=== PATIENT | female | born 1940 | race Caucasian/White ===

== ENCOUNTER 2019-09-18 08:33 | Outpatient (CLI) | payer MEDICARE, OTHER, SELFPAY ==
--- NOTE | 2019-09-18 | XR_ITS ---
WS: [id number] RIGHT SHOULDER: 3 VIEW(S) TECHNIQUE: Internal and external rotation with Y view. HISTORY: RT SHOULDER PAIN X 3 WEEKS COMPARISON: None available. No fracture or dislocation or soft tissue abnormality. Moderate to severe narrowing of the AC joint with small osteophytes extending inferiorly from the acr omion. There is additional hypertrophic bone formation from the posterior acromion extending towards the humeral head. Very mild narrowing of the glenohumeral joint. XR/XR shoulder RT min 2V* [id number] IMPRESSION: 1. Moderate to severe AC joint arthritis. 2. Large osteophyte on the posterior surface of the acromion may be encroachin g upon the posterior humeral head.
== END 2019-09-18 08:34 | disposition home or self-care (01) ==
LOC: RADOUTREAD 12:13
PROVIDERS: Family Provider Family Medicine; PCP Family Medicine; Visit Provider Nurse Practitioner
DX: Z76.89 Persons encountering health services in other specified circumstances (principal)

== ENCOUNTER → 2019-09-26 08:30 | Outpatient (BNVA) | payer MEDICARE, OTHER, SELFPAY | PROVIDERS: Family Provider Family Medicine; PCP Family Medicine; Visit Provider Internal Medicine Cardiovascular Disease | DX: E78.5 Hyperlipidemia, unspecified (principal) | CPT/HCPCS: 80061; 80076 ==

== ENCOUNTER 2019-10-07 07:21 | Outpatient (RCR) | payer MEDICARE, OTHER, SELFPAY | END 2019-10-28 23:59 | disposition home or self-care (01) | LOC: SPT 07:21 | PROVIDERS: Family Provider Family Medicine; PCP Family Medicine; Referring Provider Orthopaedic Surgery; Visit Provider Orthopaedic Surgery | DX: M75.21 Bicipital tendinitis, right shoulder (principal) | CPT/HCPCS: 97110; 97162; G0283 ==

== ENCOUNTER 2019-10-29 06:00 | Outpatient (RCR) | payer MEDICARE, OTHER, SELFPAY | END 2019-11-27 23:59 | disposition home or self-care (01) | LOC: SPT 06:00 | PROVIDERS: Family Provider Family Medicine; PCP Family Medicine; Referring Provider Orthopaedic Surgery; Visit Provider Orthopaedic Surgery | DX: M75.101 Unspecified rotator cuff tear or rupture of right shoulder, not specified as traumatic (principal) | CPT/HCPCS: 97110; G0283 ==

== ENCOUNTER 2019-11-12 08:27 | Outpatient (CLI) | payer MEDICARE, OTHER, SELFPAY ==
[2019-11-12 09:23] LABS: Alanine Aminotransferase 14 U/L (0-33); Albumin Level 3.9 g/dL (3.5-5.2); Alkaline Phosphatase 119 IU/L (35-105); Anion Gap 15.2 (5-19); Aspartate Amino Transferase 18 U/L (0-32); Blood Urea Nitrogen 10 mg/dL (8-23); Calcium 9.8 mg/dL (8.5-10.5); Carbon Dioxide 26 mmol/L (22-29); Chloride 98 mmol/L (98-107); Globulin 3.3 g/dL (1.3-4.6); Glucose 114 mg/dL (65-115); Osmolality Calculated 277 mOsm/kg (285-295); Potassium 4.2 mmol/L (3.5-5.1); Sodium 135 mmol/L (136-145); Thyroid Stimulating Hormone 1.76 uIU/mL (0.27-4.20); Total Bilirubin 0.4 mg/dL (0.15-1.2); Total Protein 7.2 g/dL (6.6-8.7)
[2019-11-12 09:49] LABS: Free T4 Free Thyroxine 1.53 ng/dL (0.82-1.77)
[2019-11-15 19:11] LABS: Vit D 1,25 (Oh)2, Total 52 pg/mL (18-72); Vit D2 1,25 (Oh)2 36 pg/mL; Vit D3 1,25 (Oh)2 16 pg/mL
== END 2019-11-12 08:28 | disposition home or self-care (01) ==
LOC: LAB 08:34
PROVIDERS: Family Provider Family Medicine; PCP Family Medicine; Visit Provider Internal Medicine Endocrinology, Diabetes & Metabolism
DX: E55.9 Vitamin D deficiency, unspecified (principal); M85.851 Other specified disorders of bone density and structure, right thigh; M85.852 Other specified disorders of bone density and structure, left thigh; E89.0 Postprocedural hypothyroidism
CPT/HCPCS: 36415; 80053; 82652; 84439; 84443

== ENCOUNTER 2019-11-13 14:42 | Outpatient (CLI) | payer MEDICARE, OTHER, SELFPAY ==
--- NOTE | 2019-11-13 15:00 | MR_ITS ---
WS: [id number] MRI RIGHT SHOULDER NONCONTRAST TECHNIQUE: Sagittal T2, coronal T1, T2 and proton density imaging. Axial gradient PDE imaging. CLINICAL INFORMATION: TENDINOPATHY OF RIGHT ROTATOR CUFF COMPARISON: None. FINDINGS: Degenerative arthritis AC joint with hypertrophic changes. Mild edema at the AC joint. Mild downslopi ng of the acromion. Slight subacromial spurring. High-grade tear involving the distal supraspinatus j ust proximal to the insertion with tear measuring approximately 10.3 mm. No tendon retraction. Chron ic thinning of the supraspinatus. Infraspinatus is intact. Teres minor is intact. Normal subscapularis. Normal biceps tendon in the bic ipital groove. Degenerative fraying of the glenoid labrum. No gross labral tears. Biceps labral ancho r appears intact. MR/MR shoulder RT wo con* [id number] IMPRESSION: 1. High-grade tear involving the supraspinatus insertion with intervening flui d signal measuring approximately 10.3 mm. No significant tendon retraction. Chr onic thinning of the supraspinatus distally. 2. Rotator cuff is otherwise intact. 3. Advanced degenerative arthritis at the AC joint with hypertrophic changes. Mild downsloping of the acromion with subacromial spurring. 4. Biceps tendon intact within the bicipital groove.
== END 2019-11-13 14:43 | disposition home or self-care (01) ==
LOC: RADWPI 14:49
PROVIDERS: Family Provider Family Medicine; PCP Family Medicine; Visit Provider Orthopaedic Surgery
DX: M67.813 Other specified disorders of tendon, right shoulder (principal); M75.101 Unspecified rotator cuff tear or rupture of right shoulder, not specified as traumatic; M19.011 Primary osteoarthritis, right shoulder
CPT/HCPCS: 73221

== ENCOUNTER 2019-11-28 06:00 | Outpatient (RCR) | payer MEDICARE, OTHER, SELFPAY | END 2019-12-04 11:00 | disposition home or self-care (01) | LOC: SPT 06:00 | PROVIDERS: Family Provider Family Medicine; PCP Family Medicine; Referring Provider Orthopaedic Surgery; Visit Provider Orthopaedic Surgery | DX: M75.101 Unspecified rotator cuff tear or rupture of right shoulder, not specified as traumatic (principal) | CPT/HCPCS: 97110; G0283 ==

== ENCOUNTER 2019-12-10 07:00 | Day surgery (SDC) | payer MEDICARE, OTHER, SELFPAY ==
[2019-12-09 10:02] VITALS: BMI 35.6
[2019-12-10] VITALS (8 sets, daily range): BP systolic 143–169; BP diastolic 61–116; PULSE 53–76; RESP 13–18; TEMP 36.4–36.8; O2SAT 95–100
[2019-12-10] MEDS: sodium chloride 0.9% 1,000 ML 30 ML IV (07:33)
--- NOTE | 2019-12-10 07:50 | ANES.PREANE2 ---
Pre-Anesthetic Assessment Pre-Anesthetic Assessment: Height/Weight: Height 1.57 m Weight 88.451 kg Temp Pulse Resp BP Pulse Ox 97.9 F 53 L 18 169/116 100 12/10/19 07:20 12/10/19 07:20 12/10/19 07:20 12/10/19 07:20 12/10/19 07:20 Preop Diagnosis: Right rotator cuff tear Proposed Procedure: Operation Date: 12/10/19 09:05 Proposed Procedures p Shoulder Arthroscopy(Right) - Smooth Jimenez MD s Rotator Cuff Repair and subacromial decompression 65260 M75.411 M19.011 M75.111(Not Applicable) - Smooth Jimenez MD Familial anesthetic complications: None Was Beta Usama taken within 24 hours: N/A Last intake: Intake Last Liquid Date 12/09/19 Last Liquid Time 20:00 Last Solid Date 12/09/19 Last Solid Time 20:00 Social: Social History: No alcohol and No tobacco Exam: Pre-Anes Outpt Exam: alert, oriented x 3, clear to auscultation bilaterally and regular rate & rhythm Airway: Cervical ROM: WNL MP: 4 (uvula removed at age 22) Dentition: Chipped Additional comments: fillings falling out, missing teeth, broken teeth Pulmonary: Pulmonary: Sleep apnea (cpap) and None reported CV/HEM: CV/HEM: CAD and HTN : : None reported Hepatic: Hepatic: None reported GI: GI: None reported Metabolic: Metabolic: Morbid obesity and Thyroid Musc/skel: Musc/skel: None reported Neuropsych: Neuropsych: None reported Anesthetic Plan: ASA status: 3 Anesthesia: General and Regional (specify below) (Innterscalne) Risk of > 500 ml blood loss (7ml/kg in children): No Meds/Allergies Current Medications: Current Medications Generic Name Dose Route Start Last Admin Trade Name Freq PRN Reason Stop Dose Admin Sodium Chloride 1,000 mls @ 30 ml s/hr 12/10/19 07:15 12/10/19 07:33 Sodium Chloride 0.9% IV 12/11/19 07:14 30 mls/hr .Q24H KAREN Administration PFSH Anesthesia PFSH: Medical History (Updated 12/09/19 @ 09:49 by Laura Danielson) CAD (coronary artery disease) Cardiomegaly HTN (hypertension) Hx of heart disorder Hypercholesteremia Tricuspid regurgitation Surgical History (Updated 12/09/19 @ 09:49 by Laura Danielson) H/O tubal ligation Hx of tonsillectomy Family History Other Dementia Diabetes Hypertension Social History Smoking and tobacco status: never smoked Alcohol intake: never Data Anesthesia Cardiac Studies: No Data to Display
--- NOTE | 2019-12-10 08:04 | W.PM.OPSUD ---
Surgery/Procedure H&P Update DATE OF PROCEDURE: December 10, 2019 DATE H&P PERFORMED: 12/02/19 H&P UPDATE INFORMATION: I have reviewed H&P completed within last 30 days PREOP DIAGNOSIS: Right rotator cuff tear PLANNED PROCEDURE: Operation Date: 12/10/19 09:05 Proposed Procedures p Shoulder Arthroscopy(Right) - Smooth Jimenez MD s Rotator Cuff Repair and subacromial decompression 65181 M75.411 M19.011 M75.111(Not Applicable) - Smooth Jimenez MD
[2019-12-10] MEDS: midazolam 1 mg/mL INJ 2 mL 2 MG IVP (08:09)
--- NOTE | 2019-12-10 08:46 | ANES.PROC ---
Anesthesia Procedures Procedure/Date: 12/10/19 Nerve Block ^: Nerve Block 1: Main Anesthesia: general anesthesia Time Out Performed: Yes Consent: requested by attending/covering physician, from patient, risks and benefits reviewed and patient agrees to proceed Nerve block location: interscalene (R) Anesthesia monitors applied: pulse oximetry, BP cuff and oxygen Nerve block position: semi sitting Anesthetic Used: ropivicaine 0.5% and with decadron (4 mg) Amount of anesthesia used (mL): 20 Ultrasound used to: recognize landmarks, visualize and ID brachial plexus and visualize and ID interscalene groove Interscalene/Femoral BLK: 2 stimuplex 22 g needle used for position and inplane approach Injection: neg aspiration of heme and paresthesia +/- Complications: none
--- NOTE | 2019-12-10 10:27 | PM.OP ---
Operative Report Date of procedure: December 10, 2019 Pre-op Diagnosis: Right rotator cuff tear Post-op diagnosis: same Post-op Findings: High-grade bursal tear right rotator cuff Procedure Done: Arthroscopic repair right rotator cuff with bursal limb Implants: H[employer]ed and [employer]hew Regeneten implant Pathology: none sent Anesthesia: General and Nerve Block (Interscalene) Estimated blood loss (mL): 20 Complications: None Findings: The patient had a intermediate grade bursal tear approximately a centimeter and a half from anterior to posterior with tearing extending approximately a centimeter and a half medially. Tendon quality was poor consistent with age. Articular aspect of the rotator cuff was intact and healthy. He had large subacromial spurs. Condition: stable Disposition: PACU Brief History: The patient is a 78-year-old female with right shoulder pain. She failed a program of injections and therapy with continued pain. MRI revealed tearing of her rotator cuff. He was taken to the operating room for better evaluation of the rotator cuff and likely repair. Due to the disc vascularity of the full-thickness rotator cuff tear a bio inductive implant was chosen Procedure: The after the patient was given an interscalene block he was taken to the operating room. She was given 2 g of Ancef and positioned in the lateral position with the right shoulder exposed. She was prepped and draped in the usual fashion. A timeout was performed. A posterior portal was made in to the posterior glenohumeral joint and anterior working portal was made just beneath the biceps. The diagnostic portion of glenohumeral arthroscopy was performed essentially with no abnormal findings. The scope was then moved to the subacromial space. There she was identified to have prominent subacromial spurring. The Hameed [employer] Nephew Werewolf probe was used to outline the leading edge of the acromion and approximately 5 mm of anterior and inferior acromion were removed with a 5.5 mm acromionizer. Attention was then focused on the rotator cuff. The high-grade dysvascular bursal tear was identified. Due to the disc vascularity the tendon biological augmentation was not thought to be the wisest choice. The greater tuberosity was debrided lightly exposing some punctate bleeding. Through a more inferior lateral portal the Hameed [employer] Nephew Regeneten implant was introduced. It was fixed medially with 3 soft tissue richar. Anteriorly with 1 staple, and posteriorly with 2 richar. 3 bone richar were placed laterally the repair was probed and found to be stable. The shoulder was irrigated with saline. Portals were closed with 3-0 Prolene. Sterile dressings were applied. Patient was extubated and taken to the recovery room in a sling in stable condition.
--- NOTE | 2019-12-10 10:28 | SUR.PHASEI ---
1025 PATIENT TO PACU AT THIS TIME FROM OR. RR EVEN AND UNLABORED, PLACED ON SIMPLE MASK AT 8L, SPO2 100%. DRESSING TO RIGHT SHOULDER, CDI WITH SLING IN PLACE. RIGHT HAND CAP REFILL AND RIGHT RADIAL PULSE INTACT
--- NOTE | 2019-12-10 10:49 | SUR.PHASEI ---
1047 PATIENT TO OPS AT THIS TIME. DENIES PAIN OR NAUSEA, TOLERATING ICE CHIPS WELL. DRESSING TO RIGHT SHOULDER, CDI.
== END 2019-12-10 11:45 | disposition home or self-care (01) ==
PROVIDERS: PCP Family Medicine; Visit Provider Orthopaedic Surgery
PROC: (CPT 29805; principal; 2019-12-10 09:00)
PROC: (CPT 29827; 2019-12-10 09:00)
DX: M75.101 Unspecified rotator cuff tear or rupture of right shoulder, not specified as traumatic (principal); G47.30 Sleep apnea, unspecified; I25.10 Atherosclerotic heart disease of native coronary artery without angina pectoris; I10 Essential (primary) hypertension; E66.01 Morbid (severe) obesity due to excess calories; Z68.35 Body mass index [BMI] 35.0-35.9, adult; Z82.49 Family history of ischemic heart disease and other diseases of the circulatory system; Z83.3 Family history of diabetes mellitus; Z79.82 Long term (current) use of aspirin
CPT/HCPCS: 29827; 12345; 96374; C1713; J0690; J1100; J2001; J2250; J2405; J2704; J2710; J2795; J3010; J3490; J7030

== ENCOUNTER 2019-12-30 06:00 | Outpatient (RCR) | payer MEDICARE, OTHER, SELFPAY | END 2020-01-27 23:59 | disposition home or self-care (01) | LOC: SPT 06:00 | PROVIDERS: PCP Family Medicine; Referring Provider Orthopaedic Surgery; Visit Provider Orthopaedic Surgery | DX: M75.81 Other shoulder lesions, right shoulder (principal) | CPT/HCPCS: 97110; 97161 ==

== ENCOUNTER 2020-01-28 06:00 | Outpatient (RCR) | payer MEDICARE, OTHER, SELFPAY | END 2020-02-27 23:59 | disposition home or self-care (01) | LOC: SPT 06:00 | PROVIDERS: PCP Family Medicine; Referring Provider Orthopaedic Surgery; Visit Provider Orthopaedic Surgery | DX: M77.9 Enthesopathy, unspecified (principal); Z47.89 Encounter for other orthopedic aftercare | CPT/HCPCS: 97110 ==

== ENCOUNTER 2020-02-10 09:07 | Outpatient (CLI) | payer MEDICARE, OTHER, SELFPAY ==
--- NOTE | 2020-02-10 09:30 | MM_ITS ---
WS: [id number] Right breast diagnostic digital mammogram, 02/10/2020 Clinical Data: HX OF BREAST CA (LT MAST) Comparison: 12/12/2018, 09/25/2017, 08/08/2016, 08/06/2015, 08/20/2014, 08/04/2014, 07/15/2013, 07/11/2011, 1 , 05/17/2009, 05/25/2008, 05/18/2008, 05/16/2007, 05/15/2006. Findings: The right breast shows heterogeneous density. No spiculated masses or clustered calcifications are se en. There are no secondary signs of carcinoma. MM/[place] [id number] Impression: 1. Negative right breast mammogram unchanged. 2. Recommend annual right breast mammogram BIRADS: 1-Negative FOLLOW UP: 1 Year Follow-up The CAD motor checker was used.
== END 2020-02-10 09:08 | disposition home or self-care (01) ==
PROVIDERS: PCP Family Medicine; Visit Provider Family Medicine
DX: Z85.3 Personal history of malignant neoplasm of breast (principal)
CPT/HCPCS: 77065

== ENCOUNTER → 2020-04-12 08:35 | Outpatient (BNVA) | payer MEDICARE, OTHER, SELFPAY | PROVIDERS: PCP Family Medicine; Visit Provider Internal Medicine Cardiovascular Disease | DX: E78.00 Pure hypercholesterolemia, unspecified (principal) | CPT/HCPCS: 80061; 80076 ==

== ENCOUNTER 2020-05-11 13:02 | Outpatient (CLI) | payer MEDICARE, OTHER, SELFPAY ==
--- NOTE | 2020-05-11 13:09 | CT_ITS ---
WS: [id number] CT ABDOMEN PELVIS TECHNIQUE: Contrast-enhanced CT of the abdomen and pelvis with coronal and sagittal reformatted image s. CLINICAL INFORMATION: LUQ PAIN, EPIGASTRIC COMPARISON: Multiple prior CTs including 2 5014, July 2013, December 2012, December 2011. DLP: 1077.[address] scans at [facility] use at least one of these dose optimization techniques: automat ed exposure control; mA and/or kV adjustment per patient size (includes targeted exams where dose is matched to clinical indication); or iterative reconstruction. FINDINGS: Normal liver. Normal portal vein and splenic vein. Normal spleen. Small esophageal hiatal hernia. Lizett g bases are well aerated. Slight atelectasis in the lung bases. Adrenal glands are normal. Normal renal parenchymal enhancement. No hydronephrosis. Small bilateral r enal cysts. Normal spleen. Normal caliber abdominal aorta. No upper abdominal or periaortic lymphade nopathy.Gallbladder is contracted with suggestion of cholelithiasis or sludge. This can be followed u p with ultrasound. Ectatic ventral abdominal wall with prior ventral abdominal wall hernia repair. Laxity of the ventral abdominal wall with adjacent bowel. No protruding or entrapped bowel. Tiny incidental fat-containing umbilical hernia. Sigmoid diverticulosis. No evidence of small or large bowel obstruction. Hepatic flexure constipation . CT/CT abdomen pelvis w con* [id number] IMPRESSION: 1. Prior postoperative changes ventral abdominal wall hernia repair. 2. Ectatic ventral abdominal wall with more focal midline herniation just abov e the umbilicus. Adjacent closely adhered bowel without evidence of incarcerati on or obstruction. Recommend correlation with midline hernia pain. 3. Small esophageal hiatal hernia. 4. Sigmoid diverticulosis. 5. Hepatic flexure constipation. 6. Gallbladder is contracted with suggestion of cholelithiasis or sludge. This can be followed up with ultrasound. 7. No other significant interval changes.
[2020-05-11] MEDS: iohexol 300 mg/mL 50 mL Btl PO (13:30)
[2020-05-11] MEDS: iohexol 300 mg/mL 100 mL Btl IV (14:51)
== END 2020-05-11 13:03 | disposition home or self-care (01) ==
LOC: RADWPI 13:07
PROVIDERS: PCP Family Medicine; Visit Provider Family Medicine
DX: R10.13 Epigastric pain (principal); R10.12 Left upper quadrant pain; K44.9 Diaphragmatic hernia without obstruction or gangrene; K57.30 Diverticulosis of large intestine without perforation or abscess without bleeding; K59.09 Other constipation
CPT/HCPCS: 74177; Q9967

== ENCOUNTER 2020-08-24 11:23 | Outpatient (CLI) | payer MEDICARE, OTHER, SELFPAY ==
--- NOTE | 2020-08-24 11:37 | FL_ITS ---
WS: [id number] Exam: FL barium swallow modified [id number] Date/Time of Exam: 08/24/2020 11:38 AM Reason For Exam: Other dysphagia Fluoroscopy time: 2.2 minutes Modified barium swallow was performed in conjunction with the speech pathology service. Multiple consistencies of barium foodstuffs were administered under fluoroscopic visualization. Swallowing function at the level of the oropharynx was normal. There was no evidence of aspiration. T here was no penetration into the laryngeal inlet. Esophageal motility was grossly normal. The patient tolerated all consistencies of the barium foodstuffs without difficulty. FL/FL barium swallow modifd [id number] IMPRESSION: 1. No sign of aspiration, penetration or other significant finding.
== END 2020-08-24 11:24 | disposition home or self-care (01) ==
LOC: RAD 11:33
PROVIDERS: PCP Family Medicine; Visit Provider Family Medicine
DX: T17.920A Food in respiratory tract, part unspecified causing asphyxiation, initial encounter (principal); X58.XXXA Exposure to other specified factors, initial encounter; R13.10 Dysphagia, unspecified
CPT/HCPCS: 74230; 92611

== ENCOUNTER 2020-09-14 08:09 | Outpatient (CLI) | payer MEDICARE, OTHER, SELFPAY ==
--- NOTE | 2020-09-14 08:33 | FL_ITS ---
WS: [id number] UPPER GI WITH AIR TECHNICAL: Double contrast upper GI. FLUOROSCOPY TIME: 2.3 minutes CLINICAL INFORMATION: DYSPHAGIA COMPARISON: None. FINDINGS: Swallowing: Normal. Esophagus: Moderate esophageal dysmotility with overall decreased contractility and delayed emptying. Standing column of contrast on the upright and supine views. No high-grade stricture or obstructing mass. Prominent reflux is visualized to the upper esophagus. Gastroesophageal reflux: Present. Small esophageal hiatal hernia. Stomach: Double contrast stomach is normal. Duodenum: Normal duodenal C-loop. Other findings: Surgical clips upper abdomen and left breast. FL/FL upper GI w air* [id number] IMPRESSION: 1. Moderate esophageal dysmotility with overall decreased contractility and de layed emptying. Standing column of contrast visualized on the upright and supin e views. 2. No evidence of esophageal stricture or obstructing mass. 3. Small esophageal hiatal hernia. Prominent Reflux is visualized on the upri ght and supine views to the upper esophagus 4. Unremarkable double contrast stomach and duodenum.
== END 2020-09-14 08:10 | disposition home or self-care (01) ==
LOC: RADWPI 08:32
PROVIDERS: PCP Family Medicine; Visit Provider Family Medicine
DX: R13.10 Dysphagia, unspecified (principal); K44.9 Diaphragmatic hernia without obstruction or gangrene
CPT/HCPCS: 74246

== ENCOUNTER → 2020-10-05 09:11 | Outpatient (BNVA) | payer MEDICARE, OTHER, SELFPAY | PROVIDERS: PCP Family Medicine; Visit Provider Internal Medicine Cardiovascular Disease | DX: E78.00 Pure hypercholesterolemia, unspecified (principal); I25.10 Atherosclerotic heart disease of native coronary artery without angina pectoris | CPT/HCPCS: 80061; 80076 ==

== ENCOUNTER 2020-11-16 08:02 | Outpatient (CLI) | payer MEDICARE, OTHER, SELFPAY ==
[2020-11-16 09:03] LABS: Alanine Aminotransferase 17 U/L (0-33); Albumin Level 4.2 g/dL (3.5-5.2); Alkaline Phosphatase 119 IU/L (35-105); Anion Gap 11.3 (5-19); Aspartate Amino Transferase 14 U/L (0-32); Blood Urea Nitrogen 14 mg/dL (8-23); Calcium 8.7 mg/dL (8.5-10.5); Carbon Dioxide 27 mmol/L (22-29); Chloride 96 mmol/L (98-107); Free T4 Free Thyroxine 1.35 ng/dL (0.82-1.77); Glucose 89 mg/dL (65-115); Osmolality Calculated 270 mOsm/kg (285-295); Potassium 4.3 mmol/L (3.5-5.1); Sodium 130 mmol/L (136-145); Total Bilirubin 0.5 mg/dL (0.15-1.2); Total Protein 7.2 g/dL (6.6-8.7)
[2020-11-27 02:02] LABS: Vit D 1,25 (Oh)2, Total 51 pg/mL (18-72); Vit D2 1,25 (Oh)2 11 pg/mL; Vit D3 1,25 (Oh)2 40 pg/mL
== END 2020-11-16 08:03 | disposition home or self-care (01) ==
LOC: LAB 08:08
PROVIDERS: PCP Family Medicine; Visit Provider Internal Medicine Endocrinology, Diabetes & Metabolism
DX: E55.9 Vitamin D deficiency, unspecified (principal); M85.851 Other specified disorders of bone density and structure, right thigh; M85.852 Other specified disorders of bone density and structure, left thigh; E89.0 Postprocedural hypothyroidism
CPT/HCPCS: 36415; 80053; 82652; 84439; 84443

== ENCOUNTER 2020-11-26 06:48 | Outpatient (CLI) | payer MEDICARE, OTHER, SELFPAY ==
[2020-11-26 06:48] VITALS: BMI 35.4
--- NOTE | 2020-11-26 07:47 | NMCV_ITS ---
NM parish perf SPECT r/s* [address] [place], [place] Age: 79 Gender: F : 1940 Exam Date: 11/26/2020 08:07 Ordering Phys: Josette Herman MD ([email or web address]) Technologist: HAM Shirley Exam Location: [facility] Indications: SOB STRESS TEST Please [facility] IMAGE PROTOCOL Rest/Stress 1 Lexiscan Day Radiopharmaceutical Dose (mCi) Administration Site Administered by Rest: Tc-99m 10.9 IV HAM Shirley Sestamibi Stress:Tc-99m 32.4 IV HAM Shirley Sestamilenard Rest: 26-Nov-2020 60 Discovery 630 Stress: 26-Nov-2020 45 Discovery 630 0.4mg Lexiscan. Supine position only as patient was unable to lay prone. SPECT RESULTS Technical Quality: Good Raw Data Analysis: Subdiaphragmatic activity Image Corrections: No attenuation or motion correction applied Summed Stress Score: 0 Summed Rest Score: 0 Summed Difference Score: 0 PERFUSION FINDINGS SPECT images demonstrate homogeneous tracer distribution throughout the myocardium. FUNCTIONAL RESULTS (calculated via Gated SPECT) Stress Image LV EF (%): 63 Stress EDV (mL):102 TID: 1.13 Stress ESV (mL):38 FUNCTIONAL FINDINGS: There is normal left ventricular systolic function. IMPRESSIONS 1. Normal myocardial perfusion imaging with no evidence of ischemia 2. LV systolic function is normal Antwan Garza MD (Electronically Signed) Final Date: 28 Nov 2020 18:01 S
--- NOTE | 2020-11-26 07:47 | ECG_ITS ---
[facility] Test Date: 2020-11-26 Pat Name: Ellen Bear Department: Room: Gender: Female Chest Pain Coordinator: : 1940 Requested By: Josette Herman Order Number: [id number] Esequiel MD: Antwan Garza M.D. Interpretive Statements NAME OF STUDY: LEXISCAN SESTAMIBI STRESS TEST INDICATION: [Chest Pain/sob] Procedure: At the baseline, the blood pressure was 141/96 mmHg with a heart rate of 55 bpm. The electrocardiogram showed normal sinus rhythm, normal axis with normal ST and T's. The Lexiscan was infused over a period of 20 seconds. A total of 0.4 mg of Lexiscan was infused. The stress phase was continued for a total of 5 minutes. Heart rate was at the end of stress phase was 80 bpm and a blood pressure of 162/92 mmHg. The EKG at the peak infusion revealed since normal sinus rhythm with no significant ST-T wave changes. Sestamibi was injected 20 seconds after the Lexiscan infusion. Blood pressure at the end of recovery phase was 154/97 mmHg with a heart rate of 76bpm. Conclusion: 1. Normal EKG response to Lexiscan infusion 2. No Lexiscan induced chest pain or cardiac arrhythmia. 3. Normal blood pressure and heart rate response. 4. Sestamibi/sestamibi perfusion scan pending; see separate report. Electronically Signed On 12-04-2020 12:29:12 CDT by Antwan Garza M.D. [email or web address]
[2020-11-26 09:23] VITALS: BP 154/79; PULSE 75
[2020-11-26] MEDS: regadenoson 0.4 Mg/5 ml Syringe IVP (09:23)
== END 2020-11-26 06:49 | disposition home or self-care (01) ==
LOC: CDL 06:49
PROVIDERS: PCP Family Medicine; Visit Provider Internal Medicine Cardiovascular Disease
DX: R06.02 Shortness of breath (principal); R07.9 Chest pain, unspecified
CPT/HCPCS: 78452; 93017; A9500; J2785

== ENCOUNTER 2021-03-23 08:43 | Outpatient (CLI) | payer MEDICARE, OTHER, SELFPAY ==
--- NOTE | 2021-03-23 08:53 | MM_ITS ---
WS: [id number] DIAGNOSTIC RIGHT DIGITAL MAMMOGRAM WITH CAD HISTORY: HX OF BREAST Ca; lt MASTECTOMY COMPARISON: 02/10/2020, 12/06/2018 and 09/25/2017 Technique: CC, MLO and ML views. Breast composition: The breasts are heterogeneously dense, which may obscure small masses. Scattered asymmetries and calcifications are stable. MM/[place] [id number] IMPRESSION: BI-RADS: 2-Benign FOLLOW UP: 1 Year Follow-up
== END 2021-03-23 08:44 | disposition home or self-care (01) ==
LOC: RADSHAW 08:49
PROVIDERS: PCP Family Medicine; Visit Provider Family Medicine
DX: Z85.3 Personal history of malignant neoplasm of breast (principal); Z90.12 Acquired absence of left breast and nipple
CPT/HCPCS: 77065

== ENCOUNTER → 2021-10-11 15:31 | Outpatient (BNVA) | payer MEDICARE, OTHER, SELFPAY | PROVIDERS: PCP Family Medicine; Visit Provider Internal Medicine Cardiovascular Disease | DX: R06.02 Shortness of breath (principal); I25.118 Atherosclerotic heart disease of native coronary artery with other forms of angina pectoris; E78.00 Pure hypercholesterolemia, unspecified | CPT/HCPCS: 99214 ==

== ENCOUNTER 2021-10-19 08:08 | Outpatient (CLI) | payer MEDICARE, OTHER, SELFPAY ==
[2021-10-19 08:56] LABS: Chol HDL Ratio 2.58 mg/dL (0.0-4.40); Cholesterol 168 mg/dL (0-200); HDL Cholesterol 65 mg/dL (60-100); LDL Cholesterol Calculated 81 mg/dL (50-129); LDL HDL Ratio 1.25 RATIO (0.00-3.22); Triglycerides 108 mg/dL (0-150)
== END 2021-10-19 08:09 | disposition home or self-care (01) ==
LOC: LAB 08:13
PROVIDERS: PCP Family Medicine; Visit Provider Internal Medicine Cardiovascular Disease
DX: E78.5 Hyperlipidemia, unspecified (principal)
CPT/HCPCS: 80061

== ENCOUNTER 2022-02-17 09:32 | Outpatient (CLI) | payer MEDICARE, OTHER, SELFPAY ==
--- NOTE | 2022-02-17 09:40 | FL_ITS ---
WS: [id number] FL barium swallow modifd [id number] REASON FOR EXAM: Other dysphagia FLUOROSCOPY TIME: 3min [id number] # OF SPOT FILMS: 2 FINDINGS: The swallowing of varying consistencies of barium was evaluated with video fluoroscopy under speech t herapy department supervision. Patient was in this sitting upright position. No eliseo aspiration was identified. A detailed report of the swallowing will be rendered by the [facility] therapy department. The barium tablet readily crossed the gastroesophageal junction. There was intermittent loss of the p rimary peristaltic wave in the thoracic esophagus without dilatation or significant tertiary contract ions. FL/FL barium swallow modifd [id number] IMPRESSION: Modified barium swallow as above.
== END 2022-02-17 09:33 | disposition home or self-care (01) ==
LOC: RAD 09:34
PROVIDERS: PCP Family Medicine; Visit Provider Family Medicine
DX: T17.998A Other foreign object in respiratory tract, part unspecified causing other injury, initial encounter (principal); X58.XXXA Exposure to other specified factors, initial encounter; R13.10 Dysphagia, unspecified
CPT/HCPCS: 74230; 92611

== ENCOUNTER 2022-03-27 14:12 | Outpatient (CLI) | payer MEDICARE, OTHER, SELFPAY ==
--- NOTE | 2022-03-27 14:16 | XR_ITS ---
WS: [id number] DEXA (DUAL ENERGY X-RAY ABSORPTIOMETRY) Bone mineral density was performed using a Sanako machine. HISTORY: POSTMENOPAUSAL COMPARISON: None available. Lumbar spine BMD (L1-L4): 0.954 g/cm2 T score: -1.9 Z score: -0.7 Total hip BMD: Left: 0.877 g/cm2. T score: -1.0 Z score: 0.5 Right: 0.749 g/cm2. T score: -2.1 Z score: -0.5 10 year probability of a major osteoporotic fracture is 43.9%. XR/XR DEXA axial skeleton* [id number] IMPRESSION: OSTEOPENIA based upon the WHO classification for females.
--- NOTE | 2022-03-27 14:16 | MM_ITS ---
WS: [id number] RIGHT 3D TOMOSYNTHESIS DIGITAL MAMMOGRAPHY WITH CAD CLINICAL INFORMATION: HX OF BREAST CA;LT MASTECTOMY HISTORY: COMPARISON: March 23, 2021 TECHNIQUE: 3 views of the right breast were obtained. FINDINGS: Scattered fibroglandular densities of the right breast. A few tiny scattered punctate calcifications. Vascular calcification. No suspicious focal mass, asymmetry, calcifications, or architectural distortion. No evidence of compa gnancy. MM/[place] [id number] IMPRESSION: BI-RADS: 2-Benign FOLLOW UP: 1 Year Follow-up Recommend return to annual diagnostic mammography.
== END 2022-03-27 14:13 | disposition home or self-care (01) ==
LOC: RAD 14:13
PROVIDERS: PCP Family Medicine; Visit Provider Nurse Practitioner Family
DX: Z85.3 Personal history of malignant neoplasm of breast (principal); Z78.0 Asymptomatic menopausal state; Z90.12 Acquired absence of left breast and nipple
CPT/HCPCS: 77061; 77080

== ENCOUNTER 2022-04-12 12:04 | Emergency (ER) | payer MEDICARE, OTHER, SELFPAY ==
[2022-04-12] VITALS (7 sets, daily range): BP systolic 136–173; BP diastolic 66–90; PULSE 52–84; RESP 16–19; TEMP 36.6; O2SAT 97–100; BMI 35.7
[2022-04-12 13:32] LABS: Basophils # 0.1 10^3/uL (0.0-0.1); Basophils % 0.6 %; Eosinophils # 0.1 10^3/uL (0.0-0.8); Eosinophils % 1.2 %; Hematocrit 36.6 % (37.0-47.0); Hemoglobin 12.3 g/dL (11.5-15.3); Lymphocytes # 1.9 10^3/uL (0.8-4.8); Lymphocytes % 18.8 %; Mean Corpuscular HGB Conc 33.6 g/dL (30.0-36.0); Mean Corpuscular Hemoglobin 29.8 pg (28.0-34.0); Mean Corpuscular Volume 88.6 fl (81-99); Mean Platelet Volume 10.3 fL (7.4-10.4); Monocytes # 0.8 10^3/uL (0.2-0.9); Monocytes % 7.6 %; Neutrophils # 7.33 10^3/uL (1.8-7.7); Neutrophils % 71.4 %; Nucleated Red Blood Cells % 0 %; Platelet Count 189 10^3/cmm (130-400); Red Blood Count 4.13 10^6/uL (4.1-5.3); Red Cell Distribution Width 13.4 % (12.1-15.1); White Blood Count 10.3 10^3/uL (4.0-10.0)
[2022-04-12 13:46] LABS: Alanine Aminotransferase 16 U/L (0-33); Albumin Level 3.8 g/dL (3.5-5.2); Alkaline Phosphatase 121 U/L (35-105); Anion Gap 14.4 (5-19); Aspartate Amino Transferase 17 U/L (0-32); Blood Urea Nitrogen 11 mg/dL (8-23); Calcium 9.3 mg/dL (8.5-10.5); Carbon Dioxide 22 mmol/L (22-29); Chloride 98 mmol/L (98-107); Globulin 3.2 g/dL (1.3-4.6); Glucose 97 mg/dL (65-115); Lipase 36 U/L (13-60); Osmolality Calculated 269 mOsm/kg (285-295); Potassium 4.4 mmol/L (3.5-5.1); Sodium 130 mmol/L (136-145); Total Bilirubin 0.4 mg/dL (0.15-1.2)
[2022-04-12 13:53] LABS: Lactate (Lactic Acid level) 0.8 mmol/L (0.5-2.2)
--- NOTE | 2022-04-12 14:20 | CTR_ITS ---
PROCEDURE INFORMATION: Exam: CT Abdomen And Pelvis Without Contrast Exam date and time: 04/12/2022 2:44 PM Age: 81 years old Clinical indication: Abdominal pain; Localized; Right lower quadrant (rlq); Prior surgery; Surgery type: Tubal and breast; Additional info: Rlq abdominal pain TECHNIQUE: Imaging protocol: Computed tomography of the abdomen and pelvis without contrast. Radiation optimization: All CT scans at this facility use at least one of these dose optimization techniques: automated exposure control; mA and/or kV adjustment per patient size (includes targeted exams where dose is matched to clinical indication); or iterative reconstruction. COMPARISON: CT abdomen pelvis w con* [id number] 05/11/2020 2:43 PM RADIATION DOSE METRICS: Total DLP (mGy-cm): 712.64 FINDINGS: Liver: Normal. No mass. Gallbladder and bile ducts: Normal. No calcified stones. No ductal dilation. Pancreas: Normal. No ductal dilation. Spleen: Normal. No splenomegaly. Adrenal glands: Normal. No mass. Kidneys and ureters: Left renal simple cyst measuring >1.0 cm. Stomach and bowel: Unremarkable. No obstruction. No mucosal thickening. Appendix: Normal appendix. Intraperitoneal space: Unremarkable. No free air. No significant fluid collection. Vasculature: Calcification of the abdominal aorta and/or iliac arteries consistent with atherosclerotic vessel disease. Lymph nodes: Unremarkable. No enlarged lymph nodes. Urinary bladder: Unremarkable as visualized. Reproductive: Unremarkable as visualized. Bones/joints: Unremarkable. No acute fracture. Soft tissues: Stable left mastectomy with left breast reconstruction from tissue in anterior abdominal wall. Interval appearance of inflammation/scarring in the region of the umbilicus consistent with sequela from laparoscopic surgery versus cellulitis. CT/CT abdomen pelvis con [id number] IMPRESSION: 1. Stable left mastectomy with left breast reconstruction from tissue in anterior abdominal wall. 2. Interval appearance of inflammation/scarring in the region of the umbilicus consistent with sequela from laparoscopic surgery versus cellulitis. 3. Normal appendix. COMMENTS: Consistent with the [employer]'s Incidental Findings Committee white paper (J Am Marie Radiol 2018): Any incidental renal lesion less than 1 cm or classified as too small to characterize, or any incidental cystic renal lesion characterized as simple-appearing, is likely benign. No follow-up imaging is recommended for these lesions per consensus recommendations based on imaging criteria.
--- NOTE | 2022-04-12 14:21 | W.ED.ABDPA2 ---
HPI - Abdominal Pain General: Chief Complaint: Abdominal Pain Stated Complaint: abd pain, sent by Márquez Time Seen by Provider: 04/12/22 14:10 Source: patient Mode of arrival: ambulatory History of Present Illness: 81 yo female who present to the ER with complaints of RLQ abd pain that began last evening. She had onset last evening at 2019 with nausea. She has not had any dysuria urgency frequency. Pain localizes to the RLQ and has increased since it began. No diarrhea, no hematochezia, no melena. MD elicited complaint: abdominal pain Onset (ago): hour(s) Location: RLQ Severity: moderate Quality: cramping Radiation: none Exacerbating factors: nothing Relieving factors: nothing Associated Symptoms: Denies anorexia, belching, bloating, change in bowel habits, change in stool character, chills, coffee ground emesis, constipation, GI cramping, diarrhea, dyspepsia, dysuria, excessive flatus, fever(s), heartburn, hematochezia, hematuria, hematemesis, fecal incontinence, loose stools, melena, nausea, poor appetite, syncope and vomiting Review of Systems Const: Denies: fever(s), chills, fatigue or malaise Card: Denies: chest pain, palpitations, irregular heart rhythm, edema, swelling of feet/ankles or syncope GI: Reports: abdominal pain; Denies: nausea, vomiting, hematemesis, coffee ground emesis, heartburn, diarrhea, constipation, bloating, GI cramping, belching, excessive flatus, fecal incontinence, change in bowel habits, change in stool character, hematochezia or melena : Denies: flank pain, difficulty voiding, dysuria, urinary frequency, urinary urgency or hematuria PFSH ED PFSH: Medical History Breast CA CAD (coronary artery disease) Cardiomegaly HTN (hypertension) Hx of heart disorder Hypercholesteremia Tricuspid regurgitation Surgical History H/O tubal ligation Hx of tonsillectomy S/P left knee arthroscopy Family History Mother CAD (coronary artery disease) Dementia Stroke Brother CAD (coronary artery disease) Cancer Father Cancer Lung disease Sister Cancer Family/Other Diabetes Other Hypertension Denies family history of Clotting disorder Chronic kidney disease (CKD) Suicide Anesthesia complication Bleeding disorder Social History Smoking and tobacco status: never smoked Alcohol intake: never Physical Exam Const: EXAM LIMITATIONS: altered mental status GENERAL APPEARANCE: cooperative and comfortable ORIENTATION/CONSCIOUSNESS: Yes awake, Yes oriented to person, Yes oriented to place and Yes oriented to time HENMT: COMMON NORMALS: normocephalic and atraumatic HEAD & SCALP: normocephalic and atraumatic Resp: COMMON NORMALS: normal respiratory effort, No retractions, No use of accessory muscles and clear to auscultation bilaterally AUSCULTATION: clear to auscultation bilaterally Cardio: COMMON NORMALS: regular rate, regular rhythm and No murmurs present (Cardio) RATE: regular rate RHYTHM: regular rhythm GI: COMMON NORMALS: No hepatosplenomegaly present AUSCULTATION: Yes normoactive bowel sounds PALPATION: Yes Tenderness to palpation present (GI) Details: RLQ, No Guarding due to palpation present (GI) and Yes No hepatosplenomegaly present Extremity: COMMON NORMALS: normal to inspection, capillary refill normal, no clubbing, cyanosis or edema, no calf tenderness and no pedal edema Neuro: SENSORIUM/ORIENTATION: Yes oriented to person, Yes oriented to place and Yes oriented to time Skin: COMMON NORMALS: no rashes or lesions noted GENERAL SKIN EXAM: no rashes or lesions noted Course Vital Signs: Vital signs: Vital Signs Temperature 97.9 F 04/12/22 12:49 Pulse Rate 84 04/12/22 16:10 Respiratory Rate 17 04/12/22 16:10 Blood Pressure 136/66 04/12/22 16:10 Pulse Oximetry 99 04/12/22 16:10 Oxygen Delivery Me thod 04/12/22 16:10 MDM - Abdominal Pain Medical Decision Making CT negative, lab work shows cystitis started on oral antibiotics follow-up as needed Medical Records I reviewed the patient's medical records. Lab Data I reviewed the patient's lab results. : 04/12/22 13:19 04/12/22 13:19 Labs/Radiology: Radiology Impressions Abdomen/Pelvis CT 04/12/22 14:20 IMPRESSION: 1. Stable left mastectomy with left breast reconstruction from tissue in anterior abdominal wall. 2. Interval appearance of inflammation/scarring in the region of the umbilicus consistent with sequela from laparoscopic surgery versus cellulitis. 3. Normal appendix. COMMENTS: Consistent with the [employer]'s Incidental Findings Committee white paper (J Am Marie Radiol 2018): Any incidental renal lesion less than 1 cm or classified as too small to characterize, or any incidental cystic renal lesion characterized as simple-appearing, is likely benign. No follow-up imaging is recommended for these lesions per consensus recommendations based on imaging criteria. Laboratory Results WBC 10.3 10^3/uL (4.0-10.0) H 04/12/22 13:19 RBC 4.13 10^6/uL (4.1-5.3) 04/12/22 13:19 Hgb 12.3 g/dL (11.5-15.3) 04/12/22 13:19 Hct 36.6 % (37.0-47.0) L 04/12/22 13:19 MCV 88.6 fl (81-99) 04/12/22 13:19 MCH 29.8 pg (28.0-34.0) 04/12/22 13:19 MCHC 33.6 g/dL (30.0-36.0) 04/12/22 13:19 RDW 13.4 % (12.1-15.1) 04/12/22 13:19 Plt Count 189 10^3/cmm (130-400) 04/12/22 13:19 MPV 10.3 fL (7.4-10.4) 04/12/22 13:19 Neut % (Auto) 71.4 % 04/12/22 13:19 Lymph % (Auto) 18.8 % 04/12/22 13:19 Blaine % (Auto) 7.6 % 04/12/22 13:19 Eos % (Auto) 1.2 % 04/12/22 13:19 Baso % (Auto) 0.6 % 04/12/22 13:19 Neut # (Auto) 7.33 10^3/uL (1.8-7.7) 04/12/22 13:19 Lymph # (Auto) 1.9 10^3/uL (0.8-4.8) 04/12/22 13:19 Blaine # (Auto) 0.8 10^3/uL (0.2-0.9) 04/12/22 13:19 Eos # (Auto) 0.1 10^3/uL (0.0-0.8) 04/12/22 13:19 Baso # (Auto) 0.1 10^3/uL (0.0-0.1) 04/12/22 13:19 Nucleated RBC % (auto) 0 % 04/12/22 13:19 Nucleated RBCs # 0.0 /100WBC 04/12/22 13:19 Sodium 130 mmol/L (136-145) L 04/12/22 13:19 Potassium 4.4 mmol/L (3.5-5.1) 04/12/22 13:19 Chloride 98 mmol/L (98-107) 04/12/22 13:19 Carbon Dioxide 22 mmol/L (22-29) 04/12/22 13:19 Anion Gap 14.4 (5-19) 04/12/22 13:19 BUN 11 mg/dL (8-23) 04/12/22 13:19 Creatinine 0.6 mg/dL (0.5-0.9) 04/12/22 13:19 GFR Calculation Not Reportable 04/12/22 13:19 Glucose 97 mg/dL (65-115) 04/12/22 13:19 Calculated Osmolality 269 mOsm/kg (285-295) L 04/12/22 13:19 Lactate 0.8 mmol/L (0.5-2.2) 04/12/22 13:19 Calcium 9.3 mg/dL (8.5-10.5) 04/12/22 13:19 Total Bilirubin 0.4 mg/dL (0.15-1.2) 04/12/22 13:19 AST 17 U/L (0-32) 04/12/22 13:19 ALT 16 U/L (0-33) 04/12/22 13:19 Alkaline Phosphatase 121 U/L (35-105) H 04/12/22 13:19 Total Protein 7.0 g/dL (6.6-8.7) 04/12/22 13:19 Albumin 3.8 g/dL (3.5-5.2) 04/12/22 13:19 Globulin 3.2 g/dL (1.3-4.6) 04/12/22 13:19 Lipase 36 U/L (13-60) 04/12/22 13:19 Urine Color Yellow (Yellow) 04/12/22 15:15 Urine Appearance Sl hazy (CLEAR) 04/12/22 15:15 Urine pH 6 (5-7) 04/12/22 15:15 Ur Specific [place] 1.015 (1.005-1.030) 04/12/22 15:15 Urine Protein Neg (Negative) 04/12/22 15:15 Urine Glucose (UA) Norm (Normal) 04/12/22 15:15 Urine Ketones Negative (Negative) 04/12/22 15:15 Urine Blood Neg (Negative) 04/12/22 15:15 Urine Nitrate Positive (Negative) H 04/12/22 15:15 Urine Bilirubin Neg (Negative) 04/12/22 15:15 Urine Urobilinogen Norm mg/dL (Negative) 04/12/22 15:15 Ur Leukocyte Esterase 2+ (Negative) H 04/12/22 15:15 Urine RBC 0-4 /hpf (0-2) H 04/12/22 15:15 Urine WBC 25-40 /hpf (0-5) H 04/12/22 15:15 Ur Squamous Epith Cells 5-10 /hpf (0-5) H 04/12/22 15:15 Amorphous Sediment Not Reportable 04/12/22 15:15 Urine Bacteria 4+ /hpf (NONE) H 04/12/22 15:15 Discharge Plan Discharge Condition: Stable Prescriptions: No Action All Day Allergy (cetirizine) 10 mg capsule 10 mg PO DAILY levothyroxine 88 mcg capsule 88 mcg PO DAILY nitroglycerin 0.4 mg tablet, sublingual 0.4 mg SUBLINGUAL Q5M PRN (Reason: chest pain) prevagen 1 tab PO DAILY pantoprazole 40 mg tablet,delayed release (DR/EC) 40 mg PO DAILY fluticasone propionate [Flonase Allergy Relief] 50 mcg/actuation spray,suspension 1 spray intranasal DAILY Rx Instructions: administer into each nostril PreserVision AREDS 14320-226-200 [id number] capsule 1 cap PO BID telmisartan 40 mg tablet 40 mg PO DAILY Qty: 100 3RF Metamucil 3.4 gram/5.4 gram Powder 1 tbsp PO BID Aspir-81 81 mg Tablet,Delayed Release (Dr/Ec) 81 mg PO DAILY Vitamin D2 1,250 mcg (50,000 unit) Capsule 1,250 mcg PO DAILY isosorbide mononitrate 60 mg tablet extended release 24 hr 60 mg PO BEDTIME ezetimibe 10 mg tablet 10 mg PO DAILY omega-3 acid ethyl esters 1 gram capsule 1 cap PO BID Referrals: Luís Márquez MD [Primary Care Provider] - Coding Level of Care Code ED Infantry Operations Specialist for Chg Fwd Exam Detailed
[2022-04-12] MEDS: ondansetron 2 mg/ML SDV 2 mL 4 MG IVP (15:10)
[2022-04-12] MEDS: morphine 4 mg/mL SDV 1 mL IVP (15:11)
[2022-04-12 15:55] LABS: Blood Urine Neg (Negative); Glucose Urine UA Norm (Normal); Ketones Urine Negative (Negative); Nitrate Urine Positive (Negative); Protein Urine Neg (Negative); Specific Gravity, Urine 1.015 (1.005-1.030); Urine Appearance SL Hazy (CLEAR); Urine Color Yellow (Yellow); pH Urine 6 (5-7)
[2022-04-12 15:56] LABS: Add Urine Culture? Yes; Add Urine Microscopic? YES; Bacteria Urine 4+ /hpf; Bilirubin Urine Neg (Negative); Leukocyte Esterase Urine 2+ (Negative); RBC Urine 0-4 /hpf (0-2); Urobilinogen Urine Norm (Negative); WBC Urine 25-40 /hpf (0-5)
== END 2022-04-12 17:47 | disposition home or self-care (01) ==
PROVIDERS: Emergency Medicine; Emergency Provider Family Medicine; PCP Family Medicine
DX: N30.90 Cystitis, unspecified without hematuria (principal); I10 Essential (primary) hypertension; E78.00 Pure hypercholesterolemia, unspecified; I25.10 Atherosclerotic heart disease of native coronary artery without angina pectoris; Z79.82 Long term (current) use of aspirin
CPT/HCPCS: 36415; 74176; 80053; 81001; 83605; 83690; 85025; 87077; 87086; 87186; 96374; 96375; 99285; J2270; J2405

== ENCOUNTER → 2022-04-19 14:54 | Outpatient (BNVA) | payer MEDICARE, OTHER, SELFPAY | PROVIDERS: PCP Family Medicine; Visit Provider Internal Medicine Cardiovascular Disease | DX: I25.118 Atherosclerotic heart disease of native coronary artery with other forms of angina pectoris (principal); I10 Essential (primary) hypertension; I36.1 Nonrheumatic tricuspid (valve) insufficiency; E78.00 Pure hypercholesterolemia, unspecified | CPT/HCPCS: 99214 ==

== ENCOUNTER → 2022-10-18 15:17 | Outpatient (BNVA) | payer MEDICARE, OTHER, SELFPAY | PROVIDERS: PCP Family Medicine; Visit Provider Internal Medicine Cardiovascular Disease | DX: I25.118 Atherosclerotic heart disease of native coronary artery with other forms of angina pectoris (principal); I10 Essential (primary) hypertension; I36.1 Nonrheumatic tricuspid (valve) insufficiency; E78.00 Pure hypercholesterolemia, unspecified; Z79.82 Long term (current) use of aspirin | CPT/HCPCS: 99214 ==

== ENCOUNTER 2022-12-15 07:11 | Outpatient (CLI) | payer MEDICARE, OTHER, SELFPAY ==
--- NOTE | 2022-12-15 | ECG_ITS ---
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 Interpretive Statements NAME OF STUDY: LEXISCAN SESTAMIBI STRESS TEST INDICATION: Chest Pain, PROCEDURE: At the baseline, the EKG revealed sinus bradycardia at a rate of 50 bpm.. The baseline heart was 50 bpm with a blood pressue of 126/88 mm of Hg Lexiscan was infused over a period of 20 seconds. A total of 0.4 milligrams of Lexiscan was infused. The stress phase was continued for a total of 5 minutes. Heart rate at the end of the stress phase was 74 bpm with a blood pressure 145/83 mm of Hg. The EKG at the peak infusion revealed no significant changes. Sestamibi was injected 20 seconds after the Lexiscan infusion. Heart rate at the end of the recovery phase was 71 bpm with a blood pressure of 146/86 mm of Hg. CONCLUSION: 1. No significant EKG changes with the LexiScan infusion 2. No LexiScan induced chest pain or cardiac arrhythmia 3. Normal blood pressure and heart rate response 4. Sestamibi/sestamibi perfusion scan pending; see separate report. Electronically Signed On 12-15-2022 20:26:06 CDT by Josette Herman M.D. [email or web address]
[2022-12-15 07:36] VITALS: BMI 38.0
--- NOTE | 2022-12-15 07:40 | NMCV_ITS ---
[facility] perf SPECT r/s* [id number] Chema Ellen Age: 81 Gender: F : 1940 Exam Date: 12/15/2022 08:21 Ordering Phys: Josette Herman MD ([email or web address]) Technologist: HAM Mcginnis Exam Location: [facility] Indications: Chest Pain STRESS TEST Please see separate stress test report in [facility] for full findings IMAGE PROTOCOL Rest/Stress 1 Lexiscan Day Radiopharmaceutical Dose (mCi) Administration Site Administered by Rest: Tc-99m 10.8 IV Riaz Hampton, FLASH DESIGNER Sestamibi Stress:Tc-99m 32.8 IV Riaz Hampton, FLASH DESIGNER Sestamibi Rest: 15-Dec-2022 60 Discovery 630 Stress: 15-Dec-2022 30 Discovery 630 0.4mg Lexiscan. Supine position only as patient was unable to lay prone. SPECT RESULTS Technical Quality: Excellent Raw Data Analysis: Adequate, Breast attenuation Image Corrections: No attenuation or motion correction applied Summed Stress Score: 0 Summed Rest Score: 0 Summed Difference Score: 0 PERFUSION FINDINGS Uniform myocardial tracer uptake. No significant perfusion abnormalities FUNCTIONAL RESULTS (calculated via Gated SPECT) Stress Image LV EF (%): 75 Stress EDV (mL):107 TID: 0.94 Stress ESV (mL):27 FUNCTIONAL FINDINGS: Segmental wall motion analysis revealing no gross wall motion abnormalities IMPRESSIONS 1. Unremarkable Myocardial perfusion imaging. 2. Normal LV ejection fraction 75%. 3. LV wall motion analysis revealing no gross wall motion abnormalities. 4. Normal LV volume Low probability for coronary ischemia, based on the above findings Compared to the study from 11/26/2020, there may not be a significant change Dr Josette Herman MD [facility] (Electronically Signed) Final Date: 15 Dec 2022 10:47 S
[2022-12-15] MEDS: regadenoson 0.4 Mg/5 ml Syringe IVP (09:19)
[2022-12-15 09:42] VITALS: BP 146/86; PULSE 72
== END 2022-12-15 07:12 | disposition home or self-care (01) ==
LOC: CDL 07:12
PROVIDERS: PCP Family Medicine; Visit Provider Internal Medicine Cardiovascular Disease
DX: I25.10 Atherosclerotic heart disease of native coronary artery without angina pectoris (principal); R07.9 Chest pain, unspecified
CPT/HCPCS: 36415; 78452; 93017; 96374; A9500; J2785

== ENCOUNTER 2023-04-03 14:57 | Outpatient (CLI) | payer MEDICARE, OTHER, SELFPAY ==
--- NOTE | 2023-04-03 15:08 | MM_ITS ---
WS: [id number] RIGHT DIAGNOSTIC DIGITAL TOMOSYNTHESIS MAMMOGRAPHY WITH CAD. HISTORY: ANNUAL - HX BR CA COMPARISON: 03/27/2022 and 03/23/2021 Technique: CC, MLO and ML views. Breast composition: There are scattered areas of fibroglandular density. There are a few scattered be nign calcifications. No mass. No distortion. IMPRESSION: MM/[place] [id number] BI-RADS: 2-Benign FOLLOW UP: 1 Year Follow-up
== END 2023-04-03 14:58 | disposition home or self-care (01) ==
LOC: RAD 15:00
PROVIDERS: PCP Family Medicine; Visit Provider Family Medicine
DX: Z85.3 Personal history of malignant neoplasm of breast (principal)
CPT/HCPCS: 77061; G0279

== ENCOUNTER → 2023-05-02 13:56 | Outpatient (BNVA) | payer MEDICARE, OTHER, SELFPAY | PROVIDERS: PCP Family Medicine; Visit Provider Internal Medicine Cardiovascular Disease | DX: I25.118 Atherosclerotic heart disease of native coronary artery with other forms of angina pectoris (principal); E78.00 Pure hypercholesterolemia, unspecified; I36.1 Nonrheumatic tricuspid (valve) insufficiency; I10 Essential (primary) hypertension | CPT/HCPCS: 99214 ==

== ENCOUNTER 2023-06-07 10:26 | Outpatient (CLI) | payer MEDICARE, OTHER, SELFPAY ==
--- NOTE | 2023-06-07 10:31 | CT_ITS ---
WS: [id number] CT ABDOMEN AND PELVIS WITH CONTRAST HISTORY: LLQ PAIN TECHNIQUE: Imaging performed of the abdomen and pelvis with IV contrast. Single phase imaging of the abdomen. Coronal and sagittal reformats are submitted. All CT scans at [facility] use at [address] one of these dose optimization techniques: automated exposure control; mA and/or kV adjustment per patient size (includes targeted exams where dose is matched to clinical indication); or iterative re construction. IV CONTRAST: Omnipaque 350; 100 mL IV. Oral contrast: Yes. DLP: 591.12 mGy.cm COMPARISON: 04/12/2022 Lower thorax: Lung bases are clear. Heart is normal size. Small hiatal hernia with contrast in the di stal esophagus. Liver/biliary system: Normal size with no intrahepatic dilatation. Gallbladder: Normal. No gallstones or wall thickening. No pericholecystic fluid. Pancreas: Normal size pancreas and pancreatic duct. No adjacent inflammation. Spleen: Normal size spleen. No mass or infarct. Adrenal glands: Normal. Right kidney: Normal size. Cortical cyst 8 mm upper pole. No obstruction. Left kidney: Normal size. 15 mm cortical cyst lower pole. Aorta: Mild atherosclerosis with no aneurysm. Lymphadenopathy: None. Free fluid: None. GI tract: Normally distended stomach. No small bowel obstruction. Moderate diffuse constipation. Mode rate diverticular burden in the descending and sigmoid colon. No acute diverticulitis. Abdominal wall: Marked thinning of the anterior abdominal wall. Pelvis: No free fluid or adenopathy within the pelvis. Mild fluid distention of the endometrial canal with slight retroversion. No adnexal mass. Bones: Increase in lumbar lordosis. IMPRESSION: 1. Moderate distal colonic sigmoid diverticula reticulosis. No evidence for acute diverticulitis. No GI tract obstruction. 2. Diffuse constipation. 3. Bilateral renal cysts. 4. Fluid distended endometrium. Consider transvaginal pelvic ultrasound follow-up to evaluate for ne oplasm or cervical stenosis.
[2023-06-07] MEDS: iohexol 350 mg/mL 500 mL Btl (per mL) IV (10:49)
[2023-06-07] MEDS: iohexol 350 mg/mL 500 mL Btl (per mL) PO (10:50)
[2023-06-07 13:23] LABS: Blood Urea Nitrogen 8 mg/dL (8-23)
== END 2023-06-07 10:27 | disposition home or self-care (01) ==
LOC: RAD 10:26
PROVIDERS: PCP Family Medicine; Visit Provider Family Medicine
DX: R10.32 Left lower quadrant pain (principal); K57.30 Diverticulosis of large intestine without perforation or abscess without bleeding; K59.00 Constipation, unspecified; N85.9 Noninflammatory disorder of uterus, unspecified
CPT/HCPCS: 74177; 82565; 84520; Q9967

== ENCOUNTER → 2023-11-22 09:52 | Outpatient (BNVA) | payer MEDICARE, OTHER, SELFPAY | PROVIDERS: PCP Family Medicine; Visit Provider Internal Medicine Cardiovascular Disease | DX: I25.118 Atherosclerotic heart disease of native coronary artery with other forms of angina pectoris (principal); I10 Essential (primary) hypertension; I36.1 Nonrheumatic tricuspid (valve) insufficiency; E78.00 Pure hypercholesterolemia, unspecified | CPT/HCPCS: 99214 ==

== ENCOUNTER → 2024-01-22 08:44 | Outpatient (BNVA) | payer MEDICARE, OTHER, SELFPAY | PROVIDERS: PCP Family Medicine; Referring Provider Family Medicine; Visit Provider Nurse Practitioner | DX: M17.11 Unilateral primary osteoarthritis, right knee | CPT/HCPCS: 20610; 99204; J1100; J2795; J3301 ==

== ENCOUNTER → 2024-05-02 08:03 | Outpatient (BNVA) | payer MEDICARE, OTHER, SELFPAY | PROVIDERS: PCP Family Medicine; Visit Provider Nurse Practitioner | DX: M17.11 Unilateral primary osteoarthritis, right knee (principal) | CPT/HCPCS: 20610; 99213; J1100; J2795; J3301 ==

== ENCOUNTER → 2024-05-19 15:27 | Outpatient (BNVA) | payer MEDICARE, OTHER, SELFPAY | PROVIDERS: PCP Family Medicine; Visit Provider Internal Medicine Cardiovascular Disease | DX: I25.10 Atherosclerotic heart disease of native coronary artery without angina pectoris (principal); I10 Essential (primary) hypertension; I36.1 Nonrheumatic tricuspid (valve) insufficiency; E78.00 Pure hypercholesterolemia, unspecified | CPT/HCPCS: 99214 ==

== ENCOUNTER 2024-05-28 10:20 | Outpatient (CLI) | payer MEDICARE, OTHER, SELFPAY ==
--- NOTE | 2024-05-28 10:26 | MM_ITS ---
WS: [id number] DIAGNOSTIC RIGHT DIGITAL BREAST TOMOSYNTHESIS MAMMOGRAPHY WITH CAD HISTORY: HX OF BREAST CANCER COMPARISON: None available. TECHNIQUE: RIGHT craniocaudad, mediolateral oblique, and mediolateral views are submitted with tomosy nydia and KELLY. Computer aided detection utilized. Breast composition: There are scattered areas of fibroglandular density. Scattered calcifications within each breast. No mass or distortion. No nipple retraction. MM/MM diag RT tomosynthesis [id number] IMPRESSION: BI-RADS: 2 - Benign. FOLLOW UP: 1 Year Follow-up
== END 2024-05-28 10:21 | disposition home or self-care (01) ==
LOC: RAD 10:21
PROVIDERS: PCP Family Medicine; Visit Provider Family Medicine
DX: Z85.3 Personal history of malignant neoplasm of breast (principal); R92.323 Mammographic fibroglandular density, bilateral breasts; R92.1 Mammographic calcification found on diagnostic imaging of breast
CPT/HCPCS: 77061; G0279

== ENCOUNTER → 2024-08-07 15:30 | Outpatient (BNVA) | payer MEDICARE, OTHER, SELFPAY | PROVIDERS: PCP Family Medicine; Visit Provider Nurse Practitioner | DX: M17.11 Unilateral primary osteoarthritis, right knee (principal) | CPT/HCPCS: 20610; 99213; J1100; J2795; J3301 ==

== ENCOUNTER 2024-08-15 09:33 | Emergency (ER) | payer MEDICARE, OTHER, SELFPAY ==
[2024-08-15 10:01] VITALS: BP 155/85; PULSE 60; RESP 17; TEMP 36.2; O2SAT 98; BMI 34.7
--- NOTE | 2024-08-15 10:53 | CT_ITS ---
WS: [id number] CT HEAD TECHNIQUE: Noncontrast CT of the head obtained from the skullbase to the vertex. CLINICAL INFORMATION: fall, head injury COMPARISON: MRI and CT 2019 DLP: 1037.[address] scans at [facility] use at least one of these dose optimization techniques: automated e xposure control; mA and/or kV adjustment per patient size (includes targeted exams where dose is matc hed to clinical indication); or iterative reconstruction. FINDINGS: No evidence of intracranial hemorrhage or mass effect. Ventricular system and basal cisterns are wal[place] nt. Moderate small vessel changes with moderate parenchymal volume loss. No extra-axial fluid collect ions. No evidence of mass or mass effect. Vascular calcification. Paranasal sinuses and mastoid air cells are well aerated. .Normal visualized soft tissues. CT/CT head wo con* [id number] IMPRESSION: 1. No evidence of intracranial hemorrhage or mass effect. 2. No acute intracranial findings.
--- NOTE | 2024-08-15 11:31 | ED_ITS ---
HPI - Fall 2 General: Chief Complaint: Fall Stated Complaint: fall Time Seen by Provider: 08/15/24 11:28 History of Present Illness: 83-year-old female with a history of ketty quent motion sickness issues, history of breast cancer history of hyperlipidemia, history of coronary artery disease and hypertension who presents the emergency room after having had a fall. She says she felt a bump on her head and she is felt nauseous and dizzy since. No chest pain. No abdominal pain some nausea but no vomiting. No altered mental status. Unsure if she lost consciousness. No focal motor deficits. Related Data Home Medications Medication Instructions Recorded Confirmed cetirizine 10 mg capsule (All Day 10 mg PO DAILY PRN allergies 11/10/19 08/15/24 Allergy (cetirizine)) levothyroxine 88 mcg capsule 88 mcg PO DAILY 11/10/19 08/15/24 psyllium husk 3.4 gram/5.4 gram 1 tbsp PO BID 12/09/19 08/15/24 oral powder (Metamucil) prevagen 1 tab PO DAILY 04/14/20 08/15/24 pantoprazole 40 mg tablet,delayed 40 mg PO DAILY 10/12/20 08/15/24 release fluticasone propionate 50 1 spray intranasal DAILY PRN 04/14/21 08/15/24 mcg/actuation nasal allergies spray,suspension (Flonase Allergy Relief) vitamins A,C,U-acei-iiykuo 4,296 1 cap PO BID 10/11/21 08/15/24 mcg-226 mg-90 mg capsule (PreserVision AREDS) aspirin 81 mg tablet,delayed 81 mg PO QPM 04/12/22 08/15/24 release alendronate 70 mg tablet 70 mg PO Q7D 05/19/24 08/15/24 celecoxib 200 mg capsule 200 mg PO DAILY 05/19/24 08/15/24 acetaminophen 500 mg tablet 500 mg PO Q6H PRN Pain 08/15/24 08/15/24 ergocalciferol (vitamin D2) 1,250 50,000 unit PO .Q30D 08/15/24 08/15/24 mcg (50,000 unit) capsule (Vitamin D2) ezetimibe 10 mg tablet 10 mg PO DAILY 08/15/24 08/15/24 isosorbide mononitrate 60 mg 60 mg PO QPM 08/15/24 08/15/24 tablet,extended release 24 hr telmisartan 40 mg tablet 40 mg PO DAILY 08/15/24 08/15/24 Previous Rx's Medication Instructions Recorded nitroglycerin 0.4 mg sublingual 0.4 mg sublingual Q5M PRN chest 10/18/22 tablet pain 30 days #30 tabs diclofenac sodium 1 % topical gel 4 g topical QID PRN joint pain 01/26/24 #100 grams cefdinir 300 mg capsule 300 mg PO BID 5 days #10 caps 08/15/24 meclizine 25 mg tablet 25 mg PO QID PRN dizziness #20 tabs 08/15/24 ondansetron 4 mg disintegrating 4 mg PO Q8H PRN nausea and 08/15/24 tablet vomiting #10 tabs Allergies Allergy/AdvReac Type Severity Reaction Status Date / Time morphine Allergy Intermediate N/V Verified 05/19/24 15:32 adhesive tape Allergy hives Verified 05/19/24 15:32 atorvastatin [From Lipitor] Allergy ALGY-Joint Verified 05/19/24 15:32 Pain azithromycin Allergy unknown Verified 05/19/24 15:32 codeine Allergy unknown Verified 05/19/24 15:32 meperidine [From Demerol] Allergy unknown Verified 05/19/24 15:32 propoxyphene [From Darvon] Allergy ALGY-Hives Verified 05/19/24 15:32 Review of Systems 2 Narrative: Constitutional symptoms: Negative except as documented in HPI. Skin symptoms: Negative except as documented in HPI. Eye symptoms: Negative except as documented in HPI. ENMT symptoms: Negative except as documented in HPI. Respiratory symptoms: Negative except as documented in HPI. Cardiovascular symptoms: Negative except as documented in HPI. Gastrointestinal symptoms: Negative except as documented in HPI. Genitourinary symptoms: Negative except as documented in HPI. Musculoskeletal symptoms: Negative except as documented in HPI. Neurologic symptoms: Negative except as documented in HPI. Psychiatric symptoms: Negative except as documented in HPI. Endocrine symptoms: Negative except as documented in HPI. PFSH ED 2 PFSH: Medical History Primary osteoarthritis of right knee Breast CA Hypercholesteremia Hx of heart disorder CAD (coronary artery disease) Tricuspid regurgitation HTN (hypertension) Cardiomegaly Surgical History S/P left knee arthroscopy Hx of tonsillectomy H/O tubal ligation Family History Mother CAD (coronary artery disease) Dementia Stroke Brother CAD (coronary artery disease) Cancer Father Cancer Lung disease Sister Cancer Family/Other Diabetes Other Hypertension Denies family history of Clotting disorder Chronic kidney disease (CKD) Suicide Anesthesia complication Bleeding disorder Social History Smoking and tobacco/nicotine status: never used tobacco/nicotine Alcohol intake: never Substance/Drug Use: never Physical Exam 2 Narrative: EXAM NARRATIVE: General: Alert, no acute distress. Skin: warm and dry Head: Normocephalic Neck: Trachea midline Eye: Extraocular movements are intact. Ears, nose, mouth and throat: Oral mucosa moist Respiratory: Respirations are non-labored Musculoskeletal: Normal ROM Neurological: Alert and oriented, No focal neurological deficit observed. Psychiatric: Cooperative, appropriate mood & affect. Course 2 Vital Signs: Vital signs: Vital Signs Temperature 97.1 F L 08/15/24 10:01 Pulse Rate 66 08/15/24 13:08 Respiratory Rate 17 08/15/24 10:01 Blood Pressure 155/80 08/15/24 13:08 Pulse Oximetry 100 08/15/24 13:08 Oxygen Delivery Me thod Room Air 08/15/24 10:01 MDM - Fall Medical Decision Making CT head: No acute intracranial process. no intracranial hemorrhage, no evidence of infarct. no evidence of acute fracture.This was reviewed and interpreted by myself the ER physician. Lab Review: Laboratory results were reviewed and interpreted by myself the emergency room physician. Mild leukocytosis. No anemia. No renal failure. Sodium is low at 128. This is chronic and her most recent was 130 before this. She does have a bit of a urinary tract infection with positive nitrate and 4+ bacteria with 11-20 whites. She does complain of dysuria and increased frequency. I reviewed the patient's medical record. Reexamination: Patient says she is a bit sore in her hip but she has been able to walk and go to the bathroom. No shortening or rotation. I offered imaging but does not seem necessary at this time. I also offered pain medications but she says all she can take is Tylenol. No altered mental status. No focal motor deficits. Meclizine has helped her dizziness some. Assessment and plan: Fall Head injury Vertigo Urinary tract infection ? Meclizine and Zofran in the emergency room. - Discharged home - Discussed plan with patient. Answered any questions. - Evaluation and treatment of this problem were appropriate in the emergency setting. Lab Data 08/15/24 11:54 08/15/24 11:[address] 08/15/24 10:53 IMPRESSION: 1. No evidence of intracranial hemorrhage or mass effect. 2. No acute intracranial findings. Laboratory Results WBC 11.32 10^3/uL (3.29-11.43) 08/15/24 11:54 RBC 4.84 10^6/uL (3.85-5.65) 08/15/24 11:54 Hgb 14.60 g/dL (11.27-16.99) 08/15/24 11:54 Hct 41.9 % (36-47) 08/15/24 11:54 MCV 86.6 fl (85-98) 08/15/24 11:54 MCH 30.2 pg (27-33) 08/15/24 11:54 MCHC 34.8 g/dL (30-55) 08/15/24 11:54 RDW 13.0 % (12.1-15.1) 08/15/24 11:54 Plt Count 194 10^3/cmm (157-399) 08/15/24 11:54 MPV 9.9 fL (7.4-10.4) 08/15/24 11:54 Neut % (Auto) 76.3 % 08/15/24 11:54 Lymph % (Auto) 13.9 % 08/15/24 11:54 [place] % (Auto) 8.4 % 08/15/24 11:54 Eos % (Auto) 0.4 % 08/15/24 11:54 Baso % (Auto) 0.6 % 08/15/24 11:54 Neut # (Auto) 8.64 10^3/uL (1.8-7.7) H 08/15/24 11:54 Lymph # (Auto) 1.6 10^3/uL (0.8-4.8) 08/15/24 11:54 [place] # (Auto) 1.0 10^3/uL (0.2-0.9) H 08/15/24 11:54 Eos # (Auto) 0.0 10^3/uL (0.0-0.8) 08/15/24 11:54 Baso # (Auto) 0.1 10^3/uL (0.0-0.1) 08/15/24 11:54 Nucleated RBC % (auto) 0 % 08/15/24 11:54 Nucleated RBCs # 0.0 /100WBC 08/15/24 11:54 Sodium 128 mmol/L (136-145) L 08/15/24 11:54 Potassium 4.2 mmol/L (3.5-5.1) 08/15/24 11:54 Chloride 92 mmol/L (98-107) L 08/15/24 11:54 Carbon Dioxide 20 mmol/L (22-29) L 08/15/24 11:54 Anion Gap 20.2 (5-19) H 08/15/24 11:54 BUN 12 mg/dL (8-23) 08/15/24 11:54 Creatinine 0.6 mg/dL (0.5-0.9) 08/15/24 11:54 GFR Calculation Not Reportable 08/15/24 11:54 Glucose 109 mg/dL (65-115) 08/15/24 11:54 Calculated Osmolality 266 mOsm/kg (285-295) L 08/15/24 11:54 Calcium 9.6 mg/dL (8.5-10.5) 08/15/24 11:54 Total Bilirubin 1.1 mg/dL (0.15-1.2) 08/15/24 11:54 AST 15 U/L (0-32) 08/15/24 11:54 ALT 11 U/L (0-33) 08/15/24 11:54 Alkaline Phosphatase 91 U/L (35-105) 08/15/24 11:54 Total Protein 7.5 g/dL (6.6-8.7) 08/15/24 11:54 Albumin 4.1 g/dL (3.5-5.2) 08/15/24 11:54 Globulin 3.4 g/dL (1.3-4.6) 08/15/24 11:54 Urine Color Yellow (Yellow) 08/15/24 12:34 Urine Appearance Clear (CLEAR) 08/15/24 12:34 Urine pH 8.5 (5-7) A 08/15/24 12:34 Ur Specific Hulbert 1.007 (1.005-1.030) 08/15/24 12:34 Urine Protein Negative (Negative) 08/15/24 12:34 Urine Glucose (UA) Negative (Normal) 08/15/24 12:34 Urine Ketones Trace (Negative) 08/15/24 12:34 Urine Blood Negative (Negative) 08/15/24 12:34 Urine Nitrate Positive (Negative) A 08/15/24 12:34 Urine Bilirubin Negative (Negative) 08/15/24 12:34 Urine Urobilinogen 0.2 mg/dL (Negative) 08/15/24 12:34 Ur Leukocyte Esterase 1+ (Negative) A 08/15/24 12:34 Urine RBC 0-2 /hpf (0-2) 08/15/24 12:34 Urine WBC 11-20 /hpf (0-5) H 08/15/24 12:34 Ur Squamous Epith Cells 6-10 /hpf (0-5) 08/15/24 12:34 Amorphous Sediment Not Reportable 08/15/24 12:34 Urine Bacteria 4+ /hpf (NONE) H 08/15/24 12:34 Hyaline Casts 0.40 /lpf 08/15/24 12:34 All radiology interpretation(s) finalized by discharge Discharge Plan Discharge Patient Disposition: Home Clinical Impression: Urinary tract infection, Fall, Head injury, Vertigo Condition: Stable Prescriptions: New meclizine 25 mg tablet 25 mg PO QID PRN (Reason: dizziness) Qty: 20 0RF ondansetron 4 mg tablet,disintegrating 4 mg PO Q8H PRN (Reason: nausea and vomiting) Qty: 10 0RF cefdinir 300 mg capsule 300 mg PO BID 5 Days Qty: 10 0RF No Action All Day Allergy (cetirizine) 10 mg capsule 10 mg PO DAILY PRN (Reason: allergies) levothyroxine 88 mcg capsule 88 mcg PO DAILY prevagen 1 tab PO DAILY pantoprazole 40 mg tablet,delayed release (DR/EC) 40 mg PO DAILY fluticasone propionate [Flonase Allergy Relief] 50 mcg/actuation spray,suspension 1 spray intranasal DAILY PRN (Reason: allergies) Rx Instructions: administer into each nostril PreserVision AREDS [id number] capsule 1 cap PO BID nitroglycerin 0.4 mg tablet, sublingual 0.4 mg sublingual Q5M PRN (Reason: chest pain) 30 Days Qty: 30 3RF Rx Instructions: until response; do not exceed 3 doses per episode celecoxib 200 mg capsule 200 mg PO DAILY alendronate 70 mg tablet 70 mg PO Q7D Rx Instructions: on Sunday diclofenac sodium 1 % gel 4 g topical QID PRN (Reason: joint pain) Qty: 100 2RF Rx Instructions: apply to single knee, ankle, foot; for foot includes sole/toes/top of foot Metamucil 3.4 gram/5.4 gram Powder 1 tbsp PO BID aspirin [Aspir-81] 81 mg Tablet,Delayed Release (Dr/Ec) 81 mg PO QPM acetaminophen 500 mg Tablet 500 mg PO Q6H PRN (Reason: Pain) ergocalciferol (vitamin D2) [Vitamin D2] 1,250 mcg (50,000 unit) capsule 50,000 unit PO .Q30D Rx Instructions: 10th of each month isosorbide mononitrate 60 mg tablet extended release 24 hr 60 mg PO QPM telmisartan 40 mg tablet 40 mg PO DAILY ezetimibe 10 mg tablet 10 mg PO DAILY Discharge Orders: Discharge ED (Routine); Ordered 08/15/24 Ordered By: Savana Oneal Referrals: Luís Márquez MD [Primary Care Provider] - Discharge Diet: Usual diet Discharge Activity: Increase activity as tolerated Patient Instructions: Fall Prevention for Older Adults (ED), Urinary Tract Infection in Older Adults (ED), Opioid Safety, Pain Management Activity Restrictions/Additional Instructions: Thank you for choosing [facility] for your healthcare needs today. Please realize this is an emergency room and that we are providing you with a medical screening exam and this may not be complete and all inclusive of all the testing and or work up that you may need to determine your ailment or severity of your illness. You have been screened and evaluated and felt safe for discharge. Health conditions do change or evolve sometimes and as such it is important that you follow up with your Primary Doctor to be re checked, 3-5 days is a general good time frame for follow up. You are always welcome to return to the ED for re assessment if your symptoms are worsening or you have new concerns Coding Level of Care Code ED [employer] Practitioner for Kay Ventura
[2024-08-15] MEDS: ondansetron 2 mg/ML SDV 2 mL 4 MG IVP (11:40)
[2024-08-15] MEDS: meclizine 25 mg tablet 50 MG PO (11:40)
[2024-08-15 12:00] LABS: Basophils # 0.1 10^3/uL (0.0-0.1); Basophils % 0.6 %; Eosinophils % 0.4 %; Hematocrit 41.9 % (36-47); Lymphocytes # 1.6 10^3/uL (0.8-4.8); Lymphocytes % 13.9 %; Mean Corpuscular HGB Conc 34.8 g/dL (30-55); Mean Corpuscular Hemoglobin 30.2 pg (27-33); Mean Corpuscular Volume 86.6 fl (85-98); Mean Platelet Volume 9.9 fL (7.4-10.4); Monocytes % 8.4 %; Neutrophils # 8.64 10^3/uL (1.8-7.7); Neutrophils % 76.3 %; Nucleated Red Blood Cells % 0 %; Platelet Count 194 10^3/cmm (157-399); Red Blood Count 4.84 10^6/uL (3.85-5.65); White Blood Count 11.32 10^3/uL (3.29-11.43)
[2024-08-15 12:16] LABS: Alanine Aminotransferase 11 U/L (0-33); Albumin Level 4.1 g/dL (3.5-5.2); Alkaline Phosphatase 91 U/L (35-105); Anion Gap 20.2 (5-19); Aspartate Amino Transferase 15 U/L (0-32); Blood Urea Nitrogen 12 mg/dL (8-23); Calcium 9.6 mg/dL (8.5-10.5); Carbon Dioxide 20 mmol/L (22-29); Chloride 92 mmol/L (98-107); Creatinine Clr Calc Pharmacy 55.2341; Globulin 3.4 g/dL (1.3-4.6); Glucose 109 mg/dL (65-115); Osmolality Calculated 266 mOsm/kg (285-295); Potassium 4.2 mmol/L (3.5-5.1); Sodium 128 mmol/L (136-145); Total Bilirubin 1.1 mg/dL (0.15-1.2); Total Protein 7.5 g/dL (6.6-8.7)
[2024-08-15 12:41] LABS: Bilirubin Urine Negative (Negative); Blood Urine Negative (Negative); Glucose Urine UA Negative (Normal); Ketones Urine Trace (Negative); Leukocyte Esterase Urine 1+ (Negative); Nitrate Urine Positive (Negative); Protein Urine Negative (Negative); Specific Gravity, Urine 1.007 (1.005-1.030); Urine Appearance Clear (CLEAR); Urine Color Yellow (Yellow); Urobilinogen Urine 0.2 mg/dL (Negative); pH Urine 8.5 (5-7)
[2024-08-15 12:46] LABS: Bacteria Urine 4+ /hpf; RBC Urine 0-2 /hpf (0-2)
[2024-08-15 12:59] LABS: Add Urine Culture? Yes
--- NOTE | 2024-08-15 13:07 | PC.PHAR ---
Pt states has only taken her Levothyroxine 88mg today 08/15/24.
[2024-08-15 13:08] VITALS: BP 155/80; PULSE 66; O2SAT 100
[2024-08-15] MEDS: cefTRIAXone 1,000 mg SDV 1000 MG IVP (13:52)
[2024-08-15] MEDS: acetaminophen 1,000 MG/100 ML PIGGYBACK 400 MG IV (14:12)
[2024-08-15 14:41] VITALS: BP 180/80; PULSE 53; O2SAT 100
== END 2024-08-15 14:42 | disposition home or self-care (01) ==
PROVIDERS: Emergency Provider Emergency Medicine; PCP Family Medicine
DX: N39.0 Urinary tract infection, site not specified (principal); S09.90XA Unspecified injury of head, initial encounter; R42 Dizziness and giddiness; W19.XXXA Unspecified fall, initial encounter; Z79.82 Long term (current) use of aspirin; I25.10 Atherosclerotic heart disease of native coronary artery without angina pectoris; I10 Essential (primary) hypertension
CPT/HCPCS: 70450; 80053; 81001; 85025; 87077; 87086; 87186; 96374; 96375; 99285; J0131; J0696; J2405; J8597

== ENCOUNTER → 2024-11-07 08:38 | Outpatient (BNVA) | payer MEDICARE, OTHER, SELFPAY | PROVIDERS: PCP Family Medicine; Visit Provider Nurse Practitioner | DX: M17.11 Unilateral primary osteoarthritis, right knee (principal) | CPT/HCPCS: 20610; J1100; J2795; J3301; J9999 ==

== ENCOUNTER 2024-11-21 07:09 | Outpatient (CLI) | payer MEDICARE, OTHER, SELFPAY ==
[2024-11-21 09:19] LABS: 25 Hydroxy Vitamin D 36 ng/mL (30-100); Alanine Aminotransferase 12 U/L (0-33); Albumin Level 3.9 g/dL (3.5-5.2); Alkaline Phosphatase 85 U/L (35-105); Aspartate Amino Transferase 16 U/L (0-32); Blood Urea Nitrogen 9 mg/dL (8-23); Calcium 9.1 mg/dL (8.5-10.5); Carbon Dioxide 25 mmol/L (22-29); Chloride 97 mmol/L (98-107); Globulin 3.1 g/dL (1.3-4.6); Glucose 84 mg/dL (65-115); Osmolality Calculated 274 mOsm/kg (285-295); Sodium 133 mmol/L (136-145); Thyroid Stimulating Hormone 6.29 uIU/mL (0.27-4.20); Total Bilirubin 0.7 mg/dL (0.15-1.2)
[2024-11-21 10:23] LABS: Free T4 Free Thyroxine 1.33 ng/dL (0.82-1.77)
== END 2024-11-21 07:10 | disposition home or self-care (01) ==
PROVIDERS: PCP Family Medicine
DX: E89.0 Postprocedural hypothyroidism (principal); E55.9 Vitamin D deficiency, unspecified; M85.851 Other specified disorders of bone density and structure, right thigh; M85.852 Other specified disorders of bone density and structure, left thigh
CPT/HCPCS: 36415; 80053; 82306; 84439; 84443

== ENCOUNTER 2025-01-04 19:23 | Emergency (ER) | payer MEDICARE, OTHER, SELFPAY ==
[2025-01-04 19:27] VITALS: BP 153/86; PULSE 76; RESP 16; TEMP 36.8; O2SAT 100; BMI 34.7
--- NOTE | 2025-01-04 19:33 | ECG_ITS ---
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 Measurements Intervals [place] Rate: 71 P: 0 CO: 0 QRS: 26 QRSD: 104 T: 50 QT: 392 QTc: 428 Interpretive Statements SINUS RHYTHM WITH SINUS ARRHYTHMIA Electronically Signed On 01-05-2025 08:55:33 CDT by Antwan Garza M.D. [email or web address]
--- NOTE | 2025-01-04 19:44 | XRR_ITS ---
PROCEDURE INFORMATION: Exam: XR Chest Exam date and time: 01/04/2025 7:51 PM Age: 84 years old Clinical indication: Pain; Chest pressure; Additional info: Cp TECHNIQUE: Imaging protocol: Radiologic exam of the chest. Views: 1 view. COMPARISON: CR XR chest 2V* [id number] 12/09/2024 8:24 AM FINDINGS: Lungs: Unremarkable. No consolidation. Pleural spaces: Unremarkable. No pleural effusion. No pneumothorax. Heart/Mediastinum: Unremarkable. No cardiomegaly. Bones/joints: Unremarkable. Soft tissues: Surgical clips along the left lateral chest wall. XR/XR chest 1V portable [id number] IMPRESSION: As above.
[2025-01-04 19:53] LABS: Basophils # 0.1 10^3/uL (0.0-0.1); Basophils % 0.8 %; Eosinophils # 0.1 10^3/uL (0.0-0.8); Eosinophils % 1.5 %; Hematocrit 33.6 % (36-47); Lymphocytes # 1.8 10^3/uL (0.8-4.8); Lymphocytes % 19.3 %; Mean Corpuscular HGB Conc 34.5 g/dL (30-55); Mean Corpuscular Hemoglobin 30.1 pg (27-33); Mean Corpuscular Volume 87.3 fl (85-98); Monocytes # 0.9 10^3/uL (0.2-0.9); Monocytes % 9.3 %; Neutrophils # 6.25 10^3/uL (1.8-7.7); Neutrophils % 68.7 %; Nucleated Red Blood Cells % 0 %; Platelet Count 183 10^3/cmm (157-399); Red Blood Count 3.85 10^6/uL (3.85-5.65); Red Cell Distribution Width 13.2 % (12.1-15.1); White Blood Count 9.11 10^3/uL (3.29-11.43)
--- NOTE | 2025-01-04 20:00 | W.ED.CHESTPA ---
HPI - Chest Pain General: Chief Complaint: Chest Pain Stated Complaint: chest pain Time Seen by Provider: 01/04/25 19:38 History of Present Illness: 84-year-old female presents with chest pain has been on and off today. She reports it started around 1 or 130. That just hurts. That she did take a 81 mg aspirin today. Patient reports that there is nothing seems make it worse or better. Associated symptoms: Deny fever(s) Related Data Home Medications ?Medication ?Instructions ?Recorded ?Confirmed cetirizine 10 mg capsule (All Day 10 mg PO DAILY PRN allergies 11/10/19 11/07/24 Allergy (cetirizine)) levothyroxine 88 mcg capsule 88 mcg PO DAILY 11/10/19 11/07/24 psyllium husk 3.4 gram/5.4 gram 1 tbsp PO BID 12/09/19 11/07/24 oral powder (Metamucil) prevagen 1 tab PO DAILY 04/14/20 11/07/24 pantoprazole 40 mg tablet,delayed 40 mg PO DAILY 10/12/20 11/07/24 release fluticasone propionate 50 1 spray intranasal DAILY PRN 04/14/21 11/07/24 mcg/actuation nasal allergies spray,suspension (Flonase Allergy Relief) vitamins A,C,D-okdf-gqxerg 4,296 1 cap PO BID 10/11/21 11/07/24 mcg-226 mg-90 mg capsule (PreserVision AREDS) aspirin 81 mg tablet,delayed 81 mg PO QPM 04/12/22 11/07/24 release alendronate 70 mg tablet 70 mg PO Q7D 05/19/24 11/07/24 celecoxib 200 mg capsule 200 mg PO DAILY 05/19/24 11/07/24 acetaminophen 500 mg tablet 500 mg PO Q6H PRN Pain 08/15/24 11/07/24 ergocalciferol (vitamin D2) 1,250 50,000 unit PO .Q30D 08/15/24 11/07/24 mcg (50,000 unit) capsule (Vitamin D2) ezetimibe 10 mg tablet 10 mg PO DAILY 08/15/24 11/07/24 isosorbide mononitrate 60 mg 60 mg PO QPM 08/15/24 11/07/24 tablet,extended release 24 hr telmisartan 40 mg tablet 40 mg PO DAILY 08/15/24 11/07/24 Previous Rx's ?Medication ?Instructions ?Recorded nitroglycerin 0.4 mg sublingual 0.4 mg sublingual Q5M PRN chest 10/18/22 tablet pain 30 days #30 tabs diclofenac sodium 1 % topical gel 4 g topical QID PRN joint pain 01/26/24 #100 grams meclizine 25 mg tablet 25 mg PO QID PRN dizziness #20 tabs 08/15/24 ondansetron 4 mg disintegrating 4 mg PO Q8H PRN nausea and 08/15/24 tablet vomiting #10 tabs Allergies Allergy/AdvReac Type Severity Reaction Status Date / Time morphine Allergy Intermediate N/V Verified 11/07/24 08:45 adhesive tape Allergy hives Verified 11/07/24 08:45 atorvastatin (From Lipitor) Allergy ALGY-Joint Verified 11/07/24 08:45 Pain azithromycin Allergy unknown Verified 11/07/24 08:45 codeine Allergy unknown Verified 11/07/24 08:45 meperidine (From Demerol) Allergy unknown Verified 11/07/24 08:45 propoxyphene (From Darvon) Allergy ALGY-Hives Verified 11/07/24 08:45 Review of Systems Const: Denies: fever(s) or chills Card: Reports: chest pain [facility] ED PFSH: Medical History Primary osteoarthritis of right knee Breast CA Hypercholesteremia Hx of heart disorder CAD (coronary artery disease) Tricuspid regurgitation HTN (hypertension) Cardiomegaly Surgical History S/P left knee arthroscopy Hx of tonsillectomy H/O tubal ligation Family History Mother CAD (coronary artery disease) Dementia Stroke Brother CAD (coronary artery disease) Cancer Father Cancer Lung disease Sister Cancer Family/Other Diabetes Other Hypertension Denies family history of Clotting disorder Chronic kidney disease (CKD) Suicide Anesthesia complication Bleeding disorder Social History Smoking and tobacco/nicotine status: never used tobacco/nicotine Alcohol intake: never Substance/Drug Use: never Physical Exam Const: COMMON NORMALS: patient oriented x3, healthy appearing and alert Resp: COMMON NORMALS: normal respiratory effort and clear to auscultation bilaterally EFFORT & INSPECTION: Yes able to speak in complete sentences AUSCULTATION: clear to auscultation bilaterally Cardio: COMMON NORMALS: regular rate and regular rhythm RATE: regular rate RHYTHM: regular rhythm GI: COMMON NORMALS: Soft to palpation and non-tender PALPATION: Yes Soft to palpation Extremity: COMMON NORMALS: normal to inspection, full ROM and capillary refill normal Neuro: COMMON NORMALS: patient oriented x3 and no focal motor deficits SENSORIUM/ORIENTATION: Yes alert Psych: COMMON NORMALS: mental status grossly normal and speech normal SPEECH: Yes normal speech Skin: COMMON NORMALS: no rashes or lesions noted and turgor normal GENERAL SKIN EXAM: no rashes or lesions noted and turgor normal Course Vital Signs: Vital signs: Vital Signs Temperature 98.3 F 01/04/25 19:27 Pulse Rate 70 01/04/25 20:35 Respiratory Rate 16 01/04/25 19:27 Blood Pressure 155/84 01/04/25 20:35 Pulse Oximetry 96 01/04/25 20:35 Oxygen Delivery Me thod Room Air 01/04/25 20:35 MDM - Chest Pain Medical Decision Making Patient's diagnostics were reviewed. She does have a slight decrease in her sodium. Patient otherwise has a EKG that shows no acute changes with rate controlled atrial fibs. Patient had negative troponin with her symptoms starting over 6 hours ago. Patient's symptoms had completely resolved. I did provide her with 500 mL bolus due to her mild hyponatremia. Patient was stable and discharged home. She has an appointment with her primary care provider in a couple days which I encouraged her to keep. She is to return to the ER with any concerns. Lab Data 01/04/25 19:45 01/04/25 19:45 Radiology Impressions Chest X-Ray 01/04/25 19:44 IMPRESSION: As above. Laboratory Results WBC 9.11 10^3/uL (3.29-11.43) 01/04/25 19:45 RBC 3.85 10^6/uL (3.85-5.65) 01/04/25 19:45 Hgb 11.60 g/dL (11.27-16.99) 01/04/25 19:45 Hct 33.6 % (36-47) L 01/04/25 19:45 MCV 87.3 fl (85-98) 01/04/25 19:45 MCH 30.1 pg (27-33) 01/04/25 19:45 MCHC 34.5 g/dL (30-55) 01/04/25 19:45 RDW 13.2 % (12.1-15.1) 01/04/25 19:45 Plt Count 183 10^3/cmm (157-399) 01/04/25 19:45 MPV 10.0 fL (7.4-10.4) 01/04/25 19:45 Neut % (Auto) 68.7 % 01/04/25 19:45 Lymph % (Auto) 19.3 % 01/04/25 19:45 [place] % (Auto) 9.3 % 01/04/25 19:45 Eos % (Auto) 1.5 % 01/04/25 19:45 Baso % (Auto) 0.8 % 01/04/25 19:45 Neut # (Auto) 6.25 10^3/uL (1.8-7.7) 01/04/25 19:45 Lymph # (Auto) 1.8 10^3/uL (0.8-4.8) 01/04/25 19:45 [place] # (Auto) 0.9 10^3/uL (0.2-0.9) 01/04/25 19:45 Eos # (Auto) 0.1 10^3/uL (0.0-0.8) 01/04/25 19:45 Baso # (Auto) 0.1 10^3/uL (0.0-0.1) 01/04/25 19:45 Nucleated RBC % (auto) 0 % 01/04/25 19:45 Nucleated RBCs # 0.0 /100WBC 01/04/25 19:45 Sodium 127 mmol/L (136-145) L 01/04/25 19:45 Potassium 4.1 mmol/L (3.5-5.1) 01/04/25 19:45 Chloride 95 mmol/L (98-107) L 01/04/25 19:45 Carbon Dioxide 20 mmol/L (22-29) L 01/04/25 19:45 Anion Gap 16.1 (5-19) 01/04/25 19:45 BUN 9 mg/dL (8-23) 01/04/25 19:45 Creatinine 0.5 mg/dL (0.5-0.9) 01/04/25 19:45 GFR Calculation Not Reportable 01/04/25 19:45 Glucose 122 mg/dL (65-115) H 01/04/25 19:45 Calculated Osmolality 264 mOsm/kg (285-295) L 01/04/25 19:45 Calcium 8.8 mg/dL (8.5-10.5) 01/04/25 19:45 Total Bilirubin 0.2 mg/dL (0.15-1.2) 01/04/25 19:45 AST 16 U/L (0-32) 01/04/25 19:45 ALT 14 U/L (0-33) 01/04/25 19:45 Alkaline Phosphatase 88 U/L (35-105) 01/04/25 19:45 Troponin T Baseline 9 ng/L (0-10) 01/04/25 19:45 NT-Pro-B Natriuret Pep 610 pg/mL (0-450) H 01/04/25 19:45 Total Protein 6.5 g/dL (6.6-8.7) L 01/04/25 19:45 Albumin 3.6 g/dL (3.5-5.2) 01/04/25 19:45 Globulin 2.9 g/dL (1.3-4.6) 01/04/25 19:45 All radiology interpretation(s) finalized by discharge Discharge Plan Discharge Patient Disposition: Home Clinical Impression: Hyponatremia, Atypical chest pain Condition: Stable Prescriptions: No Action All Day Allergy (cetirizine) 10 mg capsule 10 mg PO DAILY PRN (Reason: allergies) levothyroxine 88 mcg capsule 88 mcg PO DAILY prevagen 1 tab PO DAILY pantoprazole 40 mg tablet,delayed release (DR/EC) 40 mg PO DAILY fluticasone propionate [Flonase Allergy Relief] 50 mcg/actuation spray,suspension 1 spray intranasal DAILY PRN (Reason: allergies) Rx Instructions: administer into each nostril PreserVision AREDS [id number] capsule 1 cap PO BID nitroglycerin 0.4 mg tablet, sublingual 0.4 mg sublingual Q5M PRN (Reason: chest pain) 30 Days Qty: 30 3RF Rx Instructions: until response; do not exceed 3 doses per episode celecoxib 200 mg capsule 200 mg PO DAILY alendronate 70 mg tablet 70 mg PO Q7D Rx Instructions: on Sunday diclofenac sodium 1 % gel 4 g topical QID PRN (Reason: joint pain) Qty: 100 2RF Rx Instructions: apply to single knee, ankle, foot; for foot includes sole/toes/top of foot Metamucil 3.4 gram/5.4 gram Powder 1 tbsp PO BID aspirin [Aspir-81] 81 mg Tablet,Delayed Release (Dr/Ec) 81 mg PO QPM acetaminophen 500 mg Tablet 500 mg PO Q6H PRN (Reason: Pain) ergocalciferol (vitamin D2) [Vitamin D2] 1,250 mcg (50,000 unit) capsule 50,000 unit PO .Q30D Rx Instructions: 10th of each month isosorbide mononitrate 60 mg tablet extended release 24 hr 60 mg PO QPM telmisartan 40 mg tablet 40 mg PO DAILY ezetimibe 10 mg tablet 10 mg PO DAILY meclizine 25 mg tablet 25 mg PO QID PRN (Reason: dizziness) Qty: 20 0RF ondansetron 4 mg tablet,disintegrating 4 mg PO Q8H PRN (Reason: nausea and vomiting) Qty: 10 0RF Discharge Orders: Discharge ED (Routine); Ordered 01/04/25 Ordered By: El Conner Referrals: Luís Márquez MD [Primary Care Provider, Family Practice] Discharge Diet: Usual diet Discharge Activity: Resume usual activity Patient Instructions: Chest Pain - Noncardiac, Angina (ED), Chest Pain (ED), Hyponatremia (ED), Opioid Safety, Pain Management Activity Restrictions/Additional Instructions: Keep your appointment next week with your primary care provider. Return to the ER with any concerns. 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
[2025-01-04 20:15] LABS: Troponin(5th) Baseline 9 ng/L (0-10)
[2025-01-04] MEDS: nitroglycerin 0.4 mg sublingual Tablet SUBLINGUAL (20:17)
[2025-01-04] MEDS: ondansetron 2 mg/ML SDV 2 mL 4 MG IVP (20:17)
[2025-01-04] MEDS: aspirin 81 mg Chew Tablet 324 MG PO (20:17)
[2025-01-04 20:24] LABS: Alanine Aminotransferase 14 U/L (0-33); Albumin Level 3.6 g/dL (3.5-5.2); Alkaline Phosphatase 88 U/L (35-105); Anion Gap 16.1 (5-19); Aspartate Amino Transferase 16 U/L (0-32); Blood Urea Nitrogen 9 mg/dL (8-23); Calcium 8.8 mg/dL (8.5-10.5); Carbon Dioxide 20 mmol/L (22-29); Chloride 95 mmol/L (98-107); Creatinine Clr Calc Pharmacy 54.2818; Globulin 2.9 g/dL (1.3-4.6); Glucose 122 mg/dL (65-115); NT Pro B Type Natriuretic Pept 610 pg/mL (0-450); Osmolality Calculated 264 mOsm/kg (285-295); Potassium 4.1 mmol/L (3.5-5.1); Sodium 127 mmol/L (136-145); Total Bilirubin 0.2 mg/dL (0.15-1.2); Total Protein 6.5 g/dL (6.6-8.7)
[2025-01-04] MEDS: famotidine 20 mg/2 mL INJ IVP (20:33)
[2025-01-04 20:35] VITALS: BP 155/84; PULSE 70; O2SAT 96
[2025-01-04] MEDS: sodium chloride 0.9% 500 ML IV (20:54)
[2025-01-04 22:12] VITALS: BP 170/88; PULSE 68; O2SAT 97
== END 2025-01-04 22:13 | disposition home or self-care (01) ==
PROVIDERS: Emergency Provider Student in an Organized Health Care Education/Training Program; PCP Family Medicine
DX: E87.1 Hypo-osmolality and hyponatremia (principal); R07.89 Other chest pain; Z79.82 Long term (current) use of aspirin; Z85.3 Personal history of malignant neoplasm of breast; I25.10 Atherosclerotic heart disease of native coronary artery without angina pectoris; I10 Essential (primary) hypertension
CPT/HCPCS: 71045; 80053; 83880; 84484; 85025; 93005; 96361; 96374; 96375; 99285; J2405; J3490; J7040; J9999

== ENCOUNTER → 2025-01-13 14:03 | Outpatient (BNVA) | payer MEDICARE, OTHER, SELFPAY | PROVIDERS: PCP Family Medicine; Visit Provider Internal Medicine Cardiovascular Disease | DX: I25.10 Atherosclerotic heart disease of native coronary artery without angina pectoris (principal); I10 Essential (primary) hypertension; I36.1 Nonrheumatic tricuspid (valve) insufficiency; E78.00 Pure hypercholesterolemia, unspecified; Z79.82 Long term (current) use of aspirin | CPT/HCPCS: 99214 ==

== ENCOUNTER → 2025-02-06 08:28 | Outpatient (BNVA) | payer MEDICARE, OTHER, SELFPAY | PROVIDERS: PCP Family Medicine; Visit Provider Nurse Practitioner | DX: M17.11 Unilateral primary osteoarthritis, right knee (principal) | CPT/HCPCS: 20610; J1100; J2795; J3301; J9999 ==

== ENCOUNTER 2025-02-13 13:25 | Observation (INO) | payer MEDICARE, OTHER, SELFPAY ==
[2025-02-13] VITALS (8 sets, daily range): BP systolic 142–184; BP diastolic 81–105; PULSE 59–104; RESP 16–22; TEMP 36.6–36.7; O2SAT 96–100; BMI 35.2; BMI 34.0
--- OUTSIDE RECORDS SUMMARY | 2025-02-13 13:33 | XMS_ITS | Encounter Summary ---
Author Organization [facility] Address [address] [place] [address] Care Team Providers Care Food Cashier Name Role Phone Luís Márquez MD Primary Care Provider [phone] Encounter Details Date Type Department Care Team (Latest Contact Info) Description 11/03/1998 Outpatient Historical [facility] Endocrinology-[facility] Nito [address] [place] [address] Helena Abdul MD [address] [place], [place] [id number] Nontoxic uninodular goiter (Primary Dx) Social History Tobacco Use Types Packs/Day Years Used Date Smoking Tobacco: Never Assessed Comments Unknown Sex and Gender Information Value Date Recorded Sex Assigned at Not on file 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
--- OUTSIDE RECORDS SUMMARY | 2025-02-13 13:33 | XMS_ITS | Encounter Summary ---
Author Organization [facility] Address [address] [place] [address] Care Team Providers Care Instrument Setter Name Role Phone Luís Márquez MD Primary Care Provider [phone] Encounter Details Date Type Department Care Team (Late st Contact Info) Description 02/10/2025 External Device Data ST[place] ABSTRACTION Provider, Abstract NO ADDRESS ON FILE Social History Tobacco Use Types Packs/Day Years Used Date Smoking Tobacco: Never Smokeless Tobacco: Never Alcohol Use Standard Drinks/Week Comments Not Currently 0 (1 standard drink = 0.6 oz pur e alcohol) Comments No Sex and Gender Information Value Date Recorded Sex Assigned at Not on file 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 Sex Female 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 Gender Identity Not on file Sexual Orientation Not on file documented as of this encounter Plan of Treatment Upcoming Encounters Date Type Department Care Team (Late st Contact Info) Description 11/30/2025 2:30 PM CDT Office Visit Nguyen Endocrinology [facility] [address] [facility] [address] [place] [address] Ramakrishna Wallace MD [address] [address] documented as of this encounter Visit Diagnoses Not on filedocumented in this encounter Care Teams Instrument Setter Relationship Specialty Start Date End Date Luís Márquez MD [address] [phone] PCP - General Family Practice 09/30/18 documented as of this encounter
--- OUTSIDE RECORDS SUMMARY | 2025-02-13 13:33 | XMS_ITS | Clinical Summary ---
Author Organization [facility] Address [address] [facility] [place] [address] Care Team Providers Care Bundle Breaker Name Role Phone Luís Márquez MD Primary Care Provider [phone] Allergies Active Allergy Reactions Criticality Noted Date Comments Adhesive Tape Rash Low 08/11/2008 Atorvastatin Muscle Pain Low 08/11/2008 Codeine Other (See Comments) 08/11/2008 Erythromycin Nausea and Vomiting Low 08/11/2008 Thpnzlna-Mnyuoskbvg-Esb ymyxin Rash Low 08/11/2008 Prednisone Other (See Comments) 10/03/2011 Chest pain went to ER Propoxyphene Nausea and Vomiting Low 08/11/2008 Tramadol Nausea and Vomiting Low 08/10/2009 Medications ASPIRIN 81 mg Oral Tab Take 81 mg by mouth daily. Active NASACORT 55 mcg/Actuation Both Nostril Aero Administer 1 [place] in each nostril daily. Active ALEVE COLD & SINUS PO Take by mouth. Activ e Meclizine 25 mg Oral Cap Take by mouth. Very rarely only when travels Active calcium carbonate + vitamin D (CALCIUM WITH VITAMIN D) 600-400 mg-unit Oral Tab Take by mouth. Activ e pantoprazole (PROTONIX) 40 mg Oral TbEC Take 40 mg by mouth daily. Active isosorbide mononitrate SR 24 hour (IMDUR) 30 mg Oral tablet Take 30 mg by mouth daily distribution center associate. Active omega-3 acid ethyl esters (LOVAZA) 1 gram Capsule Take 1 Gram by mouth daily. Active naproxen sodium (ALEVE) 220 mg Tablet Take 220 mg by mouth every 4 hours as needed. Active PSEUDOEPHEDRINE HCL (SUDAFED 24 HOUR ORAL) Take by mouth. Acti ve VIT C/E/ZN/COPPR/LUT EIN/ZEAXAN (PRESERVISION AREDS 2 ORAL) Take by mouth. A ctive bimatoprost (LUMIGAN) 0.01 % solution 1 Drop daily at bedtime. Active meclizine (ANTIVERT) 25 mg tablet 7 Active guaiFENesin (MUCUS RELIEF) 600 mg Extended Release tablet Take 600 mg by mouth 2 times daily. Active ezetimibe-simvas tatin (VYTORIN) 10-10 mg tablet Take 1 Tablet by mouth daily at bedtime. Active ergocalciferol (Vitamin D2) 50,000 unit capsule Take 1 Capsule (50,000 Units) by mouth every 30 days. 12 Capsule 1 0 Active levothyroxine (SYNTHROID) 88 mcg tablet TAKE 1 TABLET DAILY 90 Tablet 3 1 Active Active Problems Problem Noted Date Diagnosed Date Meningioma 05/24/2011 Tinnitus 05/24/2011 SNHL (sensorineural hearing loss) 05/24/2011 BPPV (benign paroxysmal positional vertigo) 04/30 Hypothyroidism following radioiodine therapy Osteopenia 08/11/2008 Vitamin D deficiency 08/11/2008 Immunizations Immunization Administration Dates Next Due (SPIKEVAX) (12 YRS UP PRIMAR Y SERIES) COVID-19 VACCINE - MRNA-1273(PF) 100 MCG/0.5 ML IM SUSP 11/03/2020,10/05/2020 Influenza Vaccine High Dose 65+ Yrs IM 5 Social History Tobacco Use Types Packs/Day Years Used Date Smoking Tobacco: Never Smokeless Tobacco: Never Alcohol Use Standard Drinks/Week Comments Not Asked 0 (1 standard drink = 0.6 oz pur e alcohol) Comments No Sex and Gender Information Value Date Recorded Sex Assigned at Not on file 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 Gender Identity Not on file Sexual Orientation Not on file Occupation Industry Job Start Date Job End Date Not on file Not on file Not on file Not on file Last Filed Vital Signs Vital Sign Reading Time Taken Comments Blood Pressure 130/74 11/23/2020 10:59 AM CDT Pulse 54 11/23/2020 10:59 AM CDT Temperature - - Respiratory Rate - - Oxygen Saturation 98% 11/06/2017 11:15 AM CDT Inhaled Oxygen Concentration - - Weight 89.8 kg (198 lb) 11/23/2020 10:59 AM CDT Height 157.5 cm (5' 2 ) 11/23/2020 10:59 AM CDT Body Mass Index 36.21 11/23/2020 10:59 AM CDT Plan of Treatment Health Maintenance Due Date Last Done Comments DTAP/TDAP/TD VACCINES (1 - Tdap) 1960 PNEUMOCOCCAL VACCINE 50+ YEA RS (1 of 1 - PCV) 12/31/1991 ZOSTER VACCINE (1 of 2) 12/31/1991 RSV VACCINE (60+ or ) (1 - 1-dose 75+ series) 2016 COVID-19 Vaccine (3 - 2023-2 5 season) 2024 11/03/2020, 10/05/2020 INFLUENZA VACCINE (#1) 2025 05/10/2015 OSTEOPOROSIS SCREENING 11/23/2025 , 10/15/2018, 10/15/2018, Additional history exists COLORECTAL SCREENING Discontinued 10/09/2013 Colorectal Cancer Screening Discontinued FIT-DNA Q 3 years Discontinued FIT/FOBT Q 1 year Discontinued Flex Sig/CT Colonography Q 5 years Discontinued Procedures Procedure Name Priority Date/Time Associated Diagnosis Comments XR DEXA BONE DENSITY AXIAL 1 OR MORE SITES Routine 11/23/2020 11:47 AM CDT Vitamin D deficiency Osteopenia of both thighs from Last 3 Months or Most Recently Relevant to Health Maintenance Results * XR DEXA BONE DENSITY AXIAL 1 OR MORE SITES (11/23/2020 11:47 AM CDT) Anatomical Region Laterality Modality Nuclear Medicine 11/23/2020 11:4 7 AM CDT Impressions 11/23/2020 12:59 PM CDT IMPRESSION: Stable abnormal examination demonstrating low bone density/osteopenic values at all locations without important change by comparison with values lying at the average the patient's age-matched control. Narrative 11/23/2020 12:59 PM CDT DEXA Evaluation of the Lumbar Spine and Left Proximal Femur Reason for Consultation: Low bone density/osteopenia/vitamin D deficiency. Evaluation of bone mineral density. The following absorptiometry data were obtained. The quality of this examination is acceptable with regards to count density, processed images, data display and lack of important artifacts (including but not limited to motion and attenuation artifacts). Serial examination number six with comparison to prior exams from 8448-2917. L1-L4 BMD (g/cm2): 1.021 Adult T-score: -1.3 Adult Z-score: -0.3 Left Femoral Neck BMD (g/cm2): 0.804 Adult T-score: -1.7 Adult Z-score: -0.1 Left Total Hip BMD (g/cm2): 0.886 Adult T-score: -1.0 Adult Z-score: 0.4 Procedure Note Gordon Rodriguez MD - 11/23/2020 DEXA Evaluation of the Lumbar Spine and Left Proximal Femur Reason for Consultation: Low bone density/osteopenia/vitamin D deficiency. Evaluation of bone mineral density. The following absorptiometry data were obtained. The quality of this examination is acceptable with regards to count density, processed images, data display and lack of important artifacts (including but not limited to motion and attenuation artifacts). Serial examination number six with comparison to prior exams from [id number]. L1-L4 BMD (g/cm2): 1.021 Adult T-score: -1.3 Adult Z-score: -0.3 Left Femoral Neck BMD (g/cm2): 0.804 Adult T-score: -1.7 Adult Z-score: -0.1 Left Total Hip BMD (g/cm2): 0.886 Adult T-score: -1.0 Adult Z-score: 0.4 IMPRESSION: Stable abnormal examination demonstrating low bone density/osteopenic values at all locations without important change by comparison with values lying at the average the patient's age-matched control. Ramakrishna Wallace MD DIAGNOSTIC IMAGING ORDERABLES Final Result from Last 3 Months or Most Recently Relevant to Health Maintenance Insurance MEDICARE PART A AND B [facility] FOR [facility] Care Teams Bundle Breaker Relationship Specialty Start Date End Date Luís Márquez MD [address] [facility] 1 [place] [address] PCP - General Family Practice 09/30/18
--- OUTSIDE RECORDS SUMMARY | 2025-02-13 13:33 | XMS_ITS | Encounter Summary ---
Author Organization [facility] Address [address] [place] [address] Care Team Providers Care Gift Wrapper Name Role Phone Luís Márquez MD Primary Care Provider [phone] Encounter Details Date Type Department Care Team (Latest Contact Info) Description 11/03/1998 Outpatient Historical [facility] Imaging Services-[facility] Juan Wirt [address] [place] [address] Helena Abdul MD [address] [place], [place] [address] Nontoxic uninodular goiter (Primary Dx) Social History Tobacco Use Types Packs/Day Years Used Date Smoking Tobacco: Never Assessed Comments Unknown Sex and Gender Information Value Date Recorded Sex Assigned at Not on file 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
--- OUTSIDE RECORDS SUMMARY | 2025-02-13 13:33 | XMS_ITS | Encounter Summary ---
Author Organization [facility] Address [address] [place] [address] Care Team Providers Care Clinical Supervisor Name Role Phone Luís Márquez MD Primary Care Provider [phone] Encounter Details Date Type Department Care Team (Late st Contact Info) Description 08/13/2007 Outpatient Historical [facility] Endocrinology-[facility] [place] [address] [place] [address] Moises Hidalgo MD NO ADDRESS ON FILE Social History Tobacco Use Types Packs/Day Years Used Date Smoking Tobacco: Never Assessed Comments Unknown Sex and Gender Information Value Date Recorded Sex Assigned at Not on file 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
--- OUTSIDE RECORDS SUMMARY | 2025-02-13 13:33 | XMS_ITS | Encounter Summary ---
Author Organization [facility] Address [address] [place] [address] Care Team Providers Care Glass Unloading Equipment Tender Name Role Phone Luís Márquez MD Primary Care Provider Encounter Details Date Type Department Care Team (Latest Contact Info) Description 08/14/2006 Outpatient Historical [facility] Endocrinology-[facility]oo farrah [place] [address] [place] [address] Moises Hidalgo MD NO ADDRESS ON FILE Unspecified Osteoporosis (Primary Dx); Unspecified Hypothyroidism Social History Tobacco Use Types Packs/Day Years Used Date Smoking Tobacco: Never Assessed Comments Unknown Sex and Gender Information Value Date Recorded Sex Assigned at Not on file 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
--- OUTSIDE RECORDS SUMMARY | 2025-02-13 13:33 | XMS_ITS | Encounter Summary ---
Author Organization [facility] Address [address] [place] [address] Care Team Providers Care Outside Deliverer Name Role Phone Luís Márquez MD Primary Care Provider [phone] Encounter Details Date Type Department Care Team (Latest Contact Info) Description 11/17/1997 Outpatient Historical [facility] Imaging Services-Yoseph Martinez [place] [address] [place] [address] Raffy Mccarty MD [address] [place] [address] Abdominal pain, unspecified site (Primary Dx); Debility, unspecified Social History Tobacco Use Types Packs/Day Years Used Date Smoking Tobacco: Never Assessed Comments Unknown Sex and Gender Information Value Date Recorded Sex Assigned at Not on file 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
--- OUTSIDE RECORDS SUMMARY | 2025-02-13 13:33 | XMS_ITS | Encounter Summary ---
Author Organization [facility] Address [address] [facility] Attn: [place] [address] Care Team Providers Care Electronics Mechanic Apprentice Name Role Phone Luís Márquez MD Primary Care Provider [phone] Encounter Details Date Type Department Care Team (Late st Contact Info) Description 08/02/2000 Outpatient Historical Helena Abdul MD [address] [place] [address] Social History Tobacco Use Types Packs/Day Years Used Date Smoking Tobacco: Never Assessed Comments Unknown Sex and Gender Information Value Date Recorded Sex Assigned at Not on file 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
--- OUTSIDE RECORDS SUMMARY | 2025-02-13 13:33 | XMS_ITS | Encounter Summary ---
Author Organization [facility] Address [address] [place] [address] Care Team Providers Care Ladle Watcher Name Role Phone Luís Márquez MD Primary Care Provider [phone] Encounter Details Date Type Department Care Team (Late st Contact Info) Description 02/11/2025 External Device Data STL ABSTRACTION Provider, Abstract NO ADDRESS ON FILE Social History Tobacco Use Types Packs/Day Years Used Date Smoking Tobacco: Never Smokeless Tobacco: Never Alcohol Use Standard Drinks/Week Comments Not Currently 0 (1 standard drink = 0.6 oz pur e alcohol) Comments No Sex and Gender Information Value Date Recorded Sex Assigned at Not on file 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 Gender Identity Not on file Sexual Orientation Not on file documented as of this encounter Plan of Treatment Upcoming Encounters Date Type Department Care Team (Late st Contact Info) Description 11/30/2025 2:30 PM CDT Office Visit Nguyen Endocrinology [facility] [address] [facility] [address] [place] [address] Ramakrishna Wallace MD [address] [address] documented as of this encounter Visit Diagnoses Not on filedocumented in this encounter Care Teams Ladle Watcher Relationship Specialty Start Date End Date Luís Márquez MD [address] [phone] PCP - General Family Practice 09/30/18 documented as of this encounter
--- OUTSIDE RECORDS SUMMARY | 2025-02-13 13:33 | XMS_ITS | Encounter Summary ---
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) Social History Tobacco Use Types Packs/Day Years Used Date Smoking Tobacco: Never Assessed Comments Unknown Sex and Gender Information Value Date Recorded Sex Assigned at Not on file 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
--- OUTSIDE RECORDS SUMMARY | 2025-02-13 13:33 | XMS_ITS | Encounter Summary ---
Author Organization [facility] Address [address] [place] [address] Care Team Providers Care Hockey Player Name Role Phone Luís Márquez MD Primary Care Provider [phone] Encounter Details Date Type Department Care Team (Latest Contact Info) Description 10/06/1998 Outpatient Historical [facility] GENERAL SURGERY Jose M Jackson MD [address] [place] [address] Personal history of malignant neoplasm of breast (Primary Dx) Social History Tobacco Use Types Packs/Day Years Used Date Smoking Tobacco: Never Assessed Comments Unknown Sex and Gender Information Value Date Recorded Sex Assigned at Not on file 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
--- OUTSIDE RECORDS SUMMARY | 2025-02-13 13:33 | XMS_ITS | Encounter Summary ---
Author Organization [facility] Address [address] [place] [address] Care Team Providers Care Oil Boiler Name Role Phone Luís Márquez MD Primary Care Provider [phone] Encounter Details Date Type Department Care Team (Latest Contact Info) Description 10/20/1998 Outpatient Historical [facility] GENER[facility] SURGERY Jose M Jackson MD [address] [place] [address] Personal history of malignant neoplasm of breast (Primary Dx) Social History Tobacco Use Types Packs/Day Years Used Date Smoking Tobacco: Never Assessed Comments Unknown Sex and Gender Information Value Date Recorded Sex Assigned at Not on file 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
--- OUTSIDE RECORDS SUMMARY | 2025-02-13 13:33 | XMS_ITS | Encounter Summary ---
Author Organization [facility] Address [address] [place] [address] Care Team Providers Care Mud Mixer Name Role Phone Luís Márquez MD Primary Care Provider [phone] Encounter Details Date Type Department Care Team (Late st Contact Info) Description 04/07/[address] 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
--- OUTSIDE RECORDS SUMMARY | 2025-02-13 13:33 | XMS_ITS | Encounter Summary ---
Author Organization [facility] Address [address] [place] [address] Care Team Providers Care University Partnership Rep Name Role Phone Luís Márquez MD Primary Care Provider [phone] Encounter Details Date Type Department Care Team (Latest Contact Info) Description 02/11/2001 Outpatient Historical [facility] Endocrinology-Joo farrah Martinez [place] [address] [place] [address] Helena Abdul MD [address], [place] [address] Other postablative hypothyroidism (Primary Dx) Social History Tobacco Use Types Packs/Day Years Used Date Smoking Tobacco: Never Assessed Comments Unknown Sex and Gender Information Value Date Recorded Sex Assigned at Not on file 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
--- OUTSIDE RECORDS SUMMARY | 2025-02-13 13:33 | XMS_ITS | Encounter Summary ---
Author Organization [facility] Address [address] [place] [address] Care Team Providers Care Sanitation Worker Cleaning Equipment Name Role Phone Luís Márquez MD Primary Care Provider [phone] Encounter Details Date Type Department Care Team (Latest Contact Info) Description 08/02/2000 Outpatient Historical [facility] Endocrinology-Joo farrah Martinez [place] [address] [place] [address] Helena Abdul MD [address] [place], [place] [address] Other postablative hypothyroidism (Primary Dx); Disorder of bone and cartilage, unspecified Social History Tobacco Use Types Packs/Day Years Used Date Smoking Tobacco: Never Assessed Comments Unknown Sex and Gender Information Value Date Recorded Sex Assigned at Not on file 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
--- OUTSIDE RECORDS SUMMARY | 2025-02-13 13:33 | XMS_ITS | Encounter Summary ---
Author Organization [facility] Address [address] [place] [address] Care Team Providers Care Automotive Services Manager Name Role Phone Luís Márquez MD Primary Care Provider [phone] Encounter Details Date Type Department Care Team (Late st Contact Info) Description 08/13/2007 Outpatient Historical [facility] DEXA Scan Services-[facility] [address] [place] [address] Social History Tobacco Use Types Packs/Day Years Used Date Smoking Tobacco: Never Assessed Comments Unknown Sex and Gender Information Value Date Recorded Sex Assigned at Not on file 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
--- OUTSIDE RECORDS SUMMARY | 2025-02-13 13:33 | XMS_ITS | Encounter Summary ---
Author Organization [facility] Address [address] [place] [address] Care Team Providers Care Call Or Contact Centre Coach Name Role Phone Luís Márquez MD Primary Care Provider [phone] Encounter Details Date Type Department Care Team (Latest Contact Info) Description 04/20/1999 Outpatient Historical [facility] Yoseph Martinez [place] [address] [place] [address] Cecilia Jose MD NO ADDRESS ON FILE Personal history of malignant neoplasm of breast (Primary Dx) Social History Tobacco Use Types Packs/Day Years Used Date Smoking Tobacco: Never Assessed Comments Unknown Sex and Gender Information Value Date Recorded Sex Assigned at Not on file 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
--- OUTSIDE RECORDS SUMMARY | 2025-02-13 13:33 | XMS_ITS | Encounter Summary ---
Author Organization [facility] Address [address] [place] [address] Care Team Providers Care Drywall Carrier Name Role Phone Luís Márquez MD Primary Care Provider [phone] Encounter Details Date Type Department Care Team (Latest Contact Info) Description 04/27/1999 Outpatient Historical [facility] GENERAL [facility]ERY Jose M Jackson MD [address] [place] [address] Personal history of malignant neoplasm of breast (Primary Dx) Social History Tobacco Use Types Packs/Day Years Used Date Smoking Tobacco: Never Assessed Comments Unknown Sex and Gender Information Value Date Recorded Sex Assigned at Not on file 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
--- OUTSIDE RECORDS SUMMARY | 2025-02-13 13:33 | XMS_ITS | Encounter Summary ---
Author Organization [facility] Address [address] [place] [address] Care Team Providers Care Care Technician Name Role Phone Luís Márquez MD Primary Care Provider [phone] Encounter Details Date Type Department Care Team (Latest Contact Info) Description 05/07/2000 Outpatient [facility] Int 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 Gender Identity Not on file Sexual Orientation Not on file documented as of this encounter Plan of Treatment Not on file documented as of this encounter Visit Diagnoses Diagnosis Chronic rhinitis- Primary Dyspepsia and other specified disorders of function of stomach Osteoarthrosis, unspecified whether generalized or localized, unspecified site documented in this encounter Care Teams Care Technician Relationship Specialty Start Date End Date Luís Márquez MD 805 [facility] 1 [place] [address] PCP - General Family Practice 09/30/18 documented as of this encounter
--- OUTSIDE RECORDS SUMMARY | 2025-02-13 13:33 | XMS_ITS | Encounter Summary ---
Author Organization [facility] Address [address] [place] [address] Care Team Providers Care Personal Clothing Laundry Aide Name Role Phone Luís Márquez MD Primary Care Provider [phone] Encounter Details Date Type Department Care Team (Latest Contact Info) Description 06/21/1999 Outpatient Historical [facility] Endocrinology-Joo farrah Martinez [place] [address] [place] [address] Helena Abdul MD [address] [place], [place] [address] Other postablative hypothyroidism (Primary Dx) Social History Tobacco Use Types Packs/Day Years Used Date Smoking Tobacco: Never Assessed Comments Unknown Sex and Gender Information Value Date Recorded Sex Assigned at Not on file 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
--- OUTSIDE RECORDS SUMMARY | 2025-02-13 13:33 | XMS_ITS | Encounter Summary ---
Author Organization [facility] Address [address] [place] [address] Care Team Providers Care Poultry Debeaker Name Role Phone Luís Márquez MD Primary Care Provider [phone] Encounter Details Date Type Department Care Team (Latest Contact Info) Description 04/07/1998 Outpatient Historical [facility] GENER[facility] Jose M Jackson MD [address] [place] [address] Personal history of malignant neoplasm of breast (Primary Dx) Social History Tobacco Use Types Packs/Day Years Used Date Smoking Tobacco: Never Assessed Comments Unknown Sex and Gender Information Value Date Recorded Sex Assigned at Not on file 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
--- OUTSIDE RECORDS SUMMARY | 2025-02-13 13:33 | XMS_ITS | Encounter Summary ---
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) Social History Tobacco Use Types Packs/Day Years Used Date Smoking Tobacco: Never Assessed Comments Unknown Sex and Gender Information Value Date Recorded Sex Assigned at Not on file Legal Sex Female 6:35 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
--- OUTSIDE RECORDS SUMMARY | 2025-02-13 13:33 | XMS_ITS | Encounter Summary ---
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) Social History Tobacco Use Types Packs/Day Years Used Date Smoking Tobacco: Never Assessed Comments Unknown Sex and Gender Information Value Date Recorded Sex Assigned at Not on file 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
--- OUTSIDE RECORDS SUMMARY | 2025-02-13 13:33 | XMS_ITS | Encounter Summary ---
Author Organization [facility] Address [address] [place] [address] Care Team Providers Care Switchboard Wire Worker Helper Name Role Phone Luís Márquez MD Primary Care Provider [phone] Encounter Details Date Type Department Care Team (Latest Contact Info) Description 08/15/2005 Outpatient Historical [facility] Endocrinology-[facility] [place] [address] [place] [address] Moises Hidalgo MD NO ADDRESS ON FILE POSTABLAT HYPOTHYR NEC (Primary Dx); MENOPAUSAL DISORDER NOS Social History Tobacco Use Types Packs/Day Years Used Date Smoking Tobacco: Never Assessed Comments Unknown Sex and Gender Information Value Date Recorded Sex Assigned at Not on file Legal Sex Female 6:35 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 1 [place] [phone] PCP - General Family Practice 09/30/18 documented as of this encounter
--- OUTSIDE RECORDS SUMMARY | 2025-02-13 13:33 | XMS_ITS | Encounter Summary ---
Author Organization [facility] Address [address] [place] [address] Care Team Providers Care Supervisor Home Energy Consultant Name Role Phone Luís Márquez MD Primary Care Provider [phone] Encounter Details Date Type Department Care Team (Late st Contact Info) Description 08/02/2000 Outpatient Historical [facility] Helena Abdul MD [address] [place] [address] Other postablative hypothyroidism (Primary Dx) Social History Tobacco Use Types Packs/Day Years Used Date Smoking Tobacco: Never Assessed Comments Unknown Sex and Gender Information Value Date Recorded Sex Assigned at Not on file 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
--- OUTSIDE RECORDS SUMMARY | 2025-02-13 13:33 | XMS_ITS | Encounter Summary ---
Author Organization [facility] Address [address] [place] [address] Care Team Providers Care Product Development Carpenter Name Role Phone Luís Márquez MD Primary Care Provider [phone] Encounter Details Date Type Department Care Team (Latest Contact Info) Description 11/23/[address] [facility] Nuclear Med Services-[facility] [place] [address] [place] [address] Helena Abdul MD [address] [place], [place] [address] Nontoxic uninodular goiter (Primary Dx) Social History Tobacco Use Types Packs/Day Years Used Date Smoking Tobacco: Never Assessed Comments Unknown Sex and Gender Information Value Date Recorded Sex Assigned at Not on file Legal Sex Female 6:35 AM MANAGER SALT Gender Identity Not on file Sexual Orientation Not on file documented as of this encounter Plan of Treatment Not on file documented as of this encounter Visit Diagnoses Diagnosis Nontoxic uninodular goiter- Primary documented in this encounter Care Teams Product Development Carpenter Relationship Specialty Start Date End Date Luís Márquez MD 805 [facility] 1 [place] [address] PCP - General Family Practice 09/30/18 documented as of this encounter
--- OUTSIDE RECORDS SUMMARY | 2025-02-13 13:33 | XMS_ITS | Encounter Summary ---
Author Organization [facility] Address [address] [place] [address] Care Team Providers Care 3D Modeler Name Role Phone Luís Márquez MD Primary Care Provider [phone] Encounter Details Date Type Department Care Team (Latest Contact Info) Description 10/04/2004 Outpatient Historical [facility] DEXA Scan Services-[facility] [place] [address] [address] Guillermina Lomeli MD [address] 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
--- OUTSIDE RECORDS SUMMARY | 2025-02-13 13:33 | XMS_ITS | Clinical Summary ---
Author Organization [facility] [place] Address [address] [place] [address] Care Team Providers Care Stock Cutter Name Role Phone Luís Márquez MD Primary Care Provider [phone] Allergies Active Allergy Reactions Criticality Noted Date Comments Adhesive Tape Rash Low 08/11/2008 Atorvastatin Muscle Pain Low 08/11/2008 Codeine Other (See Comments) 08/11/2008 Erythromycin Nausea and Vomiting Low 08/11/2008 Losartan Hives High 07/10/2023 Meperidine Dizziness,Unknown Low 10/11/2021 Rehanflw-Sckhhiwuev-Eid ymyxin Rash Low 08/11/2008 Prednisone Other (See Comments) 10/03/2011 Chest pain went to ER Propoxyphene Nausea and Vomiting Low 08/11/2008 Tramadol Nausea and Vomiting Low 08/10/2009 Medications bimatoprost (LUMIGAN) 0.01 % solution 1 Drop daily at bedtime. 10/26/2015 Active vit C/E/Zn/coppr/lut ein/zeaxan (PRESERVISION AREDS 2 ORAL) Take by mouth. 10/26/2015 Active telmisartan (MICARDIS) 40 mg Tablet Take 40 mg by mouth daily. 12/13/2023 Active pantoprazole (PROTONIX) 40 mg Tablet, Delayed Release (E.C.) Take 40 mg by mouth daily. 04/02/2024 Active ezetimibe (ZETIA) 10 mg tablet Take 10 mg by mouth daily. 01/21/2024 Active isosorbide mononitrate (IMDUR) 60 mg Extended Release 24 hour tablet Take 60 mg by mouth daily in the morning. 01/14/2024 Active celecoxib (CeleBREX) 200 mg capsule Take 200 mg by mouth daily. 01/10/2024 Active aspirin (ECOTRIN EC) 81 mg Tablet, Delayed Release (E.C.) Take 81 mg by mouth daily. Active Vit C-Vit D-Hltfmg-EkKp-Zamzam tein (PRESERVISION) 226-90-0.8-5 mg Capsule Take 1 Capsule by mouth daily. Active psyllium (METAMUCIL) Packet Take 1 Packet by mouth 2 times daily. Active cetirizine (ZyrTEC) 10 mg tablet Take 10 mg by mouth 1 time daily as needed for Allergies. Active acetaminophen (TYLENOL) 500 mg tablet Take 1 Tablet (500 mg) by mouth every 6 hours as needed for Pain. 30 Tablet 04/25/2024 Active alendronate (FOSAMAX) 70 mg tablet Take 1 Tablet (70 mg) by mouth every 7 days. empty stomach before other meds,with 8oz of water, stay upright 30 min 12 Tablet 3 11/28/2024 Active levothyroxine 100 mcg tablet Take 1 Tablet (100 mcg) by mouth daily in the morning. 90 Tablet 3 11/28/2024 Active ergocalciferol (Vitamin D2) 50,000 unit capsule TAKE 1 CAPSULE EVERY 30 DAYS 3 Capsule 3 12/18/2024 Active Active Problems Problem Noted Date Diagnosed Date Endometrial thickening on ultrasound 04/25/2024 Tinnitus 05/24/2011 Meningioma 05/24/2011 BPPV (benign paroxysmal positional vertigo) 04/30 SNHL (sensorineural hearing loss) 05/24/2011 Vitamin D deficiency 08/11/2008 Hypothyroidism following radioiodine therapy Osteopenia 08/11/2008 Encounters Date Type Department Care Team Description 02/11/2025 External Device Data STL ABSTRACTION Provider, Abstract 02/11/2025 External Device Data STL ABSTRACTION Provider, Abstract 02/11/2025 External Device Data STL ABSTRACTION Provider, Abstract 02/10/2025 External Device Data STL ABSTRACTION Provider, Abstract 01/14/2025 External Device Data STL ABSTRACTION Provider, Abstract 01/13/2025 External Device Data STL ABSTRACTION Provider, Abstract 12/18/2024 External Device Data STL ABSTRACTION Provider, Abstract 12/17/2024 [facility] [address] [address] Ramakrishna Wallace MD 12/16/2024 External Device Data STL ABSTRACTION Provider, Abstract 11/28/2024 2:45 PM CDT Office Visit [facility] Endocrinology [facility] [address] [address] Ramakrishna Wallace MD Hypothyroidism following radioiodine therapy (Primary Dx); Osteopenia of both thighs; Vitamin D deficiency from Last 3 Months Immunizations Immunization Administration Dates Next Due (ADACEL/BOOSTRIX)(10 YR UP) TDAP VACCINE, 0.5ML, IM 10/06/2022 (PREVNAR 13)(6 WKS UP) PNEUM OCOCCAL CONJUGATE (PCV13) 0.5 ML, IM 09/27/2016 (SHINGRIX)(50 YRS UP) ZOSTER VACCINE RECOMBINANT, 0.5 ML, IM 07/08/2020 (SPIKEVAX) (12 YRS UP PRIMAR Y SERIES) COVID-19 VACCINE - [id number]-[id number](PF) 100 MCG/0.5 ML IM SUSP 11/03/2020,10/05/2020 Influenza Seasonal Unspecifi ed Formulation IM 05/04/2023,05/05/2022,05/06/2021,2020,04/29/2016 Influenza Vaccine High Dose 65+ Yrs IM 05/10/2015 Rabies Vaccine, Unspecified Formulation 10/06/2022 Zoster Vaccine Live SQ 09/27/2016 Family History Medical History Relation Name Comments Other Mother Breast Cancer Sister Relation Name Status Comments Mother Sister Social History Tobacco Use Types Packs/Day Years Used Date Smoking Tobacco: Never Smokeless Tobacco: Never Tobacco Cessation:Counseling Given: Yes Alcohol Use Standard Drinks/Week Comments Not Currently 0 (1 standard drink = 0.6 oz pur e alcohol) Comments No Sex and Gender Information Value Date Recorded Sex Assigned at Not on file 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 Gender Identity Not on file Sexual Orientation Not on file Last Filed Vital Signs Vital Sign Reading Time Taken Comments Blood Pressure 128/88 11/28/2024 2:18 PM CDT Pulse 78 04/25/2024 4:43 PM CDT Temperature 36 C (96.8 F) 04/25/2024 3:56 PM CDT Respiratory Rate 16 04/25/2024 4:43 PM CDT Oxygen Saturation 100% 04/25/2024 4:43 PM CDT Inhaled Oxygen Concentration - - Weight 85.7 kg (189 lb) 11/28/2024 2:18 PM CDT Height 154.9 cm (5' 1 ) 11/28/2024 2:18 PM CDT Body Mass Index 35.71 11/28/2024 2:18 PM CDT Plan of Treatment Upcoming Encounters Date Type Department Care Team (Late st Contact Info) Description 11/30/2025 2:30 PM CDT Office Visit [facility] End[facility] [address] [place] [address] Ramakrishna Wallace MD [address] [place] [address] Health Maintenance Due Date Last Done Comments RSV VACCINE (60+ or ) (1 - 1-dose 75+ series) 2016 PNEUMOCOCCAL VACCINE 50+ YEA RS (2 of 2 - PPSV23) 09/27/2017 09/27/2016 ZOSTER VACCINE (3 of 3) 09/02/2020 07/08/2020, 09/27 COVID-19 Vaccine (6 - 2023-2 5 season) 2024 09/19/2023, 05/10/2022, 07/19/2021, Additional history exists INFLUENZA VACCINE (#1) 2025 3, 05/05/2022, 05/06/2021, Additional history exists OSTEOPOROSIS SCREENING 12/15/2027 3, 11/23/2020, 11/23/2020, Additional history exists DTAP/TDAP/TD VACCINES (2 - T d or Tdap) 10/06/2032 10/06/2022 COLORECTAL SCREENING Discontinued 10/09/2013 Colorectal Cancer Screening Discontinued FIT-DNA Q 3 years Discontinued FIT/FOBT Q 1 year Discontinued Flex Sig/CT Colonography Q 5 years Discontinued Procedures Procedure Name Priority Date/Time Associated Diagnosis Comments XR DEXA BONE DENSITY AXIAL 1 OR MORE SITES Routine 12/14/2022 3:06 PM CDT Osteopenia of both thighs from Last 3 Months or Most Recently Relevant to Health Maintenance Results * XR DEXA BONE DENSITY AXIAL 1 OR MORE SITES (12/14/2022 3:06 PM CDT) Anatomical Region Laterality Modality Nuclear Medicine 12/14/2022 3:06 PM CDT Impressions 12/15/2022 6:54 AM CDT IMPRESSION: 1. Findings consistent with osteopenia with site of lowest density at the femoral neck. 2. Age matched Z-score of greater than -2.0 is within expected range for age and does not indicate accelerated bone demineralization. Definitions: T-score > -0.99 = Normal T-score -1.00 to -2.49 = Osteopenia T-score < -2.50 = Osteoporosis Z-score >-2.0 = Normal Z-score <-2.0 = Low bone density for chronologic age RECOMMENDATIONS: Follow up 1 year after starting or changing therapy recommended. NOF guidelines recommend consideration of FDA-approved medical therapies in patients with FRAX determined 10-year probabilities of hip/major osteoporosis-related fractures equal or greater than 3%/20% respectively. Consider assessing fracture risk using the FRAX analysis tool for guidance of clinical management available online at www.shef.ac.uk/FRAX/. Enter [employer] for Select DXA and the Femoral Neck BMD value. Narrative 12/15/2022 6:54 AM CDT Exam: XR DEXA BONE DENSITY AXIAL 1 OR MORE SITES Reason For Exam: See Diagnosis, osteoporosis screening. Diagnosis: Osteopenia of both thighs; Osteopenia of both thighs Findings: The following absorptiometry data were obtained. The quality of this examination is acceptable with regards to count density, processed images, data display and lack of important artifacts (including but not limited to motion and attenuation artifacts). COMPARISON: 11/23/2020 L1-L4 BMD (g/cm2): 0.974 (Previously 1.021) Adult T-score: -1.7 (Previously -1.3) Adult Z-score: Normal (Previously normal) Left Femoral Neck BMD (g/cm2): 0.743 (Previously 0.804) Adult T-score: -2.1 (Previously -1.7) Adult Z-score: Normal (Previously normal) Left Total Femur BMD (g/cm2): 0.873 (Previously 0.886) Adult T-score: -1.1 (Previously -1.0) Adult Z-score: Normal (Previously normal) (PLEASE NOTE: IF BILATERAL FEMUR EVALUATION WAS PERFORMED, ONLY THE SIDE WITH LOWEST T-SCORE IS REPORTED) Procedure Note Artemio Richardson MD - 12/15/2022 Exam: XR DEXA BONE DENSITY AXIAL 1 OR MORE SITES Reason For Exam: See Diagnosis, osteoporosis screening. Diagnosis: Osteopenia of both thighs; Osteopenia of both thighs Findings: The following absorptiometry data were obtained. The quality of this examination is acceptable with regards to count density, processed images, data display and lack of important artifacts (including but not limited to motion and attenuation artifacts). COMPARISON: 11/23/2020 L1-L4 BMD (g/cm2): 0.974 (Previously 1.021) Adult T-score: -1.7 (Previously -1.3) Adult Z-score: Normal (Previously normal) Left Femoral Neck BMD (g/cm2): 0.743 (Previously 0.804) Adult T-score: -2.1 (Previously -1.7) Adult Z-score: Normal (Previously normal) Left Total Femur BMD (g/cm2): 0.873 (Previously 0.886) Adult T-score: -1.1 (Previously -1.0) Adult Z-score: Normal (Previously normal) (PLEASE NOTE: IF BILATERAL FEMUR EVALUATION WAS PERFORMED, ONLY THE SIDE WITH LOWEST T-SCORE IS REPORTED) IMPRESSION: 1. Findings consistent with osteopenia with site of lowest density at the femoral neck. 2. Age matched Z-score of greater than -2.0 is within expected range for age and does not indicate accelerated bone demineralization. Definitions: T-score > -0.99 = Normal T-score -1.00 to -2.49 = Osteopenia T-score < -2.50 = Osteoporosis Z-score >-2.0 = Normal Z-score <-2.0 = Low bone density for chronologic age RECOMMENDATIONS: Follow up 1 year after starting or changing therapy recommended. NOF guidelines recommend consideration of FDA-approved medical therapies in patients with FRAX determined 10-year probabilities of hip/major osteoporosis-related fractures equal or greater than 3%/20% respectively. Consider assessing fracture risk using the FRAX analysis tool for guidance of clinical management available online at www.shef.ac.uk/FRAX/. Enter [employer]iana for Select DXA and the Femoral Neck BMD value. us Ramakrishna Wallace MD DIAGNOSTIC IMAGING ORDERABLES Final Result from Last 3 Months or Most Recently Relevant to Health Maintenance [place] [place] [address] [employer] [facility] Address: [facility] [address] [place] [address] [facility] RX [employer] (INTERNAL) [facility] Internal Plans Advance Directives For more information, please contact: [phone] * Full Code (Latest Code Status on File) Date Activated Date Inactivated Comments 04/25/2024 10:08 AM 04/25/2024 8:36 PM Care Teams Stock Cutter Relationship Specialty Start Date End Date Luís Márquez MD 5 [facility] 1 [place] [address] PCP - General Family Practice 09/30/18
--- OUTSIDE RECORDS SUMMARY | 2025-02-13 13:33 | XMS_ITS | Encounter Summary ---
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) Social History Tobacco Use Types Packs/Day Years Used Date Smoking Tobacco: Never Assessed Comments Unknown Sex and Gender Information Value Date Recorded Sex Assigned at Not on file 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
--- OUTSIDE RECORDS SUMMARY | 2025-02-13 13:33 | XMS_ITS | Encounter Summary ---
Author Organization [facility] Address 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 Gender Identity Not on file Sexual Orientation Not on file documented as of this encounter Plan of Treatment Upcoming Encounters Date Type Department Care Team (Late st Contact Info) Description 11/30/2025 2:30 PM CDT Office Visit [facility] [address] [facility] [address] [place] [address] Ramakrishna Wallace MD [address] [address] documented as of this encounter Visit Diagnoses Not on filedocumented in this encounter Care Teams Salesperson Pianos And Organs Relationship Specialty Start Date End Date Luís Márquez MD [address] [phone] PCP - General Family Practice 09/30/18 documented as of this encounter
--- OUTSIDE RECORDS SUMMARY | 2025-02-13 13:33 | XMS_ITS | Encounter Summary ---
Author Organization [facility] Address 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 Gender Identity Not on file Sexual Orientation Not on file documented as of this encounter Plan of Treatment Upcoming Encounters Date Type Department Care Team (Late st Contact Info) Description 11/30/2025 2:30 PM CDT Office Visit [facility] [address] [facility] [address] [place] [address] Ramakrishna Wallace MD [address] [address] documented as of this encounter Visit Diagnoses Not on filedocumented in this encounter Care Teams Regional Agronomist Relationship Specialty Start Date End Date Luís Márquez MD [address] [phone] PCP - General Family Practice 09/30/18 documented as of this encounter
--- OUTSIDE RECORDS SUMMARY | 2025-02-13 13:34 | XMS_ITS | Encounter Summary ---
Author Organization [facility] Address [address] [place] [address] Care Team Providers Care Outsewer Name Role Phone Luís Márquez MD Primary Care Provider [phone] Encounter Details Date Type Department Care Team (Latest Contact Info) Description 10/12/1999 Outpatient Historical [facility] Endocrinology-[facility] farrah Martinez Amador [address] [place] [address] Helena Abdul MD [address] [place], [place] [address] Other postablative hypothyroidism (Primary Dx) Social History Tobacco Use Types Packs/Day Years Used Date Smoking Tobacco: Never Assessed Comments Unknown Sex and Gender Information Value Date Recorded Sex Assigned at Not on file 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
--- OUTSIDE RECORDS SUMMARY | 2025-02-13 13:34 | XMS_ITS | Encounter Summary ---
Author Organization [facility] Address [address] [place] [address] Care Team Providers Care Tripe Cooker Name Role Phone Luís Márquez MD Primary Care Provider [phone] Encounter Details Date Type Department Care Team (Late st Contact Info) Description 02/11/2001 Outpatient Historical [facility] Helena Abdul MD [address] [place] [address] Postsurgical hypothyroidism (Primary Dx) Social History Tobacco Use Types Packs/Day Years Used Date Smoking Tobacco: Never Assessed Comments Unknown Sex and Gender Information Value Date Recorded Sex Assigned at Not on file 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
--- OUTSIDE RECORDS SUMMARY | 2025-02-13 13:34 | XMS_ITS | Encounter Summary ---
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
--- OUTSIDE RECORDS SUMMARY | 2025-02-13 13:34 | XMS_ITS | Encounter Summary ---
Author Organization [facility] Address [address] [place] [address] Care Team Providers Care Film Touch Up Inspector Name Role Phone Luís Márquez MD Primary Care Provider [phone] Encounter Details Date Type Department Care Team (Latest Contact Info) Description 08/12/2002 Outpatient Historical [facility] Endocrinology-[facility] [address] [place] [address] Helena Abdul MD [address] [place], [place] [address] POSTABLAT HYPOTHYR NEC (Primary Dx); OSTEOPOROSIS NOS Social History Tobacco Use Types Packs/Day Years Used Date Smoking Tobacco: Never Assessed Comments Unknown Sex and Gender Information Value Date Recorded Sex Assigned at Not on file 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
--- OUTSIDE RECORDS SUMMARY | 2025-02-13 13:34 | XMS_ITS | Encounter Summary ---
Author Organization [facility] Address [address] [place] [address] Care Team Providers Care Nike Athlete Name Role Phone Luís Márquez MD Primary Care Provider [phone] Encounter Details Date Type Department Care Team (Latest Contact Info) Description 08/12/2001 Outpatient Historical [facility] Endocrinology-[facility] [address] [place] [address] Helena Abdul MD [address] [place] [address] POSTABLAT HYPOTHYR NEC (Primary Dx) Social History Tobacco Use Types Packs/Day Years Used Date Smoking Tobacco: Never Assessed Comments Unknown Sex and Gender Information Value Date Recorded Sex Assigned at Not on file 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
--- OUTSIDE RECORDS SUMMARY | 2025-02-13 13:34 | XMS_ITS | Encounter Summary ---
Author Organization [facility] Address [address] [place] [address] Care Team Providers Care Greenhouse Manager Name Role Phone Luís Márquez MD Primary Care Provider [phone] Encounter Details Date Type Department Care Team (Latest Contact Info) Description 04/05/2000 Outpatient Historical [facility] Endocrinology-Joo farrah Martinez Owen [address] [place] [address] Helena Abdul MD [address] [place], [place] [address] Other postablative hypothyroidism (Primary Dx) Social History Tobacco Use Types Packs/Day Years Used Date Smoking Tobacco: Never Assessed Comments Unknown Sex and Gender Information Value Date Recorded Sex Assigned at Not on file 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
--- OUTSIDE RECORDS SUMMARY | 2025-02-13 13:34 | XMS_ITS | Encounter Summary ---
Author Organization [facility] Address [address] [place] [address] Care Team Providers Care Weight Clerk Name Role Phone Luís Márquez MD Primary Care Provider [phone] Encounter Details Date Type Department Care Team (Late st Contact Info) Description 12/07/1999 Outpatient Historical [facility] Helena Abdul MD [address] [place] [address] Unspecified hypothyroidism (Primary Dx) Social History Tobacco Use Types Packs/Day Years Used Date Smoking Tobacco: Never Assessed Comments Unknown Sex and Gender Information Value Date Recorded Sex Assigned at Not on file 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
--- OUTSIDE RECORDS SUMMARY | 2025-02-13 13:34 | XMS_ITS | Data Portability ---
Author Organization DELFINO Rodriguezton [facility], [facility] Address [address] [facility] [address] [place] [address] Care Team Providers Care Internet Sales Manager Name Role Phone CHARLOTTE MÁRQUEZ Primary Care Provider Assessment Encounter Date Assessment Date Assessment LastModified by Organization Details LastModified Time 12/09/2024 12/09/2024 it appears she is not filling her medication consistently. i asked her daughter to bring the bottles and pill boxes in. we discussed consistent diet. [email or web address] Not available 12/09/2024 08:42:43 01/08/2025 01/08/2025 her edema increased after traveling to [place] and sitting with her legs down and being up walking all day. she was eating out fast food that day ([employer] again). home bp's are very well controlled 103 to 130 sys young upper 50s to 60's she drinks 1 24 ounce water mug per day. she also drinks some tea will follow a 1500 ml fluid restriction. I spent greater than 40mins in counseling and answering questions on chest pain. all questions were answered to the patient's satisfaction. the patient was given the opportunity to ask additional questions and acknowledged he had no additional questions at this time and will call if any questions arise. [email or web address] Not available 01/08/2025 08:56:46 Plan of Treatment Reminders Order Date Submit Date Provider Last Modified By Organization Details Last Modified Time Details Appointments None recorded. Lab CMP, serum or plasma 2024 025 NATHAN [facility], [address], [facility] 1, [place], [address], 15:32:30 CBC 2024 025 [place] [facility], [address] [facility] [address], [address], 15:32:42 BNP (B-type natriuretic peptide), serum or plasma 2024 025 [email or web address] 5 [facility], [address] [place] [address], [address], [place], [address], 5 08:51:00 TSH, serum or plasma 2024 025 [email or web address] 5 [facility], [address] [place] [address], [address], [place], [address], 5 08:51:07 troponin I, serum or plasma 2024 025 [place] [facility], [address] [place] [address], [address], [place], [address], 5 14:56:10 sodium, urine 2024 025 [email or web address] [facility] ([facility]), [address] [place] [address], [address], 5 08:44:39 fecal occult blood, immunoassay , stool 2024 025 [facility] ([facility]), [address] [place], [address], 5 09:51:06 sodium, blood 2024 025 [email or web address]), [address] [place] [address], [address], 5 10:09:02 CBC w/ auto diff 2024 025 [email or web address] [facility], [address], [address], [place], [address], 08:06:59 BNP (B-type natriuretic peptide), serum or plasma 2024 025 [place] [address] [facility], [address], [address], [place], [address], 08:06:59 CMP, serum or plasma 2024 025 [facility], [address], [address], [place], [address], 17:42:13 Referral None recorded. Procedures None recorded. Surgeries None recorded. Imaging electrocard iogram, routine ECG, 12 leads min 2024 025 [facility] ([facility]), [address] [place], [address], 5 12:23:18 electrocard iogram, routine ECG, 12 leads min 2024 025 [email or web address] 2 [facility] ([facility]), [address] [place], [address], 5 15:38:54 XR, chest, 2 view 2024 [email or web address] 5 [facility] ([facility]), [address] [place], [address], 13:51:34 US, echocardiog aren, transthorac ic, complete, w/ color flow - urgent new onset chf 2024 025 [facility], [address] [facility], [place], [address], 5 09:05:12 XR, chest, 2 view 2024 025 [email or web address] 5 [facility] ([facility]), [address] [place], [address], 5 13:54:37 electrocard iogram 2024 025 [email or web address] [facility] ([facility]), [address] [place], [address], 5 09:05:17 Medication Orders furosemide 40 mg tablet 2024 025 [id number], [address], [place], [place], [id number], 13:19:07 potassium chloride ER 10 mEq tablet,exte nded release 2024 025 [facility] #[id number], [address], [place], [place], [id number], 13:19:07 ezetimibe 10 mg tablet 2024 025 [email or web address], [address] [place] [address], [address], 08:30:32 telmisartan 40 mg tablet 2024 025 [email or web address], [address] [place] [address], [address], 08:30:32 Patient TargetsNo targets recorded. Patient Instructions Encounter Date Encounter Id Patient Instructions Last Modified By Organization Details Last Modified Time 02/06/2025 [id number] electrocardiogra m interpretation* [email or web address] Not available 02/09/2025 15:38:29 Reason for Referral None Reported. Results Created Date Observation Date Name Description Value Unit Range Abnormal Flag Note LastModifiedBy Organization Detail LastModifiedTime 12/10/19 25 12/09/2024 CBC WBC 8.9 x10 4.0-10 .5 Not Available [facility] [address], [place], [address], 12/09/2024 17:04:47 12/10/1912/09/2024 CBC RBC 4.40 x10 3.50-5 .50 Not Available [facility] [address] [facility] [address] [facility] 1, [place], [address], 12/09/2024 17:04:47 12/10/1912/09/2024 CBC HGB 13.5 g/dL 12.0-1 6.0 Not Available [facility] [address] [facility] [address] [facility] 1, [place], [address], 12/09/2024 17:04:47 12/10/1912/09/2024 CBC HCT 41.2 % 37.0-4 7.0 Not Available [facility] [address] [facility] [address] [facility] 1, [place], [address], 12/09/2024 17:04:47 12/10/1912/09/2024 CBC MCV 93.7 fL 80.0-9 9.9 Not Available [facility] [address] [facility] [address] [facility] 1, [place], [address], 12/09/2024 17:04:47 12/10/1912/09/2024 CBC MCH 30.6 pg 27.0-3 2.0 Not Available [facility] [address] [facility] [address], [place], [address], 12/09/2024 17:04:47 12/10/1912/09/2024 CBC MCHC 32.7 g/dL 32.0-3 6.0 Not Available [facility] [address] [facility] [address] [facility] 1, [place], [address], 12/09/2024 17:04:47 12/10/1921 1212/09/2024 CBC RDW 14.1 % 11.5-1 4.5 Not Available [facility] [address] [facility] 1, [place], [address], 12/09/2024 17:04:47 12/10/19 25 12/09/2024 CBC plt 185.4 x10 140.0- 451.0 Not Available [facility] [address] [facility] 1, [place], [address], 12/09/2024 17:04:47 12/10/19 25 12/09/2024 CBC lymphocytes % 16.7 % 20.0-5 0.0 low Not Available [facility] [address] [facility] 1, [place], [address], 12/09/2024 17:04:47 12/10/19 25 12/09/2024 CBC granulcytes % 72.0 % 30.0-7 0.0 high Not Available [facility] [address] [facility] 1, [place], [address], 12/09/2024 17:04:47 12/10/19 25 12/09/2024 CBC monocytes % 9.7 % 2.0-16 .0 Not Available [facility] [address] [facility] 1, [place], [address], 12/09/2024 17:04:47 12/10/19 25 12/09/2024 CBC granulcytes# 6.4 x10 Not Arin ilable [facility] [address] [facility] 1, [place], [address], 12/09/2024 17:04:47 12/10/19 25 12/09/2024 CBC lymphocytes # 1.5 x10 Not Available [facility] [address] [facility] 1, [place], [address], 12/09/2024 17:04:47 12/10/19 25 12/09/2024 CBC monocytes # 0.9 x10 Not Avai lable [facility] [address] [facility] 1, [place], [address], 12/09/2024 17:04:47 12/10/19 25 12/09/2024 CMP (FEMA LE) glucose 105.0 mg/dL 60.0-9 9.0 high Not Available [facility] [address] [facility] 1, [place], [address], 12/09/2024 17:42:13 12/10/19 25 12/09/2024 CMP (FEMA LE) BUN (blood urea nitrogen) 10.0 mg/dL 10.0-2 6.0 Not Available [facility] [address] [address], [place], [address], 12/09/2024 17:42:13 12/10/19 25 12/09/2024 CMP (FEMA LE) creatinine (serum) 0.6 mg/dL 0.4-1. 5 Not Available [facility] [address] [address], [place], [address], 12/09/2024 17:42:13 12/10/19 25 12/09/2024 CMP (FEMA LE) BUN/creatini ne ratio 16.67 ratio Not Available [facility] [address] [address], [place], [address], 12/09/2024 17:42:13 12/10/19 25 12/09/2024 CMP (FEMA LE) eGFR calculated 101.7 Not Available [facility] [address] [address], [place], [address], 12/09/2024 17:42:13 12/10/19 25 12/09/2024 CMP (FEMA LE) total protein 7.6 g/dL 6.0-8. 5 Not Available [facility] [address] [facility] 1, [place], [address], 12/09/2024 17:42:13 12/10/19 25 12/09/2024 CMP (FEMA LE) total bilirubin 0.6 mg/dL 0.2-1. 3 Not Available [facility] [address] [facility] 1, [place], [address], 12/09/2024 17:42:13 12/10/19 25 12/09/2024 CMP (FEMA LE) albumin 4.3 g/dL 3.5-5. 5 Not Available [facility] [address] [facility] 1, [place], [address], 12/09/2024 17:42:13 12/10/19 25 12/09/2024 CMP (FEMA LE) globulin 3.3 calc Not Available [facility] [address] [facility] 1, [place], [address], 12/09/2024 17:42:13 12/10/19 25 12/09/2024 CMP (FEMA LE) AST (SGOT) 23.0 U/L 0.0-46 .0 Not Available [facility] [address] [facility] [address], [place], [address], 12/09/2024 17:42:13 12/10/19 25 12/09/2024 CMP (FEMA LE) altv (SGPT) 20.0 U/L 13.0-6 9.0 normal Not Available [facility] [address] [facility] [address], [place], [address], 12/09/2024 17:42:13 12/10/19 25 12/09/2024 CMP (FEMA LE) A/G ratio 1.3 ratio Not Available [facility] [address] [facility] 1, [place], [address], 12/09/2024 17:42:13 12/10/19 25 12/09/2024 CMP (FEMA LE) ALP phos 87.0 U/L 30.0-1 40.0 normal Not Available [facility] [address] [facility] [address], [place], [address], 12/09/2024 17:42:13 12/10/19 25 12/09/2024 CMP (FEMA LE) calcium 9.1 mg/dL 8.4-10 .5 Not Available [facility] [address] [facility] [address], [place], [address], 12/09/2024 17:42:13 12/10/19 25 12/09/2024 CMP (FEMA LE) sodium 129.0 mmol/ L 136.0- 145.0 low Not Available [facility] [address] [facility] [address], [place], [address], 12/09/2024 17:42:13 12/10/19 25 12/09/2024 CMP (FEMA LE) potassium 3.9 mmol/ L 3.5-5. 1 Not Available [facility] [address] [facility] [address], [place], [address], 12/09/2024 17:42:13 12/10/19 25 12/09/2024 CMP (FEMA LE) chloride 99.0 mmol/ L 98.0-1 10.0 normal Not Available [facility] [address] [facility] [address], [place], [address], 12/09/2024 17:42:13 12/10/19 25 12/09/2024 CMP (FEMA LE) C02 21.0 mmol/ L 22.0-3 1.0 low Not Available [facility] [address] [facility] [address], [place], [address], 12/09/2024 17:42:13 12/10/19 25 12/09/2024 CMP (FEMA LE) anion gap 9.0 calc Not Available [facility] [address] [facility] [address], [place], [address], 12/09/2024 17:42:13 12/10/19 25 12/09/2024 CMP (FEMA LE) osmolality 266.6 calc Not Available [facility] [address] [facility] [address], [place], [address], 12/09/2024 17:42:13 12/10/19 25 12/12/2024 B TYPE NATRI URETI C PEPTI DE (BNP) B type natriuretic peptide (BNP) 51 pg/mL <100 normal BNP level s incre ase with age in the gener al popul ation with the highe st value s seen in indiv idual s great er than 75 years of age. Refer ence: J. Am. Marie. Cardi ol. 2002; 40:97 6-982 . Not Available [facility] [address], [address], 12/12/2024 07:02:26 01/02/20 25 01/01/2025 sodiu m, blood sodium 130 mmol/ L 136-14 5 Not Available [facility] ([facility]) [address] [place], [address], 01/01/2025 10:08:09 01/10/20 25 01/10/2025 SODIU M WITH CREAT ININE , RANDO M URINE sodium/creat ratio 214 mmol/ g_cre at 28-280 normal Not Available [facility] [address], [address], 01/10/2025 12:27:13 01/10/20 25 01/10/2025 SODIU M WITH CREAT ININE , RANDO M URINE sodium, random urine 94 mmol/ L 28-272 normal Not Available [facility] [address] [place], [address], 01/10/2025 12:27:13 01/10/20 25 01/10/2025 SODIU M WITH CREAT ININE , USHA Mendoza URINE creatinine, random urine 44 mg/dL 20-275 normal Not Available [facility] [address] [place], [address], 01/10/2025 12:27:13 01/10/20 25 01/09/2025 fecal occul t blood , immun oassa y, stool iFOB negati ve Not Available [facility] ([facility]) [address] [place], [address], 01/08/2025 08:39:31 02/07/20 25 02/06/2025 CMP (FEMA LE) glucose 152.0 mg/dL 60.0-9 9.0 high Not Available [facility] [address], [address], 02/06/2025 15:32:30 02/07/20 25 02/06/2025 CMP (FEMA LE) BUN (blood urea nitrogen) 6.0 mg/dL 10.0-2 6.0 low Not Available [facility] [address], [address], 02/06/2025 15:32:30 02/07/20 25 02/06/2025 CMP (FEMA LE) creatinine (serum) 0.5 mg/dL 0.4-1. 5 Not Available [facility] [address], [address], 02/06/2025 15:32:30 02/07/20 25 02/06/2025 CMP (FEMA LE) BUN/creatini ne ratio 12.00 ratio Not Available [facility] [address], [address], 02/06/2025 15:32:30 02/07/20 25 02/06/2025 CMP (FEMA LE) eGFR calculated 125.2 Not Available [facility] [address] [facility] [address], [place], [address], 02/06/2025 15:32:30 02/07/20 25 02/06/2025 CMP (FEMA LE) total protein 7.8 g/dL 6.0-8. 5 Not Available [facility] [address] [facility] [address], [place], [address], 02/06/2025 15:32:30 02/07/20 25 02/06/2025 CMP (FEMA LE) total bilirubin 0.7 mg/dL 0.2-1. 3 Not Available [facility] [address] [facility] [address], [place], [address], 02/06/2025 15:32:30 02/07/20 25 02/06/2025 CMP (FEMA LE) albumin 4.4 g/dL 3.5-5. 5 Not Available [facility] [address] [facility] [address], [place], [address], 02/06/2025 15:32:30 02/07/20 25 02/06/2025 CMP (FEMA LE) globulin 3.4 calc Not Available [facility] [address] [facility] [address], [place], [address], 02/06/2025 15:32:30 02/07/20 25 02/06/2025 CMP (FEMA LE) AST (SGOT) 24.0 U/L 0.0-46 .0 Not Available [facility] [address] [facility] [address], [place], [address], 02/06/2025 15:32:30 02/07/20 25 02/06/2025 CMP (FEMA LE) altv (SGPT) 21.0 U/L 13.0-6 9.0 normal Not Available [facility] [address] [facility] [address], [place], [address], 02/06/2025 15:32:30 02/07/20 25 02/06/2025 CMP (FEMA LE) A/G ratio 1.3 ratio Not Available [facility] [address] [facility] [address], [place], [address], 02/06/2025 15:32:30 02/07/20 25 02/06/2025 CMP (FEMA LE) ALP phos 104.0 U/L 30.0-1 40.0 normal Not Available [facility] [address] [facility] [address], [place], [address], 02/06/2025 15:32:30 02/07/20 25 02/06/2025 CMP (FEMA LE) calcium 9.5 mg/dL 8.4-10 .5 Not Available [facility] [address] [facility] [address], [place], [address], 02/06/2025 15:32:30 02/07/20 25 02/06/2025 CMP (FEMA LE) sodium 130.0 mmol/ L 136.0- 145.0 low Not Available [facility] [address] [facility] [address], [place], [address], 02/06/2025 15:32:30 02/07/20 25 02/06/2025 CMP (FEMA LE) potassium 3.7 mmol/ L 3.5-5. 1 Not Available [facility] [address] [facility] [address], [place], [address], 02/06/2025 15:32:30 02/07/20 25 02/06/2025 CMP (FEMA LE) chloride 96.0 mmol/ L 98.0-1 10.0 abnormal Not Available [facility] [address] [facility] 1, [place], [address], 02/06/2025 15:32:30 02/07/20 25 02/06/2025 CMP (FEMA LE) C02 23.0 mmol/ L 22.0-3 1.0 Not Available [facility] [address] [facility] [address] [facility] 1, [place], [address], 02/06/2025 15:32:30 02/07/20 25 02/06/2025 CMP (FEMA LE) anion gap 11.0 calc Not Available [facility] [address] [facility] [address] [facility] 1, [place], [address], 02/06/2025 15:32:30 02/07/20 25 02/06/2025 CMP (FEMA LE) osmolality 269.6 calc Not Available [facility] [address] [facility] [address] [facility] 1, [place], [address], 02/06/2025 15:32:30 02/07/20 25 02/06/2025 CBC WBC 7.4 x10 4.0-10 .5 Not Available [facility] [address] [facility] [address] [facility] 1, [place], [address], 02/06/2025 15:32:42 02/07/20 25 02/06/2025 CBC RBC 4.27 x10 3.50-5 .50 Not Available [facility] [address] [facility] [address] [facility] 1, [place], [address], 02/06/2025 15:32:42 02/07/20 25 02/06/2025 CBC HGB 12.8 g/dL 12.0-1 6.0 Not Available [facility] [address] [facility] [address] [facility] 1, [place], [address], 02/06/2025 15:32:42 02/07/20 25 02/06/2025 CBC HCT 39.5 % 37.0-4 7.0 Not Available [facility] [address] [facility] 1, [place], [address], 02/06/2025 15:32:42 02/07/20 25 02/06/2025 CBC MCV 92.4 fL 80.0-9 9.9 Not Available [facility] [address] [facility] [address] [facility] 1, [place], [address], 02/06/2025 15:32:42 02/07/20 25 02/06/2025 CBC MCH 29.9 pg 27.0-3 2.0 Not Available [facility] [address] [facility] 1, [place], [address], 02/06/2025 15:32:42 02/07/20 25 02/06/2025 CBC MCHC 32.3 g/dL 32.0-3 6.0 Not Available [facility] [address] [facility] [address] [facility] 1, [place], [address], 02/06/2025 15:32:42 02/07/20 25 02/06/2025 CBC RDW 14.4 % 11.5-1 4.5 Not Available [facility] [address] [facility] 1, [place], [address], 02/06/2025 15:32:42 02/07/20 25 02/06/2025 CBC plt 182.9 x10 140.0- 451.0 Not Available [facility] [address] [facility] [address] [facility] 1, [place], [address], 02/06/2025 15:32:42 02/07/20 25 02/06/2025 CBC lymphocytes % 9.5 % 20.0-5 0.0 low Not Available [facility] [address] [facility] [facility] 1, [place], [address], 02/06/2025 15:32:42 02/07/20 25 02/06/2025 CBC granulcytes % 87.4 % 30.0-7 0.0 high Not Available [facility] [address] [facility] 1, [place], [address], 02/06/2025 15:32:42 02/07/20 25 02/06/2025 CBC monocytes % 2.6 % 2.0-16 .0 Not Available [facility] [address] [facility], [place], [address], 02/06/2025 15:32:42 02/07/20 25 02/06/2025 CBC granulcytes# 6.5 x10 Not Arin ilable [facility] [address] [address], [place], [address], 02/06/2025 15:32:42 02/07/20 25 02/06/2025 CBC lymphocytes # 0.7 x10 Not Available [facility] [address] [address], [place], [address], 02/06/2025 15:32:42 02/07/20 25 02/06/2025 CBC monocytes # 0.2 x10 Not Avai lable [facility] [address] [address], [place], [address], 02/06/2025 15:32:42 02/07/20 25 02/06/2025 TSH TSH 1.69 uIU/m L 0.49-3 .82 Not Available [facility] [address] [address], [place], [address], 02/06/2025 15:33:41 02/07/20 25 02/09/2025 B TYPE NATRI URETI C PEPTI DE (BNP) B type natriuretic peptide (BNP) 141 pg/mL <100 high BNP level s incre ase with age in the gener al popul ation with the highe st value s seen in indiv idual s great er than 75 years of age. Refer ence: J. Am. Marie. Cardi ol. 2002; 40:97 6-982 . Not Available [facility] [address] [place], [address], 02/09/2025 14:56:10 02/07/20 25 02/09/2025 TROPO IJEOMA I, HIGH SENSI TIVIT Y troponin I, high sensitivity 4 NG/L < or = 47 normal In accor d with publi shed recom menda tions , seria l testi ng of tropo ijeoma I at inter vals of 2 to 4 hours for up to 12 to 24 hours is sugge sted in order to myra borat e a singl e tropo ijeoma I resul t. An eleva brigitte tropo ijeoma alone is not suffi cient to make the diagn osis of [place]. Not Available [facility] [address] [place], [address], 02/09/2025 14:56:10 02/10/20 25 02/09/2025 BMP (FEMA LE) glucose 182.0 mg/dL 60.0-9 9.0 high Not Available [facility] [address] [facility] 1, [place], [address], 02/09/2025 11:21:28 02/10/20 25 02/09/2025 BMP (FEMA LE) BUN (blood urea nitrogen) 15.0 mg/dL 10.0-2 6.0 Not Available [facility] [address] [facility] [address], [place], [address], 02/09/2025 11:21:28 02/10/20 25 02/09/2025 BMP (FEMA LE) creatinine (serum) 0.6 mg/dL 0.4-1. 5 Not Available [facility] [address] [facility] 1, [place], [address], 02/09/2025 11:21:28 02/10/20 25 02/09/2025 BMP (FEMA LE) BUN/creatini ne ratio 25.00 ratio Not Available [facility] [address] [facility] 1, [place], [address], 02/09/2025 11:21:28 02/10/20 25 02/09/2025 BMP (FEMA LE) calcium 8.8 mg/dL 8.4-10 .5 Not Available [facility] [facility] 1, [place], [address], 02/09/2025 11:21:28 02/10/20 25 02/09/2025 BMP (FEMA LE) sodium 127.0 mmol/ L 136.0- 145.0 low Not Available [facility] [address] [facility] Melani [facility] 1, [place], [address], 02/09/2025 11:21:28 02/10/20 25 02/09/2025 BMP (FEMA LE) potassium 3.6 mmol/ L 3.5-5. 1 Not Available [facility] [address] [facility] Melani [facility] 1, [place], [address], 02/09/2025 11:21:28 02/10/20 25 02/09/2025 BMP (FEMA LE) chloride 95.0 mmol/ L 98.0-1 10.0 abnormal Not Available [facility] [address] [facility] Melani [facility] [address], [place], [address], 02/09/2025 11:21:28 02/10/20 25 02/09/2025 BMP (FEMA LE) C02 21.0 mmol/ L 22.0-3 1.0 low Not Available [facility] [address] [facility] Melani [facility] [address], [place], [address], 02/09/2025 11:21:28 02/10/20 25 02/09/2025 BMP (FEMA LE) anion gap 11.0 calc Not Available [facility] [address] [facility] [address], [place], [address], 02/09/2025 11:21:28 02/12/20 25 02/11/2025 CMP (FEMA LE) glucose 99.0 mg/dL 60.0-9 9.0 Not Available [facility] [address] [facility] [address], [place], [address], 02/11/2025 11:44:29 02/12/20 25 02/11/2025 CMP (FEMA LE) BUN (blood urea nitrogen) 19.0 mg/dL 10.0-2 6.0 Not Available [facility] [address] [facility] 1, [place], [address], 02/11/2025 11:44:29 02/12/20 25 02/11/2025 CMP (FEMA LE) creatinine (serum) 0.6 mg/dL 0.4-1. 5 Not Available [facility] [address] [facility] 1, [place], [address], 02/11/2025 11:44:29 02/12/20 25 02/11/2025 CMP (FEMA LE) BUN/creatini ne ratio 31.67 ratio Not Available [facility] [address] [facility], [place], [address], 02/11/2025 11:44:29 02/12/20 25 02/11/2025 CMP (FEMA LE) eGFR calculated 101.5 Not Available [facility] [address] [facility] 1, [place], [address], 02/11/2025 11:44:29 02/12/20 25 02/11/2025 CMP (FEMA LE) total protein 7.3 g/dL 6.0-8. 5 Not Available [facility] [address] Melani [facility] 1, [place], [address], 02/11/2025 11:44:29 02/12/20 25 02/11/2025 CMP (FEMA LE) total bilirubin 1.0 mg/dL 0.2-1. 3 Not Available [facility] [address] [facility] 1, [place], [address], 02/11/2025 11:44:29 02/12/20 25 02/11/2025 CMP (FEMA LE) albumin 4.1 g/dL 3.5-5. 5 Not Available [facility] [address] Melani [facility] 1, [place], [address], 02/11/2025 11:44:29 02/12/20 25 02/11/2025 CMP (FEMA LE) globulin 3.2 calc Not Available [facility] [address] [facility] 1, [place], [address], 02/11/2025 11:44:29 02/12/20 25 02/11/2025 CMP (FEMA LE) AST (SGOT) 30.0 U/L 0.0-46 .0 Not Available [facility] [address] [facility], [place], [address], 02/11/2025 11:44:29 02/12/20 25 02/11/2025 CMP (FEMA LE) altv (SGPT) 35.0 U/L 13.0-6 9.0 normal Not Available [facility] [address]ani [facility] 1, [place], [address], 02/11/2025 11:44:29 02/12/20 25 02/11/2025 CMP (FEMA LE) A/G ratio 1.3 ratio Not Available [facility] [address]ani [facility] 1, [place], [address], 02/11/2025 11:44:29 02/12/20 25 02/11/2025 CMP (FEMA LE) ALP phos 86.0 U/L 30.0-1 40.0 normal Not Available [facility] [address] [facility], [place], [address], 02/11/2025 11:44:29 02/12/20 25 02/11/2025 CMP (FEMA LE) calcium 8.9 mg/dL 8.4-10 .5 Not Available [facility] [address] [facility] 1, [place], [address], 02/11/2025 11:44:29 02/12/20 25 02/11/2025 CMP (FEMA LE) sodium 121.0 mmol/ L 136.0- 145.0 low Not Available [facility] [address] [facility] 1, [place], [address], 02/11/2025 11:44:29 02/12/20 25 02/11/2025 CMP (FEMA LE) potassium 4.1 mmol/ L 3.5-5. 1 Not Available [facility] [address] [facility] 1, [place], [address], 02/11/2025 11:44:29 02/12/20 25 02/11/2025 CMP (FEMA LE) chloride 90.0 mmol/ L 98.0-1 10.0 abnormal Not Available [facility] [address] [facility] 1, [place], [address], 02/11/2025 11:44:29 02/12/20 25 02/11/2025 CMP (FEMA LE) C02 21.0 mmol/ L 22.0-3 1.0 low Not Available [facility] [address] [facility] 1, [place], [address], 02/11/2025 11:44:29 02/12/20 25 02/11/2025 CMP (FEMA LE) anion gap 10.0 calc Not Available [facility] [address] [facility], [place], [address], 02/11/2025 11:44:29 02/12/20 25 02/11/2025 CMP (NUSRAT MARTINA) osmolality 253.3 calc Not Available [facility] [address] [facility], [place], [address], 02/11/2025 11:44:29 12/10/19 25 12/09/2024 XR, chest , 2 view No observ ation record ed. [address] ([facility]) [address] [place], [address], 12/09/2024 13:32:14 12/10/19 25 12/09/2024 elect rocar diogr am No observ ation record ed. [address] ([facility]) [address] [place], [address], 12/09/2024 13:31:47 12/10/19 25 12/09/2024 elect rocar diogr am No observ ation record ed. [email or web address] [facility] ([facility]) [address] [place], [address], 12/10/2024 09:14:44 12/11/19 25 12/09/2024 XR, chest , 2 view No observ ation record ed. [email or web address] [facility] ([facility]) [address] [place], [address], 12/12/2024 11:46:07 01/02/20 25 12/09/2024 elect rocar diogr am No observ ation record ed. [email or web address] [facility] ([facility]) [address] [place], [address], 01/05/2025 09:54:49 02/07/20 25 02/09/2025 XR, chest , 2 view No observ ation record ed. [address] ([facility]) [address] [place], [address], 02/11/2025 10:03:25 02/07/20 25 02/06/2025 US, echoc ardio gram, trans thora cic, compl ete, w/ color flow No observ ation record ed. [address] [facility] [address] [place], [address], 02/11/2025 10:03:25 02/11/20 25 02/06/2025 XR, chest , 2 view No observ ation record ed. [address] [place], [address], 02/11/2025 10:03:25 02/12/20 25 02/11/2025 elect rocar diogr am No observ ation record ed. [address] ([facility]) [address] [place], [address], 02/11/2025 16:19:38 02/12/2002/06/2025 US, echoc ardio gram, trans thora cic, compl ete, w/ color flow No observ ation record ed. [email or web address] [facility] [address] [place], [address], 02/12/2025 09:37:13 02/12/2002/11/2025 elect rocar diogr am No observ ation record ed. [email or web address] [facility] ([facility]) [address] [place], [address], 02/12/2025 09:37:32 Result Notes None recorded. 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 4 08:42:52 Hiatal hernia 03374587 Active 2022 CHARMAINE beltrán, [facility] 5 08:16:49 Hypothyro idism 64339510 Active 2022 CHARMAINE beltrán, [facility] 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 Leblanc.; CHARMAINE beltrán, [facility] 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 5 08:16:49 Essential hypertens ion 23029069 Active 2022 CHARMAINE beltrán, [facility] 3 12:37:21 Coronary atheroscl erosis 144152279 Active 2022 CHARMAINE beltrán, [facility] 3 12:38:52 Rosacea 429858364 Active 2022 [facility] 12:39:12 Malignant tumor of breast 349071983 Active 2022 mastectom y and TRAM flap reconstru ction, followed by 5 years of tamoxifen CHARMAINE beltrán [facility] 5 08:16:49 Obstructi ve sleep apnea syndrome 19650459 Active 2022 CHARMAINE beltrán [facility] 3 10:26:58 Pain of right knee joint 949975630742 100 Active [address] [facility] 5 08:16:58 [facility] 74171394 Active 2024 CHARMAINELa ORTIZ [facility] 5 10:04:31 Problem Notes None recorded. Procedures Surgical History Date Name Laterality Status Provider Name and Address Organization Details Recorded Time 12/10/19 20 complete repair of rotator cuff completed [facility] 05/16/2023 13:03:35 Mastectomy completed [facility] 05/16/2023 13:04:30 tonsillectomy and adenoidectomy completed [facility] 05/16/2023 13:04:55 excision of uvula completed [facility] 05/16/2023 13:05:02 subtotal thyroidectomy completed [facility] 05/16/2023 13:05:29 Imaging Results None recorded. Procedure Notes None recorded. Medical Equipment None Reported. Allergies Allergen ID Allergen Name Allergen Category Reaction Reaction Severity Criticality Documentation Date Start Date Code Code System Note Provider Name and Address Organization Details Recorded Time 1922 codeine medicatio n Not available Not available Not available 11/17/2022 2670 RxNorm [facility] 08:26:15 1924 propoxyph jeremy hydrochlo ride medicatio n Not available Not available Not available 11/17/2022 81755 [facility] 08:26:30 1925 clarithro mycin medicatio n Not available Not available Not available 11/17/2022 65251 RxNorm [facility] 3 12:36:01 1926 losartan medicatio n Not available Not available Not available 11/17/2022 32909 RxNorm [facility] 3 08:26:49 1927 Demerol medicatio n dizziness Not available Not available 11/17/2022 86194 1 RxNorm CHARMAINE beltrán, [facility] 3 12:36:24 1928 adhesive tape environme nt,medica tion Not available Not available Not available 11/17/2022 22372 UNK [facility] 3 08:27:17 08452 codeine sulfate medicatio n Not available Not available Not available 02/24/2023 67594 RxNorm Comme nt: Recor ded 10/06 4:36P M by Mayra doan RN, Offic e Visit ; Promo brigitte; Janki martel ce: *; Reaso n: Drug aller gy; ; [facility] 3 12:36:06 77734 erythromy lois medicatio n Not available Not available Not available 02/24/2023 4053 RxNorm [facility] 4 08:39:34 43095 tramadol hydrochlo ride medicatio n Not available Not available Not available 02/24/2023 76516 RxNorm [facility] 4 08:39:57 48747 Lipitor medicatio n arthralgi a (joint pain) moderate low 02/24/2023 47454 5 RxNorm [place] [facility] 4 17:46:04 Medications Name Sig Start Date Stop Date Status Note LastModified by Organization Details LastModified Time celecoxib 200 mg capsule Take 1 capsule every day by oral route for 90 days, for arthriti s pain. active Not Available Not Available No t Available amoxicill in 500 mg capsule Take 2 capsules twice a day by oral route for 10 days. 12/09 completed Not Available Not Available Not Available furosemid e 40 mg tablet Take 1 tablet every day by oral route for 30 days. 2024 active Not Available Not Available Not Avai lable promethaz ine-DM 6.25 mg-15 mg/5 mL oral syrup every six hours, as needed 11/17 completed Not Available Not Available Not Available doxycycli ne hyclate 100 mg capsule Take 1 capsule twice a day by oral route for 7 days. 11/17 completed Not Available Not Available Not Available cetirizin e 10 mg tablet Take 1 tablet every day by oral route as needed. active Not Available Not Available No t Available prednison e 20 mg tablet Take 2 tablets every day by oral route in the morning for 7 days. 08/15 completed Not Available Not Available Not Available alendrona te 70 mg tablet TAKE 1 TABLET BY MOUTH EVERY 7 DAYS ON an empty stomach before other meds, with 8oz of water stay upright 30 minutes active Not Available Not Available No t Available fluoroura cil 5 % topical cream 05/16 completed Not Available Not Available Not Available potassium chloride ER 10 mEq tablet,ex tended release Take 1 tablet every day by oral route. 2024 active Not Available Not Available Not Avai lable aspirin 81 mg tablet,de layed release Take 1 tablet every day by oral route. active Not Available Not Available No t Available triamcino lone acetonide 0.1 % topical cream three times daily active Not Available Not Available No t Available amoxicill in 500 mg tablet 01/09 completed Not Available Not Available Not Available levothyro xine 100 mcg tablet Take 1 tablet every day by oral route. active Not Available Not Available No t Available isosorbid e mononitra te ER 60 mg tablet,ex tended release 24 hr Take 1 tablet every day by oral route for 90 days. 2024 active Not Available Not Available Not Avai lable levothyro xine 88 mcg tablet TAKE 1 TABLET BY MOUTH EVERY DAY 12/09 completed Not Available Not Available Not Available meclizine 25 mg tablet 12/09 completed Not Available Not Available Not Available pantopraz ole 40 mg tablet,de layed release TAKE 1 TABLET DAILY 2024 active Not Available Not Available Not Avai lable telmisart an 40 mg tablet TAKE 1 TABLET BY MOUTH EVERY DAY 2024 active Not Available Not Available Not Avai lable nitroglyc gonzalo 0.4 mg sublingua l tablet active Not Available Not Available Not Available hydrocort isone 2.5 % topical cream 08/15 completed Not Available Not Available Not Available methylpre dnisolone 4 mg tablets in a dose pack 11/17 completed Not Available Not Available Not Available albuterol sulfate HFA 90 mcg/actua tion aerosol inhaler 2024 active Not Available Not Available Not Avai lable Vitamin D2 1,250 mcg (50,000 unit) capsule take 1 capsule BY MOUTH EVERY 30 DAYS active Not Available Not Available No t Available ketorolac 60 mg/2 mL intramusc ular solution Inject 2 mL by intramus cular route for 1 day. 01/09 completed Not Available Not Available Not Available hydrocort isone 2.5 % topical ointment 11/17 completed Not Available Not Available Not Available ketoconaz ole 2 % topical cream 08/29 completed Not Available Not Available Not Available ondansetr on 4 mg disintegr ating tablet 08/29 completed Not Available Not Available Not Available cefdinir 300 mg capsule 08/29 completed Not Available Not Available Not Available fluticaso ne propionat e 50 mcg/actua tion nasal spray,[employer] [place] 1 spray every day by intranas al route. 08/15 completed Not Available Not Available Not Available amoxicill in 875 mg-potass ium clavulana te 125 mg tablet Take 1 tablet twice a day by oral route for 10 days. 08/15 completed Not Available Not Available Not Available Mucinex 600 mg tablet, extended release Take 1 tablet every 12 hours by oral route for 9 days. 12/09 completed Not Available Not Available Not Available ezetimibe 10 mg tablet Take 1 tablet every day by oral route for 90 days. 2024 active Not Available Not Available Not Avai lable nitrofura ntoin monohydra te/macroc rystals 100 mg capsule 11/17 completed Not Available Not Available Not Available omega-3 acid ethyl esters 1 gram capsule 04/12 completed Not Available Not Available Not Available Aspir-81 at bedtime 05/16 completed 436; Recorded 07/05/20 2:55PM by Shelli Mcqueen LPN (Authori zed through Charlotte Márquez MD), Office Visit; Refill Quantity : 0; Not Available Not Available Not Available Vitamin D monthly 04/12 completed 0; Recorded 10/07/19 4:36PM by Mayra Coats RN, Office Visit; Not Available Not Available Not Available Tylenol prn 08/29 completed Not Available Not Available Not Available cetirizin e prn 08/29 completed Not Available Not Available Not Available Metamucil active Not Available Not Arin ilable Not Available Micardis daily 04/12 completed 0; Recorded 10/07/19 4:36PM by Mayra Coats RN, Office Visit; Not Available Not Available Not Available PreserVis ion AREDS daily active 0; Recorded 10/07/19 4:36PM by Mayra Coats RN, Office Visit; Not Available Not Available Not Available Lovaza two times daily 04/12 completed 0; Recorded 10/07/19 4:36PM by Mayra Coats RN, Office Visit; Not Available Not Available Not Available diclofena c 1 % topical gel AAA four times daily prn 12/19 completed Not Available Not Available Not Available Vitamin D2 04/01 completed Not Available Not Available Not Available Paxlovid 300 mg (150 mg x 2)-100 mg tablets in a dose pack 11/17 completed Not Available Not Available Not Available Vitals Date Recorded Body height Body mass index (BMI) Body weight Body temperature Heart rate Oxygen saturation Oxygen saturation in Arterial blood by Pulse oximetry Systolic And Diastolic Provider Name and Address Organization Details Last Updated DateTime 157.48 cm 34 kg/m2 48653.1 8 g 98.2 [degF] 66 /min 98 % 98 % 152/80 mm[Hg] CHARMAINE ORTIZ [facility] 5 08:13:02 Date Recorded Body height Body mass index (BMI) Body weight Body temperature Heart rate Oxygen saturation Oxygen saturation in Arterial blood by Pulse oximetry Systolic And Diastolic Provider Name and Address Organization Details Last Updated DateTime 5 157.48 cm 34.9 kg/m2 37925.1 4 g 97.9 [degF] 70 /min 98 % 98 % 146/92 mm[Hg] Aleksandra Philippe [facility] 5 08:15:43 Date Recorded Systolic And Diastolic Provider Name and Address Organization Details Last Updated DateTime 02/06/2025 160/100 mm[Hg] CHARMAINE [facility] 02/06/2025 13:06:41 Date Recorded Body height Body mass index (BMI) Body weight Oxygen saturation Oxygen saturation in Arterial blood by Pulse oximetry Heart rate Body temperature Provider Name and Address Organization Details Last Updated DateTime 5 157.48 cm 34.1 kg/m2 17991.5 8 g 98 % 98 % 48 /min 97.8 [degF] Denise Elias [facility] 5 11:16:28 Date Recorded Body height Body mass index (BMI) Body weight Oxygen saturation Oxygen saturation in Arterial blood by Pulse oximetry Heart rate Respiratory rate Body temperature Systolic And Diastolic Provider Name and Address Organization Details Last Updated DateTime 5 157.48 cm 33.3 kg/m2 62895.8 1 g 99 % 99 % 54 /min 18 /min 96.7 [degF] 136/82 mm[Hg] Mercedez Montilla [facility] 5 09:47:48 Social History Question Answer Notes LastModified by Organizat ion Details LastModified Time Tobacco Smoking Status Never Smoker Mercedez beltrán [facility] 02/11/2025 09:51:33 What Was The Date Of Your Most Recent Tobacco Screening? 02/06/2025 [email or web address] Information not available 02/06/2025 How Much Tobacco Do You Smoke? No [email or web address] Information not available 01/08/2025 Sex: Unknown Functional Status Question Answer Note LastModified by Organizat ion Details LastModified Time Do you use any illicit or recreational drugs? No [email or web address] Information not available 05/16/2023 Do you or have you ever used any other forms of tobacco or nicotine? No [email or web address] Information not available 05/16/2023 What is your level of alcohol consumption? None [email or web address] Information not available 05/16/2023 Mental Status None recorded. Family History Relationship Description Onset Age of this Age Resolved Age Notes LastModified by Organization Details LastModified Time Sister Malignant tumor of breast [email or web address] Not available 05/16 12:40:55 Brother Malignant tumor of stomach [email or web address] Not available 05/16 12:41:23 Mother Coronary atherosclero sis [email or web address] Not available 05/16 12:42:47 Medical History No medical history recorded. Gynecological HistoryNo gynecological history recorded. Obstetrics History GPAL:G 0 P 0 0 0 0 Immunizations Vaccine Type Date Status Note Provider Nam e and Address Organization Details Recorded Time zoster live 7 completed Not Available [facility] 08/15/2023 08:36:12 rabies, unspecified formulation 3 completed Not Available [facility] 08/15/2023 08:36:12 Td (adult), 2 Lf tetanus toxoid, preservative free, adsorbed 6 completed Not Available [facility] 08/15/2023 08:36:12 COVID-19, mRNA, LNP-S, PF, 100 mcg/0.5mL dose or 50 mcg/0.25mL dose 1 completed Aleksandra beltrán [facility] 04/12/2023 08:20:22 COVID-19, mRNA, LNP-S, PF, 100 mcg/0.5mL dose or 50 mcg/0.25mL dose 1 completed Aleksandra beltrán [facility] 04/12/2023 08:20:22 Influenza, split virus, trivalent, preservative 1 completed Not Available [facility] 08/15/2023 08:36:12 Influenza, split virus, trivalent, preservative 6 completed Not Available [facility] 08/15/2023 08:36:12 Pneumococcal conjugate PCV 13 7 completed Not Available [facility] 08/15/2023 08:36:12 Tdap 3 completed Not Available [facility] 08/15/2023 08:36:12 zoster recombinant 0 completed Aleksandra Philippe [facility] 04/12/2023 08:20:22 COVID-19, mRNA, LNP-S, PF, 100 mcg/0.5mL dose or 50 mcg/0.25mL dose 1 completed Aleksandra Philippe [facility] 04/12/2023 08:20:22 COVID-19, mRNA, LNP-S, bivalent, PF, 50 mcg/0.5 mL or 25mcg/0.25 mL dose 2 completed Aleksandra Philippe [facility] 04/12/2023 08:20:22 Influenza, split virus, trivalent, preservative 2 completed Aleksandra Philippe [facility] 04/12/2023 08:20:22 Influenza, split virus, trivalent, preservative 1 completed Aleksandra Philippe [facility] 04/12/2023 08:20:22 Influenza, split virus, trivalent, preservative 3 completed CHARMAINE ORTIZ [facility] 05/16/2023 12:35:44 COVID-19, mRNA, LNP-S, PF, saul-sucrose, 30 mcg/0.3 mL 4 completed Pina Hill null, [facility] 03/27/2024 17:46:16 Influenza, high-dose, trivalent, PF 4 completed Not Available [facility] 02/11/2025 09:34:50 Past Encounters Encounter ID Performer Location Encounter Start Date Encounter Closed Date Diagnosis/Indication Diagnosis SNOMED-CT Code Diagnosis ICD10 Code Diagnosis Note [id number] JOYCE WYNNE [facility] ([facility]) [address] [place] [address] [phone] 5 11/08/2022 10:44:23 11/20/2022 09:18:34 Acute sinusitis 71919679 J01.90 [id number] Charlotte Márquez MD [facility] ([facility]) [address] [place] [address] [phone] 11/17/2022 08:15:45 11/22/2022 13:32:09 Acute sinusitis 41518003 J01.90 f/u if sx worsen [id number] Charlotte Márquez MD [facility] ([facility]) [address] [place] [address] [id number] 5 04/12/2023 08:08:12 04/12/2023 10:32:25 Type 2 diabetes mellitus without complication 311514669 E11.9 Essential hypertension 30364932 I10 Obesity 387262088 E66.01 Abdominal pain 81190511 R10.9 will probably need to do a ct to look for colon inflammati on but this is likely a result of very high fat diet eats out for dinner 4-5 times per week etc. [id number] Charlotte Márquez MD [facility] ([facility]) [address] [place] [address] [phone] 5 05/16/2023 12:33:45 05/16/2023 13:26:18 Type 2 diabetes mellitus without complication 867012852 E11.9 Abdominal pain 65516291 R10.9 when she eats low fat she does well. we reviewed her lab from the last visit. she has 1-3 formed stools with occasional loose stool.no blood or mucus. she did quit omega 3s and that has helped Essential hypertension 13939592 I10 Obesity 402406947 E66.01 Coronary atherosclerosis 101725871 I25.118 Left lower quadrant pain 086026947 R10.32 [id number] Charlotte Márquez MD [facility] ([facility]) [address] [place] [address] [phone] 06/14/2023 16:35:35 06/14/2023 18:58:08 [id number] Faizan Valero DO [facility] ([facility]) [address] [place] [address] [id number] 06/19/2023 16:42:45 06/19/2023 18:31:07 Acute upper respiratory infection 16851679 J06.9 Acute bronchitis 7082985 2 J20.9 rapid covid and rapid flu a&b all negative today. symptpoms worsneing for more than 1 wk, will start abx, steroids, prn albuterol. Return to office with no improvemen t or any problems. Go to ER with severe worsening or severe problems. [id number] Charlotte Márquez MD [facility] ([facility]) [address] [place] [address] [phone] 08/15/2023 08:35:24 08/15/2023 10:12:34 Morbid obesity 291806827 E66.01 Essential hypertension 99410566 I10 Coronary arteriosclerosis 44222474 I25.118 Chronic te nsion-type headache 730620033 G44.229 heat stretching and massagept to helptyleno l prn [id number] Charlotte Márquez MD [facility] ([facility]) [address] [place] [address] [id number] 5 01/10/2024 13:57:05 01/10/2024 15:23:23 Chronic thoracic back pain 9143911124 60394 M54.6 heat stretching and massagerec ommended considerat ion of pt Pain of ri ght knee joint [id number] M25.947 [id number] Charlotte Márquez MD [facility] ([facility]) [address] [place] [phone] 04/01/2024 09:17:28 04/01/2024 11:29:14 Pre-surgery evaluation [id number] Z01.818 she may proceed with surgery Coronary atherosclerosis [id number] I25.118 Essential hypertension [id number] I10 [id number] Charlotte Márquez MD [facility] ([facility]) [address] [place] [address] [phone] 08/29/2024 09:36:43 08/29/2024 13:33:49 Essential hypertension [id number] I10 Acute fron marta sinusitis 98087666 J01.10 Exposure t o Influenzavirus 451922723 Z20.828 exposed to flu. [id number] Charlotte Márquez MD [facility] ([facility]) [address] [place] [address] [phone] 12/09/2024 08:03:00 12/09/2024 08:55:22 Coronary atherosclerosis [id number] I25.118 Essential hypertension 73772194 I10 will also send 1 month script to kayla arnold to go through her meds and sort it out. Hypothyroidism 24217372 E03.9 Osteoporosis 94958859 M8 1.0 vit d level normal range reviewed continue current dosage. Dyspnea on exertion 6084 5006 R06.09 [id number] Charlotte Márquez MD [facility] ([facility]) [address] [place] [address] [phone] 12/31/2024 17:12:11 01/02/2025 11:23:00 Hyponatremia 17518748 E87.1 [id number] Charlotte Márquez MD [facility] ([facility]) [address] [place] [address] [phone] 01/08/2025 07:59:40 01/08/2025 08:59:19 Hyponatremia with decreased serum osmolality [id number] E87.1 hypervolem ic hyponatrem ia likely due to chf. focus on fluid restrictio n. Dark stools 11124498 R19 .5 iwill discuss her case with her cardilogis ther er report notes controlle d afib this is a bit concerning . she has a cardiology apt next week and i will talk to her cardiologi st. [id number] Charlotte Márquez MD [facility] ([facility]) [address] [place] [address] [phone] 02/06/2025 11:07:44 02/06/2025 13:40:55 Bradycardia 85348735 R00.1 Acute areli estive heart failure 50654903 I50.9 [id number] Charlotte Márquez MD [facility] ([facility]) [address] [place] [phone] 02/11/2025 09:34:28 02/12/2025 09:08:28 Coronary atherosclerosis 025175511 I25.118 Irregular heart beat 361 939218 I49.9 Hyponatremia 98373398 E8 7.1 diarrhea has stopped no fluid loss through vomiting or diarrhea.s he certainly eats a high sodium diet. etas ot pretty often. she ate at [employer] last night canned vegetables and chicken fried steak and mashed potatos. Health Concerns Section Related Observation LastModified by Organization Detai ls LastModified Time None Recorded Concern Status LastModified by Organization Details LastModified Time None Recorded Advance Directives Directive None Recorded Payers Insurance Date Sequence Insurance Name Policy Number Policy Martinez Covered Member ID Martinez Member ID Guarantor Name 02/09/2025 1 [employer] (MEDICARE REPLACEMENT/ ADVANTAGE - PPO) Ellen Karma Lompis [id number] [place] Karma Lompis 04/01/2024 1 [facility] (MEDICARE REPLACEMENT/ ADVANTAGE - HMO) [id number] [place] Karma Lompis [id number] [place] Karma Lompis 02/06/2025 2 [employer] () [place] Karma Lompis [id number] [place] Karma Melois Notes Date Note Type Note Provider Name and Address Organization Details Recorded Time 12/09/2024 text/html Musculoskeletal PainReported bypatient.Location:bi lateral lower anterior legs Severity:no change Duration:present for >12 months Timing:intermittent Associated Symptoms:swelling see scanned cmp and thyroid panel vit d level from her 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 this is reviewed. vit d and levothyroxine adjusted hypo-osmolar mild hyponatremia on that blood test sodium 133osm 274cl 97 these are reviewed and d/w the patient. she needs to resume her telmisartan and monitor home blood pressure. Charlotte Márquez MD [address] [place] [address], [phone], [facility], LKaycee 12/09/2024 08:53:22 01/08/2025 text/html Musculoskeletal PainReported bypatient.Location:bi lateral lower anterior legs Severity:no change Duration:present for >12 months Timing:intermittent Associated Symptoms:swelling Pt is here for a 1 month f/u. 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 vit d and levothyroxine adjustedhypo-osmolar mild hyponatremia on that blood test sodium 133osm 274cl 97these are reviewed and d/w the patient.she needs to resume her telmisartan and monitor home blood pressure. Pt had chest pain on Sunday and went to the ER. She was sent home the same day as they found no abnormalities other than low sodium. Pt states her chest pain has not come back. She has been having increased swelling in her BLE and black stools Sunday and Sunday. Today her BM was dark, but not black. She has not yet started the ezetimbe. this chest pain occurrred at rest about 1 hour after eating at [employer]. it would come and go. she ate a chicken blt and caffeinated tea. the pain did not radiate. she did not check her HR or bp. she is unsure if she felt any rapid heart rate or not. she reports that the pains would come and go for about 4 hours prior to going to the ER. she took a nap through the issues. her cardiac testing was unremarkable. she does not remember if the nitroglycerin helped or not. yesterday after eating a large fried mal at [employer] she had loose stool right after. she notes it was dark the next few times. Charlotte Márquez MD [address] [place] [address], [phone], [facility], [place]. 01/08/2025 08:56:54 02/06/2025 text/html walk inx 2 weeks feet swelling increased since saw PCP lastbp 136/84she had a cortisone shot this morning. Charlotte Márquez MD [address] [place] [address], [phone], [facility], Afsaneh 02/06/2025 13:22:46 OBGyn Episode No OBEpisode recorded.
--- OUTSIDE RECORDS SUMMARY | 2025-02-13 13:34 | XMS_ITS | Encounter Summary ---
Author Organization [facility] Address [address] [place] [address] Care Team Providers Care Education And Training Coordinator Name Role Phone Luís Márquez MD Primary Care Provider [phone] Encounter Details Date Type Department Care Team (Latest Contact Info) Description 10/21/[address] 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 Gender Identity Not on file Sexual Orientation Not on file documented as of this encounter Plan of Treatment Not on file documented as of this encounter Visit Diagnoses Diagnosis Other ovarian failure(256.39)- Primary Other ovarian failure Disorder of bone and cartilage, unspecified Encounter for long-term (current) use of other medications Adrenal cortical steroids causing adverse effect in therapeutic use documented in this encounter Care Teams Education And Training Coordinator Relationship Specialty Start Date End Date Luís Márquez MD [address] [facility] [address] [place] [address] PCP - General Family Practice 09/30/18 documented as of this encounter
--- OUTSIDE RECORDS SUMMARY | 2025-02-13 13:34 | XMS_ITS | Encounter Summary ---
Author Organization [facility] Address [address] [place] [address] Care Team Providers Care Compressor Station Engineer Chief Name Role Phone Luís Márquez MD Primary Care Provider [phone] Encounter Details Date Type Department Care Team (Latest Contact Info) Description 12/07/1999 Outpatient Historical [facility] Endocrinology-Joo farrah Martinez [place] [address] [place] [address] Helena Abdul MD [address] [place] [address] Postsurgical hypothyroidism (Primary Dx) Social History Tobacco Use Types Packs/Day Years Used Date Smoking Tobacco: Never Assessed Comments Unknown Sex and Gender Information Value Date Recorded Sex Assigned at Not on file 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
--- OUTSIDE RECORDS SUMMARY | 2025-02-13 13:34 | XMS_ITS | Encounter Summary ---
Author Organization [facility] Address [address] [place] [address] Care Team Providers Care Supervisor [employer] Name Role Phone Luís Márquez MD Primary Care Provider [phone] Encounter Details Date Type Department Care Team (Late st Contact Info) Description 04/05/2000 Outpatient Historical [facility] Helena Abdul MD [address] [place] [address] Other postablative hypothyroidism (Primary Dx) Social History Tobacco Use Types Packs/Day Years Used Date Smoking Tobacco: Never Assessed Comments Unknown Sex and Gender Information Value Date Recorded Sex Assigned at Not on file 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
--- OUTSIDE RECORDS SUMMARY | 2025-02-13 13:34 | XMS_ITS | Continuity of Care Document ---
Author Organization DELFINO Myles [facility], LKaycee, [facility] ([facility]) Address [address] [place] [address] Care Team Providers Care Warehouse Operator Name Role Phone MÁRQUEZCHARLOTTE Primary Care Provider Assessment No assessment recorded. Plan of Treatment Reminders Order Date Submit Date Provider Last Modified By Organization Details Last Modified Time Details Appointments None recorded. Lab CMP, serum or plasma 2024 025 [facility]US [facility], [address], [address], [place], [address], 15:32:30 CBC 2024 025 [facility], [address], [facility] [address], [place], [address], 15:32:42 BNP (B-type natriuretic peptide), serum or plasma 2024 025 [email or web address] 5 [employer] [facility], [address] [place] [address] [address], [place], [address], 08:51:00 TSH, serum or plasma 2024 025 [email or web address] 5 [employer] [facility], [address] [place] [address] [address], [address], [place], [address], 08:51:07 troponin I, serum or plasma 2024 [employer], [address], [address] [place], [address], 14:56:10 Referral None recorded. Procedures None recorded. Surgeries None recorded. Imaging electrocard iogram, routine ECG, 12 leads min [email or web address] [address] [place], [address], 5 12:23:18 electrocard iogram, routine ECG, 12 leads min 2024 [email or web address] 2 [facility] ([facility]), [address] [place], [address], 5 15:38:54 XR, chest, 2 view 2024 [email or web address] 5 [facility] ([facility]), [address] [place], [address], 13:51:34 US, echocardiog aren, transthorac ic, complete, w/ color flow - urgent new onset chf 2024 [facility] Orders, [address] [place], [address], 5 09:05:12 Medication Orders furosemide 40 mg tablet 2024 RIPARIUS [id number], [address], [employer], [place], [id number], 13:19:07 potassium chloride ER 10 mEq tablet,exte nded release 2024 [facility] #[id number], [address], [employer], [place], [id number], 13:19:07 Patient TargetsNo targets recorded. Patient Instructions Encounter Date Encounter Id Patient Instructions Last Modified By Organization Details Last Modified Time 02/06/2025 [id number] electrocardiogra m interpretation* Not available 02/09/2025 15:38:29 Reason for Referral None Reported. Results Created Date Observation Date Name Description Value Unit Range Abnormal Flag Note LastModifiedBy Organization Detail LastModifiedTime 02/07/2002/09/2025 XR, chest , 2 view No observ ation record ed. [address] ([facility]) [address] [place], [address], 02/11/2025 10:03:25 02/07/20 25 02/06/2025 US, echoc ardio gram, trans thora cic, compl ete, w/ color flow No observ ation record ed. [address] Imaging Orders [address] [place], [address], 02/11/2025 10:03:25 02/11/20 25 02/06/2025 XR, chest , 2 view No observ ation record ed. [address] [place], [address], 02/11/2025 10:03:25 02/12/20 25 02/11/2025 elect rocar diogr am No observ ation record ed. [address] ([facility]) [address] [place], [address], 02/11/2025 16:19:38 02/12/2002/06/2025 US, echoc ardio gram, trans thora cic, compl ete, w/ color flow No observ ation record ed. [address] Imaging Orders [address] [place], [address], 02/12/2025 09:37:13 02/12/20 25 02/11/2025 elect rocar diogr am No observ ation record ed. [address] ([facility]) [address] [place], [address], 02/12/2025 09:37:32 Result Notes None recorded. 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 4 08:42:52 Hiatal hernia 32268258 Active 2022 CHARMAINE beltrán [facility] 5 08:16:49 Hypothyro idism 75585939 Active 2022 CHARMAINE beltrán [facility] 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 Leblanc.; CHARMAINE beltrán [facility] 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 5 08:16:49 Essential hypertens ion 52176665 Active 2022 CHARMAINE beltrán [facility] 3 12:37:21 Coronary atheroscl erosis 176129563 Active 2022 CHARMAINE beltrán [facility] 3 12:38:52 Rosacea 692236585 Active 2022 CHARMAINE beltrán [facility] 3 12:39:12 Malignant tumor of breast 771928501 Active 2022 mastectom y and TRAM flap reconstru ction, followed by 5 years of tamoxifen CHARMAINE ORTIZ [facility] 5 08:16:49 Obstructi ve sleep apnea syndrome 17016238 Active 2022 CHARMAINE ORTIZ [facility] 3 10:26:58 Pain of right knee joint 723332464056 100 Active 2023 CHARMAINE ORTIZ [facility] 5 08:16:58 Hyponatre abena 40029321 Active 2024 [facility] 5 10:04:31 Problem Notes None recorded. Procedures Surgical History Date Name Laterality Status Provider Name and Address Organization Details Recorded Time 12/10/19 20 complete repair of rotator cuff completed [facility] 05/16/2023 13:03:35 Mastectomy completed [facility] 05/16/2023 13:04:30 tonsillectomy and adenoidectomy completed [facility] 05/16/2023 13:04:55 excision of uvula completed [facility] 05/16/2023 13:05:02 subtotal thyroidectomy completed [facility] 05/16/2023 13:05:29 Imaging Results None recorded. Procedure Notes None recorded. Medical Equipment None Reported. Allergies Allergen ID Allergen Name Allergen Category Reaction Reaction Severity Criticality Documentation Date Start Date Code Code System Note Provider Name and Address Organization Details Recorded Time 1922 codeine medicatio n Not available Not available Not available 11/17/2022 2670 RxNorm Aleksandrajose ramon Philippe [facility] 3 08:26:15 1924 propoxyph jeremy hydrochlo ride medicatio n Not available Not available Not available 11/17/2022 11479 RxNorm Aleksandra beltrán, [facility] 3 08:26:30 1925 clarithro mycin medicatio n Not available Not available Not available 11/17/2022 61469 RxNorm CHARMAINE ORTIZ leigh ann, [facility] 3 12:36:01 1926 losartan medicatio n Not available Not available Not available 11/17/2022 59559 RxNorm Aleksandra beltrán, [facility] 3 08:26:49 1927 Demerol medicatio n dizziness Not available Not available 11/17/2022 60258 1 RxNorm CHARMAINE DIANA leigh ann, [facility] 3 12:36:24 1928 adhesive tape environme nt,medica tion Not available Not available Not available 11/17/2022 79062 UNK [facility] 3 08:27:17 64165 codeine sulfate medicatio n Not available Not available Not available 02/24/2023 56523 RxNorm Comme nt: Recor ded 10/06 4:36P M by Mayra doan RN, Offic e Visit ; Promo brigitte; Janki martel ce: *; Reaso n: Drug aller gy; ; CHARMAINE beltrán, [facility] 3 12:36:06 74886 erythromy lois medicatio n Not available Not available Not available 02/24/2023 4053 RxNorm CHARMAINE DIANA leigh ann, [facility] 4 08:39:34 60905 tramadol hydrochlo ride medicatio n Not available Not available Not available 02/24/2023 66789 RxNorm CHARMAINE DIANA leigh ann, [facility] 4 08:39:57 06118 Lipitor medicatio n arthralgi a (joint pain) moderate low 02/24/2023 52545 5 RxNorm DELFINO Helm - [facility] 4 17:46:04 Medications Name Sig Start Date [...] e 50 mcg/actua tion nasal spray,[employer] [place] 1 spray every day by intranas al [...] D monthly 04/12 completed 0; Recorded 10/07/19 23 4:36PM by Mayra Coats RN, Office Visit; Not Available Not Available Not Available Tylenol prn 08/29 completed Not Available Not Available Not Available cetirizin e prn 08/29 completed Not Available Not Available Not Available Metamucil active Not Available Not Arin ilable Not Available Micardis daily 04/12 completed 0; Recorded 10/07/19 23 4:36PM by Mayra Coats RN, Office Visit; Not Available Not Available Not Available PreserVis ion AREDS daily active 0; Recorded 10/07/19 23 4:36PM by Mayra Coats, TERESA, Office Visit; Not Available Not Available Not Available Lovaza two times daily 04/12 completed 0; Recorded 10/07/19 23 4:36PM by Mayra Coats, TERESA, Office Visit; Not Available Not Available Not Available diclofena c 1 % topical gel AAA four times daily prn 12/19 completed Not Available Not Available Not Available Vitamin D2 04/01 completed Not Available Not Available Not Available Paxlovid 300 mg (150 mg x 2)-100 mg tablets in a dose pack 11/17 completed Not Available Not Available Not Available Vitals Date Recorded Systolic And Diastolic Provider Name and Address Organization Details Last Updated DateTime 02/06/2025 160/100 mm[Hg] CHARMAINE ORTIZ [facility] 02/06/2025 13:06:41 Date Recorded Body height Body mass index (BMI) Body weight Oxygen saturation Oxygen saturation in Arterial blood by Pulse oximetry Heart rate Body temperature Provider Name and Address Organization Details Last Updated DateTime 157.48 cm 34.1 kg/m2 21379.5 8 g 98 % 98 % 48 /min 97.8 [degF] Denise Elias [facility] 11:16:28 Social History Question Answer Notes LastModified by [employer] Details LastModified Time Tobacco Smoking Status Never Smoker Mercedez beltrán [facility] 02/11/2025 09:51:33 What Was The Date Of Your Most Recent Tobacco Screening? 02/06/2025 [email or web address] Information not available 02/06/2025 How Much Tobacco Do You Smoke? No [email or web address] Information not available 01/08/2025 Sex: Unknown Functional Status Question Answer Note LastModified by [employer] Details LastModified Time Do you use any illicit or recreational drugs? No [email or web address] Information not available 05/16/2023 Do you or have you ever used any other forms of tobacco or nicotine? No [email or web address] Information not available 05/16/2023 What is your level of alcohol consumption? None [email or web address] Information not available 05/16/2023 Mental Status None recorded. Family History Relationship Description Onset Age of this Age Resolved Age Notes LastModified by Organization Details LastModified Time Sister Malignant tumor of breast [email or web address] Not available 05/16 12:40:55 Brother Malignant tumor of stomach [email or web address] Not available 05/16 12:41:23 Mother Coronary atherosclero sis [email or web address] Not available 05/16 12:42:47 Medical History No medical history recorded. Gynecological HistoryNo gynecological history recorded. Obstetrics History GPAL:G 0 P 0 0 0 0 Immunizations Vaccine Type Date Status Note Provider Nam e and Address Organization Details Recorded Time zoster live 7 completed Not Available [facility] 08/15/2023 08:36:12 rabies, unspecified formulation 3 completed Not Available [facility] 08/15/2023 08:36:12 Td (adult), 2 Lf tetanus toxoid, preservative free, adsorbed 6 completed Not Available [facility] 08/15/2023 08:36:12 COVID-19, mRNA, LNP-S, PF, 100 mcg/0.5mL dose or 50 mcg/0.25mL dose 1 completed Aleksandra beltrán [facility] 04/12/2023 08:20:22 COVID-19, mRNA, LNP-S, PF, 100 mcg/0.5mL dose or 50 mcg/0.25mL dose 1 completed Aleksandra beltrán [facility] 04/12/2023 08:20:22 Influenza, split virus, trivalent, preservative 1 completed Not Available [facility] 08/15/2023 08:36:12 Influenza, split virus, trivalent, preservative 6 completed Not Available [facility] 08/15/2023 08:36:12 Pneumococcal conjugate PCV 13 7 completed Not Available [facility] 08/15/2023 08:36:12 Tdap 3 completed Not Available [facility] 08/15/2023 08:36:12 zoster recombinant 0 completed Aleksandra beltrán [facility] 04/12/2023 08:20:22 COVID-19, mRNA, LNP-S, PF, 100 mcg/0.5mL dose or 50 mcg/0.25mL dose 1 completed Aleksandra beltrán [facility] 04/12/2023 08:20:22 COVID-19, mRNA, LNP-S, bivalent, PF, 50 mcg/0.5 mL or 25mcg/0.25 mL dose 2 completed [facility] 04/12/2023 08:20:22 Influenza, split virus, trivalent, preservative 2 completed Aleksandra Philippe [facility] 04/12/2023 08:20:22 Influenza, split virus, trivalent, preservative 1 completed Aleksandra Philippe [facility] 04/12/2023 08:20:22 Influenza, split virus, trivalent, preservative 3 completed CHARMAINE ORTIZ [facility] 05/16/2023 12:35:44 COVID-19, mRNA, LNP-S, PF, saul-sucrose, 30 mcg/0.3 mL 4 completed Pina Hill [facility] 03/27/2024 17:46:16 Influenza, high-dose, trivalent, PF 4 completed Not Available [facility] 02/11/2025 09:34:50 Past Encounters Encounter ID Performer Location Encounter Start Date Encounter Closed Date Diagnosis/Indication Diagnosis SNOMED-CT Code Diagnosis ICD10 Code Diagnosis Note [id number] Charlotte Márquez MD [facility] ([facility]) [address] [place] [address] 01/08/2025 07:59:40 01/08/2025 08:59:19 Hyponatremia with decreased serum osmolality 591138001 E87.1 hypervolem ic hyponatrem ia likely due to chf. focus on fluid restrictio n. Dark stools 94146581 R19 .5 graeme discuss her case with her cardilogis ther er report notes controlle d afib this is a bit concerning . she has a cardiology apt next week and i will talk to her cardiologi st. [id number] Charlotte Márquez MD [facility] [address] [place] [address] 02/06/2025 11:07:44 02/06/2025 13:40:55 Bradycardia 28630704 R00.1 Acute areli estive heart failure 28046676 I50.9 Health Concerns Section Related Observation LastModified by Organization Detai ls LastModified Time None Recorded Concern Status LastModified by Organization Details LastModified Time None Recorded Payers Encounter Date Sequence Insurance Name Policy Number Policy Martinez Covered Member ID Martinez Member ID Guarantor Name 02/06/2025 1 [employer] (MEDICARE REPLACEMENT /ADVANTAGE - PPO) Ellen Bear [id number] Ellen Bear 02/06/2025 2 [employer] LIFE () Ellen Bear [id number] Ellen Bear Notes Date Note Type Note Provider Name and Address Organization Details Recorded Time 02/06/2025 text/html walk inx 2 weeks feet swelling increased since saw PCP lastbp 136/84she had a cortisone shot this morning. Charlotte Márquez MD [address] [place] [address], [phone], [facility], Afsaneh 02/06/2025 13:22:46 OBGyn Episode No OBEpisode recorded.
--- OUTSIDE RECORDS SUMMARY | 2025-02-13 13:34 | XMS_ITS | Encounter Summary ---
Author Organization [facility] Address [address] [place] [address] Care Team Providers Care Pipeman Name Role Phone Luís Márquez MD Primary Care Provider [phone] Encounter Details Date Type Department Care Team (Latest Contact Info) Description 10/28/1997 Outpatient Historical [facility] Jose M Jackson MD [address] [place] [address] Personal history of malignant neoplasm of breast (Primary Dx) Social History Tobacco Use Types Packs/Day Years Used Date Smoking Tobacco: Never Assessed Comments Unknown Sex and Gender Information Value Date Recorded Sex Assigned at Not on file 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
--- OUTSIDE RECORDS SUMMARY | 2025-02-13 13:34 | XMS_ITS | Encounter Summary ---
Author Organization [facility] Address [address] [place] [address] Care Team Providers Care Material Scheduler Name Role Phone Luís Márquez MD Primary Care Provider [phone] Encounter Details Date Type Department Care Team (Latest Contact Info) Description 08/11/[address] [facility] End[facility] Nito [address] [place] [address] Guillermina Lomeli MD [address] 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
--- OUTSIDE RECORDS SUMMARY | 2025-02-13 13:34 | XMS_ITS | Encounter Summary ---
Author Organization [facility] Address [address] [place] [address] Care Team Providers Care Punch Press Operator Name Role Phone Luís Márquez MD Primary Care Provider [phone] Encounter Details Date Type Department Care Team (Latest Contact Info) Description 08/09/2004 Outpatient Historical [facility]inology-[facility] Nito [address] [place] [address] Guillermina Lomeli MD [address] 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
[2025-02-13 16:47] LABS: Hematocrit 37.5 % (36-47); Hemoglobin 13.10 g/dL (11.27-16.99); Mean Corpuscular HGB Conc 34.9 g/dL (30-55); Mean Corpuscular Hemoglobin 29.9 pg (27-33); Mean Corpuscular Volume 85.6 fl (85-98); Nucleated Red Blood Cells % 0 %; Platelet Count 234 10^3/cmm (157-399); Red Blood Count 4.38 10^6/uL (3.85-5.65); White Blood Count 11.08 10^3/uL (3.29-11.43)
--- NOTE | 2025-02-13 16:57 | ECG_ITS ---
[facility] Test Date: 2025-02-13 Pat Name: Ellen Bear Department: Room: Gender: Female Hvac Controls Technician: : 1940 Requested By: Hawk Dow Order Number: [id number] Iraheta MD: Josette Herman M.D. Measurements Intervals [place] Rate: 63 P: 0 WY: 0 QRS: 39 QRSD: 77 T: 61 QT: 456 QTc: 467 Interpretive Statements multifocal atrial rhythm MODERATE ST DEPRESSION [0.05+ mV ST DEPRESSION] WARNING: DATA QUALITY MAY AFFECT INTERPRETATION Compared to ECG 01/04/2025 19:33:59 ST (T wave) deviation now present Sinus rhythm no longer present Sinus arrhythmia no longer present Electronically Signed On 02-14-2025 00:16:46 CDT by Josette Herman M.D. [email or web address]
[2025-02-13 17:04] LABS: Glucose Urine UA Negative (Normal); Nitrate Urine Negative (Negative); Specific Gravity, Urine 1.004 (1.005-1.030)
[2025-02-13 17:08] LABS: Add Urine Microscopic? YES
[2025-02-13 17:11] LABS: Alanine Aminotransferase 24 U/L (0-33); Albumin Level 3.7 g/dL (3.5-5.2); Alkaline Phosphatase 95 U/L (35-105); Anion Gap 20.0 (5-19); Aspartate Amino Transferase 19 U/L (0-32); Blood Urea Nitrogen 9 mg/dL (8-23); Calcium 8.9 mg/dL (8.5-10.5); Carbon Dioxide 22 mmol/L (22-29); Chloride 86 mmol/L (98-107); Creatinine Clr Calc Pharmacy 50.4341; Globulin 3.4 g/dL (1.3-4.6); Glucose 94 mg/dL (65-115); Lipase 47 U/L (13-60); Osmolality Calculated 256 mOsm/kg (285-295); Potassium 4.0 mmol/L (3.5-5.1); Sodium 124 mmol/L (136-145); Total Protein 7.1 g/dL (6.6-8.7)
--- NOTE | 2025-02-13 19:24 | W.ED.RECABL ---
HPI - Recheck/Abnormal Lab/Rx General: Chief Complaint: Recheck/Abnormal Lab/Rx Stated Complaint: abd lab Time Seen by Provider: 02/13/25 15:43 History of Present Illness: 84-year-old female presenting to the ED for evaluation of hyponatremia. Patient reports she was instructed by her physician to come to the ED for IV sodium supplementation after recent laboratory work showed a declining serum sodium level. Her sodium was 121 mEq/L two days ago (Sunday). The patient reports experiencing shortness of breath, described as huffing and puffing, which has been ongoing but not necessarily new. She denies excessive water intake beyond her usual consumption of water and tea. Patient was recently started on furosemide 40mg for significant lower extremity edema that began approximately one week ago. She states her feet and legs were so swollen last Sunday that she couldn't even get shoes on. The diuretic therapy appears to have contributed to her current hyponatremia. Patient also has a history of lymph node removal on one side, which may contribute to her edema. Related Data Home Medications ?Medication ?Instructions ?Recorded ?Confirmed cetirizine 10 mg capsule (All Day 10 mg PO DAILY PRN allergies 11/10/19 02/06/25 Allergy (cetirizine)) levothyroxine 88 mcg capsule 88 mcg PO DAILY 11/10/19 02/06/25 psyllium husk 3.4 gram/5.4 gram 1 tbsp PO BID 12/09/19 02/06/25 oral powder (Metamucil) prevagen 1 tab PO DAILY 04/14/20 02/06/25 pantoprazole 40 mg tablet,delayed 40 mg PO DAILY 10/12/20 02/06/25 release fluticasone propionate 50 1 spray intranasal DAILY PRN 04/14/21 02/06/25 mcg/actuation nasal allergies spray,suspension (Flonase Allergy Relief) vitamins A,C,F-[id number] 4,296 1 cap PO BID 10/11/21 02/06/25 mcg-226 mg-90 mg capsule (PreserVision AREDS) aspirin 81 mg tablet,delayed 81 mg PO QPM 04/12/22 02/06/25 release alendronate 70 mg tablet 70 mg PO Q7D 05/19/24 02/06/25 celecoxib 200 mg capsule 200 mg PO DAILY 05/19/24 02/06/25 acetaminophen 500 mg tablet 500 mg PO Q6H PRN Pain 08/15/24 02/06/25 ergocalciferol (vitamin D2) 1,250 50,000 unit PO .Q30D 08/15/24 02/06/25 mcg (50,000 unit) capsule (Vitamin D2) ezetimibe 10 mg tablet 10 mg PO DAILY 08/15/24 02/06/25 telmisartan 40 mg tablet 40 mg PO DAILY 08/15/24 02/06/25 Previous Rx's ?Medication ?Instructions ?Recorded nitroglycerin 0.4 mg sublingual 0.4 mg sublingual Q5M PRN chest 10/18/22 tablet pain 30 days #30 tabs diclofenac sodium 1 % topical gel 4 g topical QID PRN joint pain 01/26/24 #100 grams meclizine 25 mg tablet 25 mg PO QID PRN dizziness #20 tabs 08/15/24 ondansetron 4 mg disintegrating 4 mg PO Q8H PRN nausea and 08/15/24 tablet vomiting #10 tabs isosorbide mononitrate 60 mg 60 mg PO QPM #90 tabs 01/16/25 tablet,extended release 24 hr Allergies Allergy/AdvReac Type Severity Reaction Status Date / Time morphine Allergy Intermediate N/V Verified 02/13/25 13:50 adhesive tape Allergy hives Verified 02/13/25 13:50 atorvastatin (From Lipitor) Allergy ALGY-Joint Verified 02/13/25 13:50 Pain azithromycin Allergy unknown Verified 02/13/25 13:50 codeine Allergy unknown Verified 02/13/25 13:50 meperidine (From Demerol) Allergy unknown Verified 02/13/25 13:50 propoxyphene (From Darvon) Allergy ALGY-Hives Verified 02/13/25 13:50 PFSH ED PFSH: Medical History Primary osteoarthritis of right knee Breast CA Hypercholesteremia Hx of heart disorder CAD (coronary artery disease) Tricuspid regurgitation HTN (hypertension) Cardiomegaly Surgical History S/P left knee arthroscopy Hx of tonsillectomy H/O tubal ligation Family History Mother CAD (coronary artery disease) Dementia Stroke Brother CAD (coronary artery disease) Cancer Father Cancer Lung disease Sister Cancer Family/Other Diabetes Other Hypertension Denies family history of Clotting disorder Chronic kidney disease (CKD) Suicide Anesthesia complication Bleeding disorder Social History Smoking and tobacco/nicotine status: never used tobacco/nicotine Alcohol intake: never Substance/Drug Use: never Physical Exam Const: COMMON NORMALS: no acute distress, average body habitus, alert and well nourished GENERAL APPEARANCE: cooperative ORIENTATION/CONSCIOUSNESS: Yes awake HENMT: COMMON NORMALS: normocephalic and atraumatic HEAD & SCALP: normocephalic and atraumatic Eye: COMMON NORMALS: conjunctivae normal CONJUNCTIVA: Yes conjunctivae normal Neck/C-Spine: GENERAL: Yes normal visual inspection Resp: COMMON NORMALS: normal respiratory effort, No retractions and No use of accessory muscles Cardio: COMMON NORMALS: regular rhythm and Peripheral pulses 2+ throughout RHYTHM: regular rhythm PERIPHERAL PULSES: Peripheral pulses 2+ throughout GI: COMMON NORMALS: Soft to palpation and non-tender PALPATION: Yes Soft to palpation Extremity: COMMON NORMALS: full ROM and no pedal edema Neuro: COMMON NORMALS: no focal motor deficits SENSORIUM/ORIENTATION: Yes alert Skin: COMMON NORMALS: no rashes or lesions noted GENERAL SKIN EXAM: no rashes or lesions noted Course Vital Signs: Vital signs: Vital Signs Temperature 98.0 F 02/13/25 13:43 Pulse Rate 70 02/13/25 18:45 Respiratory Rate 16 02/13/25 13:43 Blood Pressure 150/90 02/13/25 18:45 Pulse Oximetry 98 02/13/25 18:45 Oxygen Delivery Me thod Room Air 02/13/25 13:43 MDM - Recheck/Abnormal Lab/Rx Medical Decision Making ROS: Constitutional: Denies fever, chills, or malaise. Respiratory: Positive for shortness of breath described as huffing and puffing. Cardiovascular: History of atrial fibrillation noted on EKG. Positive for recent lower extremity edema. Gastrointestinal: No complaints noted. Genitourinary: No complaints noted. Neurological: No complaints noted. Musculoskeletal: No complaints noted. Skin: No complaints noted. MEDICATIONS AND ALLERGIES: Medications: - Telmisartan (dose not specified) - Pantoprazole (dose not specified) - Zetia (ezetimibe, dose not specified) - Isosorbide (dose not specified) - Celecoxib (dose not specified) - Metamucil (dose not specified) - Potassium supplement (dose not specified) - Furosemide 40mg (recently started) INITIAL IMPRESSION AND PLAN: Given the history and presentation, the primary working diagnosis is hyponatremia secondary to diuretic therapy. Additional considerations include volume depletion, syndrome of inappropriate antidiuretic hormone secretion (SIADH), and heart failure exacerbation. Based on this initial impression I will order: 1. Comprehensive metabolic panel to assess current sodium level and other electrolytes 2. Complete blood count to evaluate for any hematologic abnormalities 3. EKG to assess cardiac rhythm 4. Urinalysis to evaluate renal function and hydration status 5. IV normal saline at 100 mL/hr for gentle sodium correction 6. Consider hospitalist consultation for admission if sodium remains significantly low TEST INTERPRETATIONS: EKG: Atrial fibrillation with rate control at 63 beats per minute. No ischemic ST elevations or depressions noted. CBC: - WBC: 11,000/?L (within normal limits) - Hemoglobin: 13 g/dL (within normal limits) - Platelets: 234,000/?L (within normal limits) Chemistry Panel: - Sodium: 124 mEq/L (improved from previous 121 mEq/L) - Chloride: 86 mEq/L (low) - BUN: 9 mg/dL (within normal limits) - Creatinine: 0.5 mg/dL (within normal limits) - Liver function tests: Normal Urinalysis: Unremarkable CONSIDERED BUT NOT PERFORMED: Rapid sodium correction was considered but not performed due to risk of central pontine myelinolysis. A more gradual correction approach was selected for patient safety. FINAL IMPRESSION: Based on all the above, my clinical impression is most compatible with hyponatremia (124 mEq/L) secondary to diuretic therapy (furosemide). The patient has shown slight improvement from previous sodium level of 121 mEq/L. The clinical picture is not currently suggestive of severe hypovolemia, adrenal insufficiency, or acute neurological complications of hyponatremia. Although other conditions were also considered, they were deemed unlikely based on the clinical information available. CLINICAL DISPOSITION: The patient's current condition is stable but requires continued monitoring in my estimation, and the most appropriate and indicated disposition at this time is admission to the medical-surgical unit with nephrology consultation. The patient requires admission for careful monitoring and correction of hyponatremia. Given the patient's age and the risks associated with both hyponatremia and its correction, inpatient management is necessary to safely normalize sodium levels while monitoring for potential complications. The patient has already shown some improvement with initial IV fluid therapy, but continued management is required. The patient was informed of the findings and plan of care and is in agreement with hospital admission. RISK STRATIFICATION AND CLINICAL DECISION RULES APPLIED: No formal clinical decision rules were applied in this case. Clinical judgment was used to determine that the patient's hyponatremia (124 mEq/L) warranted admission for careful monitoring and correction, particularly given the patient's advanced age (84 years) and the risks associated with both hyponatremia and overly rapid correction. CASE SUMMARY: 84-year-old female with history of hypertension and atrial fibrillation presented to the ED for evaluation of hyponatremia. Patient was recently started on furosemide 40mg for significant lower extremity edema. Laboratory work from two days prior showed sodium of 121 mEq/L. Patient reported ongoing shortness of breath but denied excessive water intake. In the ED, diagnostic workup revealed sodium of 124 mEq/L (improved from 121 mEq/L), with otherwise normal renal function. EKG showed rate-controlled atrial fibrillation at 63 bpm without ischemic changes. Patient was started on normal saline at 100 mL/hr for gentle sodium correction. After discussion with the hospitalist, decision was made to admit the patient to the medical-surgical unit with nephrology consultation for continued management of hyponatremia. The patient was informed of the plan and agreed with admission. The primary goal is careful correction of sodium levels while monitoring for potential complications. Lab Data 02/13/25 16:39 02/13/25 16:39 Laboratory Results WBC 11.08 10^3/uL (3.29-11.43) 02/13/25 16:39 RBC 4.38 10^6/uL (3.85-5.65) 02/13/25 16:39 Hgb 13.10 g/dL (11.27-16.99) 02/13/25 16:39 Hct 37.5 % (36-47) 02/13/25 16:39 MCV 85.6 fl (85-98) 02/13/25 16:39 MCH 29.9 pg (27-33) 02/13/25 16:39 MCHC 34.9 g/dL (30-55) 02/13/25 16:39 RDW 13.0 % (12.1-15.1) 02/13/25 16:39 Plt Count 234 10^3/cmm (157-399) 02/13/25 16:39 MPV 9.7 fL (7.4-10.4) 02/13/25 16:39 Neut % (Auto) 65.5 % 02/13/25 16:39 Lymph % (Auto) 15.7 % 02/13/25 16:39 [place] % (Auto) 14.4 % 02/13/25 16:39 Eos % (Auto) 2.3 % 02/13/25 16:39 Baso % (Auto) 0.5 % 02/13/25 16:39 Neut # (Auto) 7.26 10^3/uL (1.8-7.7) 02/13/25 16:39 Lymph # (Auto) 1.7 10^3/uL (0.8-4.8) 02/13/25 16:39 [place] # (Auto) 1.6 10^3/uL (0.2-0.9) H 02/13/25 16:39 Eos # (Auto) 0.3 10^3/uL (0.0-0.8) 02/13/25 16:39 Baso # (Auto) 0.1 10^3/uL (0.0-0.1) 02/13/25 16:39 Nucleated RBC % (auto) 0 % 02/13/25 16:39 Nucleated RBCs # 0.0 /100WBC 02/13/25 16:39 Sodium 124 mmol/L (136-145) L 02/13/25 16:39 Potassium 4.0 mmol/L (3.5-5.1) 02/13/25 16:39 Chloride 86 mmol/L (98-107) L 02/13/25 16:39 Carbon Dioxide 22 mmol/L (22-29) 02/13/25 16:39 Anion Gap 20.0 (5-19) H 02/13/25 16:39 BUN 9 mg/dL (8-23) 02/13/25 16:39 Creatinine 0.5 mg/dL (0.5-0.9) 02/13/25 16:39 GFR Calculation Not Reportable 02/13/25 16:39 Glucose 94 mg/dL (65-115) 02/13/25 16:39 Calculated Osmolality 256 mOsm/kg (285-295) L 02/13/25 16:39 Calcium 8.9 mg/dL (8.5-10.5) 02/13/25 16:39 Total Bilirubin 1.0 mg/dL (0.15-1.2) 02/13/25 16:39 AST 19 U/L (0-32) 02/13/25 16:39 ALT 24 U/L (0-33) 02/13/25 16:39 Alkaline Phosphatase 95 U/L (35-105) 02/13/25 16:39 Total Protein 7.1 g/dL (6.6-8.7) 02/13/25 16:39 Albumin 3.7 g/dL (3.5-5.2) 02/13/25 16:39 Globulin 3.4 g/dL (1.3-4.6) 02/13/25 16:39 Lipase 47 U/L (13-60) 02/13/25 16:39 Urine Color Yellow (Yellow) 02/13/25 16:51 Urine Appearance Clear (CLEAR) 02/13/25 16:51 Urine pH 7.5 (5-7) 02/13/25 16:51 Ur Specific [place] 1.004 (1.005-1.030) L 02/13/25 16:51 Urine Protein Negative (Negative) 02/13/25 16:51 Urine Glucose (UA) Negative (Normal) 02/13/25 16:51 Urine Ketones Trace (Negative) 02/13/25 16:51 Urine Blood Negative (Negative) 02/13/25 16:51 Urine Nitrate Negative (Negative) 02/13/25 16:51 Urine Bilirubin Negative (Negative) 02/13/25 16:51 Urine Urobilinogen 0.2 mg/dL (Negative) 02/13/25 16:51 Ur Leukocyte Esterase Negative (Negative) 02/13/25 16:51 Urine RBC 0-2 /hpf (0-2) 02/13/25 16:51 Urine WBC 0-5 /hpf (0-5) 02/13/25 16:51 Ur Squamous Epith Cells 0-5 /hpf (0-5) 02/13/25 16:51 Amorphous Sediment Not Reportable 02/13/25 16:51 Urine Bacteria None seen /hpf (NONE) 02/13/25 16:51 Hyaline Casts 0-4 /lpf H 02/13/25 16:51 No radiology studies performed this visit Discharge Plan Discharge Condition: Stable Prescriptions: No Action All Day Allergy (cetirizine) 10 mg capsule 10 mg PO DAILY PRN (Reason: allergies) levothyroxine 88 mcg capsule 88 mcg PO DAILY prevagen 1 tab PO DAILY pantoprazole 40 mg tablet,delayed release (DR/EC) 40 mg PO DAILY fluticasone propionate [Flonase Allergy Relief] 50 mcg/actuation spray,suspension 1 spray intranasal DAILY PRN (Reason: allergies) Rx Instructions: administer into each nostril PreserVision AREDS [id number] capsule 1 cap PO BID nitroglycerin 0.4 mg tablet, sublingual 0.4 mg sublingual Q5M PRN (Reason: chest pain) 30 Days Qty: 30 3RF Rx Instructions: until response; do not exceed 3 doses per episode celecoxib 200 mg capsule 200 mg PO DAILY alendronate 70 mg tablet 70 mg PO Q7D Rx Instructions: on Sunday diclofenac sodium 1 % gel 4 g topical QID PRN (Reason: joint pain) Qty: 100 2RF Rx Instructions: apply to single knee, ankle, foot; for foot includes sole/toes/top of foot isosorbide mononitrate 60 mg tablet extended release 24 hr 60 mg PO QPM Qty: 90 3RF Metamucil 3.4 gram/5.4 gram Powder 1 tbsp PO BID aspirin [Aspir-81] 81 mg Tablet,Delayed Release (Dr/Ec) 81 mg PO QPM acetaminophen 500 mg Tablet 500 mg PO Q6H PRN (Reason: Pain) ergocalciferol (vitamin D2) [Vitamin D2] 1,250 mcg (50,000 unit) capsule 50,000 unit PO .Q30D Rx Instructions: 10th of each month telmisartan 40 mg tablet 40 mg PO DAILY ezetimibe 10 mg tablet 10 mg PO DAILY meclizine 25 mg tablet 25 mg PO QID PRN (Reason: dizziness) Qty: 20 0RF ondansetron 4 mg tablet,disintegrating 4 mg PO Q8H PRN (Reason: nausea and vomiting) Qty: 10 0RF Referrals: Luís Márquez MD [Primary Care Provider, Family Practice] Print Language: British Coding Level of Care Code ED 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
--- NOTE | 2025-02-13 19:42 | PM.HP ---
Providers/Chief Complaint Primary Care Provider: Luís Márquez MD Chief Complaint: abd lab History of Present Illness Ellen Bear is a 84 year old female patient with a history of coronary heart disease, hypertension, cardiomegaly, hyperlipidemia, breast cancer, osteoarthritis and hypothyroidism presenting to the ED after outpatient labs yesterday revealed a sodium of 121 mEq/L (re-checked today at 124 mEq/L). One week ago Lasix 40 mg daily was started for severe bilateral leg and foot swelling that prevented shoe use. Over the weekend the patient had diarrhea (Sunday?Sunday) but no nausea or vomiting. They report persistent dry mouth, increased thirst today, intermittent light-headedness/dizziness, and chronic cold intolerance. Appetite is baseline though limited today (two bites of hamburger at noon). No deliberate sodium restriction. Blood pressures were elevated at the PCP?s office Sunday (170/100 mmHg, then 160/100 mmHg) and in ED today 150/90 mmHg. No chest pain, shortness of breath, or visual changes reported beyond known macular degeneration. The patient experiences episodic shaking/tremor of unclear etiology. Home medications (per patient) include furosemide, potassium supplement, isosorbide, baby aspirin, levothyroxine 150 ?g, and PreserVision AREDS2. Daughter is power of attorney general. Code status discussed; patient desires full resuscitation. Review of Systems Const: Reports: fatigue; Denies: fever(s), chills (No chills but frequently feels cold), body aches or malaise ENMT: Denies: throat pain Card: Reports: swelling of feet/ankles; Denies: chest pain, pre-syncope or dyspnea on exertion Resp: Denies: dyspnea, productive cough, change in phlegm color or hemoptysis GI: Reports: diarrhea (last week); Denies: abdominal pain, nausea, vomiting, constipation, hematochezia or melena : Denies: flank pain, urinary frequency or hematuria Musc: Denies: back pain, joint swelling or joint redness Skin/Breast: Denies: rash or new lesions Neuro: Denies: headache(s) or confusion Medications/Allergies Home Medications ?Medication ?Instructions ?Recorded ?Confirmed ?Last Taken ?Type cetirizine 10 mg capsule (All Day 10 mg PO DAILY PRN allergies 04/02/06/25 08/14/24 History Allergy (cetirizine)) levothyroxine 88 mcg capsule 88 mcg PO DAILY 11/10/19 02/06/25 08/15/24 History psyllium husk 3.4 gram/5.4 gram 1 tbsp PO BID 12/09/19 02/06/25 08/14/24 History oral powder (Metamucil) prevagen 1 tab PO DAILY 04/14/20 02/06/25 08/14/24 History pantoprazole 40 mg tablet,delayed 40 mg PO DAILY 10/12/20 02/06/25 08/14/24 History release fluticasone propionate 50 1 spray intranasal DAILY PRN 04/14/21 02/06/25 Unknown History mcg/actuation nasal allergies spray,suspension (Flonase Allergy Relief) vitamins A,C,Z-gwaf-bfrvgq 4,296 1 cap PO BID 10/11/21 02/06/25 08/14/24 History mcg-226 mg-90 mg capsule (PreserVision AREDS) aspirin 81 mg tablet,delayed 81 mg PO QPM 04/12/22 02/06/25 08/14/24 History release nitroglycerin 0.4 mg sublingual 0.4 mg sublingual Q5M PRN chest 10/18/22 02/06/25 Unknown Rx tablet pain 30 days #30 tabs diclofenac sodium 1 % topical gel 4 g topical QID PRN joint pain 01/26/24 02/06/25 Unknown Rx #100 grams alendronate 70 mg tablet 70 mg PO Q7D 05/19/24 02/06/25 08/13/24 History celecoxib 200 mg capsule 200 mg PO DAILY 05/19/24 02/06/25 08/14/24 History acetaminophen 500 mg tablet 500 mg PO Q6H PRN Pain 08/15/24 02/06/25 Unknown History ergocalciferol (vitamin D2) 1,250 50,000 unit PO .Q30D 08/15/24 02/06/25 08/08/24 History mcg (50,000 unit) capsule (Vitamin D2) ezetimibe 10 mg tablet 10 mg PO DAILY 08/15/24 02/06/25 08/14/24 History meclizine 25 mg tablet 25 mg PO QID PRN dizziness #20 tabs 08/15/24 02/06/25 Unknown Rx ondansetron 4 mg disintegrating 4 mg PO Q8H PRN nausea and 08/15/24 02/06/25 Unknown Rx tablet vomiting #10 tabs telmisartan 40 mg tablet 40 mg PO DAILY 08/15/24 02/06/25 08/14/24 History isosorbide mononitrate 60 mg 60 mg PO QPM #90 tabs 01/16/25 02/06/25 Unknown Rx tablet,extended release 24 hr Allergies Allergy/AdvReac Type Severity Reaction Status Date / Time morphine Allergy Intermediate N/V Verified 02/13/25 13:50 adhesive tape Allergy hives Verified 02/13/25 13:50 atorvastatin (From Lipitor) Allergy ALGY-Joint Verified 02/13/25 13:50 Pain azithromycin Allergy unknown Verified 02/13/25 13:50 codeine Allergy unknown Verified 02/13/25 13:50 meperidine (From Demerol) Allergy unknown Verified 02/13/25 13:50 propoxyphene (From Darvon) Allergy ALGY-Hives Verified 02/13/25 13:50 PFSH Acute PFSH: Medical History Primary osteoarthritis of right knee Breast CA Hypercholesteremia Hx of heart disorder CAD (coronary artery disease) Tricuspid regurgitation HTN (hypertension) Cardiomegaly Surgical History S/P left knee arthroscopy Hx of tonsillectomy H/O tubal ligation Family History Mother CAD (coronary artery disease) Dementia Stroke Brother CAD (coronary artery disease) Cancer Father Cancer Lung disease Sister Cancer Family/Other Diabetes Other Hypertension Denies family history of Clotting disorder Chronic kidney disease (CKD) Suicide Anesthesia complication Bleeding disorder Social History Smoking and tobacco/nicotine status: never used tobacco/nicotine Alcohol intake: never Substance/Drug Use: never Vitals/I&O/Wt Last Vital Signs Temp 98.0 F 02/13/25 13:43 Pulse 70 02/13/25 18:45 Resp 16 02/13/25 13:43 BP 150/90 02/13/25 18:45 Pulse Ox 98 02/13/25 18:45 O2 Del Method Room Air 02/13/25 13:43 02/13/25 02/13/25 02/13/25 06:59 14:59 22:59 Intake Total 0 / 0 Balance 0 / 0 Weight last 48 hrs Weight 81.647 kg Physical Exam Const: COMMON NORMALS: patient oriented x3 and alert GENERAL APPEARANCE: cooperative ORIENTATION/CONSCIOUSNESS: Yes awake HENMT: COMMON NORMALS: oropharynx normal Neck/C-Spine: COMMON NORMALS: no JVD Resp: COMMON NORMALS: normal respiratory effort and clear to auscultation bilaterally AUSCULTATION: clear to auscultation bilaterally Cardio: COMMON NORMALS: no JVD, regular rhythm, S1 normal heart sound present, S2 normal heart sound present and No murmurs present (Cardio) RHYTHM: regular rhythm HEART SOUNDS: S1 normal heart sound present and S2 normal heart sound present GI: COMMON NORMALS: Normal to inspection, nondistended, normoactive bowel sounds present, Soft to palpation and non-tender PALPATION: Yes Soft to palpation Extremity: COMMON NORMALS: no joint enlargement GENERAL: Yes edema Neuro: COMMON NORMALS: patient oriented x3 and moves all extremities SENSORIUM/ORIENTATION: Yes alert Skin: COMMON NORMALS: no rashes or lesions noted GENERAL SKIN EXAM: no rashes or lesions noted Data 02/13/25 16:39 02/13/25 16:39 A&P Assessment and plan 1. Hyponatremia: Hyponatremia : Sodium 124 from 121 mEq/L outpatient; likely multifactorial (recent furosemide use, weekend diarrhea, possible hypothyroidism). Sodium was dropping down, despite outpatient diuretic adjustments came down even lower down to 121. No neurologic symptoms reported. ED started gentle IV sodium replacement; plan to monitor closely to avoid rapid correction risk with rehydration. Monitor for risk of fluid overload. Reviewed vitals, CBC, CMP, UA, EKG, requesting TSH, free T4. Reviewed ED provider documentation and discussed with daytime receiving hospitalist. - Continue cautious IV fluid with sodium per ED orders. Reassess sodium tonight and in the morning. - Re-check basic metabolic panel overnight and again in the morning. - Hold furosemide while sodium <130 mEq/L. Consider discontinuation as it has been started for leg edema. She is scheduled for an echocardiogram for Sunday, will keep the plan. So far no other symptoms of congestive heart failure. Echo lower extremity duplex for DVT. CATARINO martínez, consider compression stockings at discharge 20 mmHg. 2. HTN (hypertension): Hypertension : Elevated readings (170/100, 160/100 at PCP; 150/90 in ED). Possibly stress-related; patient on chronic cardiac regimen. - Monitor BP q4h inpatient. - Continue home isosorbide and baby aspirin unless contraindicated. - Continue telmisartan and Imdur. Consider discontinuation of celecoxib which may contribute to rise in blood pressure. 3. Leg swelling: Lower-extremity edema : Severe bilateral foot/leg swelling precipitated furosemide start; clinician notes likely component of venous insufficiency with possible over-diuresis contributing to hyponatremia. - Discontinue furosemide inpatient. Consider discontinuing at discharge. Follow-up lower extremity duplex. - Encourage leg elevation and consider compression stockings. - Evaluate for venous insufficiency during admission; duplex imaging Plan: Hypothyroidism : History of left thyroid lobectomy; on levothyroxine 150 ?g. Low sodium can be exacerbated by hypothyroidism. - Obtain TSH and free T4 tonight. - Continue home levothyroxine; adjust only if labs indicate. Tremor episodes : Intermittent shaking of legs/arms, non-syncope, non-seizure per patient; not yet evaluated. - Document episodes; offer neurology outpatient referral after acute issues resolved. - Ensure no metabolic causes (check BMP, magnesium). PDMP PDMP Reviewed: Not Reviewed Attestations Medical Necessity Statement*: Place in observation for additional assessment and management of severe hyponatremia, failed outpatient management. and High MDM includes described risk of complication, morbidity or mortality of management as documented Diagnoses Hyponatremia E87.1 HTN (hypertension) I10 Leg swelling M79.89
[2025-02-13 20:38] LABS: Free T4 Free Thyroxine 1.92 ng/dL (0.82-1.77); Thyroid Stimulating Hormone 2.71 uIU/mL (0.27-4.20)
[2025-02-13 21:14] LABS: Magnesium 2.2 mg/dL (1.7-2.3); Sodium 130 mmol/L (136-145)
--- NOTE | 2025-02-13 21:41 | PM.CONSULT ---
Providers/Reason For Consult Consulting Physician/Specialty*: kommana/Nephrology Reason for Consult*: Hyponatremia Attending Physician: Marek Lunsford Primary Care Provider: Luís Márquez MD History of Present Illness History of Present Illness Ellen Bear is a 84 year old female With past medical history of coronary artery disease hypertension cardiomyopathy dyslipidemia history of breast cancer osteoarthritis and hypothyroidism was sent to the emergency department due to abnormal labs. Patient had sodium of 1 outpatient. In the ER repeat sodium was about 4. 1 week ago patient was started on Lasix due to lower extremity swelling patient also reported having some diarrhea last few days. Blood pressure stable in the 150s to 160s range. Patient was given normal in the ER and the repeat sodium level is 130. On review of prior labs patient does have chronic hyponatremia with a baseline in the 130s range. Patient currently denies any complaints, daughter at bedside. Review of Systems Narrative: negative Medications/Allergies Home Medications ?Medication ?Instructions ?Recorded ?Confirmed ?Last Taken ?Type cetirizine 10 mg capsule (All Day 10 mg PO DAILY PRN allergies 11/10/19 02/06/25 08/14/24 History Allergy (cetirizine)) levothyroxine 88 mcg capsule 88 mcg PO DAILY 11/10/19 02/06/25 08/15/24 History psyllium husk 3.4 gram/5.4 gram 1 tbsp PO BID 12/09/19 02/06/25 08/14/24 History oral powder (Metamucil) prevagen 1 tab PO DAILY 04/14/20 02/06/25 08/14/24 History pantoprazole 40 mg tablet,delayed 40 mg PO DAILY 10/12/20 02/06/25 08/14/24 History release fluticasone propionate 50 1 spray intranasal DAILY PRN 04/14/21 02/06/25 Unknown History mcg/actuation nasal allergies spray,suspension (Flonase Allergy Relief) vitamins A,C,P-hzme-[id number] 4,296 1 cap PO BID 10/11/21 02/06/25 08/14/24 History mcg-226 mg-90 mg capsule (PreserVision AREDS) aspirin 81 mg tablet,delayed 81 mg PO QPM 04/12/22 02/06/25 08/14/24 History release nitroglycerin 0.4 mg sublingual 0.4 mg sublingual Q5M PRN chest 10/18/22 02/06/25 Unknown Rx tablet pain 30 days #30 tabs diclofenac sodium 1 % topical gel 4 g topical QID PRN joint pain 01/26/24 02/06/25 Unknown Rx #100 grams alendronate 70 mg tablet 70 mg PO Q7D 05/19/24 02/06/25 08/13/24 History celecoxib 200 mg capsule 200 mg PO DAILY 05/19/24 02/06/25 08/14/24 History acetaminophen 500 mg tablet 500 mg PO Q6H PRN Pain 08/15/24 02/06/25 Unknown History ergocalciferol (vitamin D2) 1,250 50,000 unit PO .Q30D 08/15/24 02/06/25 08/08/24 History mcg (50,000 unit) capsule (Vitamin D2) ezetimibe 10 mg tablet 10 mg PO DAILY 08/15/24 02/06/25 08/14/24 History meclizine 25 mg tablet 25 mg PO QID PRN dizziness #20 tabs 08/15/24 02/06/25 Unknown Rx ondansetron 4 mg disintegrating 4 mg PO Q8H PRN nausea and 08/15/24 02/06/25 Unknown Rx tablet vomiting #10 tabs telmisartan 40 mg tablet 40 mg PO DAILY 08/15/24 02/06/25 08/14/24 History isosorbide mononitrate 60 mg 60 mg PO QPM #90 tabs 01/16/25 02/06/25 Unknown Rx tablet,extended release 24 hr Allergies Allergy/AdvReac Type Severity Reaction Status Date / Time morphine Allergy Intermediate N/V Verified 02/13/25 13:50 adhesive tape Allergy hives Verified 02/13/25 13:50 atorvastatin (From Lipitor) Allergy ALGY-Joint Verified 02/13/25 13:50 Pain azithromycin Allergy unknown Verified 02/13/25 13:50 codeine Allergy unknown Verified 02/13/25 13:50 meperidine (From Demerol) Allergy unknown Verified 02/13/25 13:50 propoxyphene (From Darvon) Allergy ALGY-Hives Verified 02/13/25 13:50 Current Medications Generic Name Dose Route Start Last Admin Trade Name Freq PRN Reason Stop Dose Admin Sodium Chloride 1,000 mls @ 100 mls/hr 02/13/25 16:36 02/13/25 16:59 Sodium Chloride 0.9% IV 02/14/25 02:35 100 mls/hr .Q10H ONE Administration PFSH Acute PFSH: Medical History (Updated 02/13/25 @ 22:11 by Jennifer Oswald MD) Primary osteoarthritis of right knee Breast CA Hypercholesteremia Hx of heart disorder CAD (coronary artery disease) Tricuspid regurgitation HTN (hypertension) Cardiomegaly Surgical History S/P left knee arthroscopy Hx of tonsillectomy H/O tubal ligation Family History Mother CAD (coronary artery disease) Dementia Stroke Brother CAD (coronary artery disease) Cancer Father Cancer Lung disease Sister Cancer Family/Other Diabetes Other Hypertension Denies family history of Clotting disorder Chronic kidney disease (CKD) Suicide Anesthesia complication Bleeding disorder Social History Smoking and tobacco/nicotine status: never used tobacco/nicotine Alcohol intake: never Substance/Drug Use: never Vitals/I&O/Wt Last Vital Signs Temp 98.0 F 02/13/25 13:43 Pulse 68 02/13/25 21:18 Resp 16 02/13/25 21:18 BP 155/88 02/13/25 21:18 Pulse Ox 100 02/13/25 21:18 O2 Del Method Room Air 02/13/25 20:00 02/13/25 02/13/25 02/13/25 06:59 14:59 22:59 Intake Total 0 / 0 Balance 0 / 0 Weight last 48 hrs Weight 81.647 kg Physical Exam Narrative: awake , alert , no distress hard of hearing S1S2 RRR per reprot Lungs clear aba no edema Data 02/13/25 16:39 02/13/25 20:37 A&P Assessment and plan 1. Hyponatremia: 1. Hyponatremia: Acute on chronic, baseline sodium levels in the low 130s range and now presented with acute worsening of sodium down to 124. Likely combination of recent diuretic use, poor p.o. intake and recent diarrhea. Status post IV fluids in the ER-normal saline. Repeat sodium is 130. Goal correction of 6 to 8 mEq in 24 hours times we will switch the fluids to D5W at 50 cc an hour and check BMP every 4 hours. Patient currently denies any complaints. Check urine sodium and urine osmolality as well. I asked RN to call me with follow-up sodium levels. Patient evaluated using audiovisual cart. Time spent 40 minutes. Patient's daughter at bedside and I updated the plan. PDMP PDMP Reviewed: Not Reviewed Consult Attestations Medical Necessity Statement: Per medicine team Coding Level of Care Code Acute Code for Chg Fwd Diagnoses Hyponatremia E87.1
[2025-02-13 22:50] LABS: Urine Random Sodium 26 mmol/L
[2025-02-13 23:05] LABS: Anion Gap 19.5 (5-19); Blood Urea Nitrogen 8 mg/dL (8-23); Calcium 9.0 mg/dL (8.5-10.5); Carbon Dioxide 23 mmol/L (22-29); Chloride 89 mmol/L (98-107); Creatinine Clr Calc Pharmacy 51.5949; Glucose 108 mg/dL (65-115); Osmolality Calculated 265 mOsm/kg (285-295); Potassium 3.5 mmol/L (3.5-5.1); Sodium 128 mmol/L (136-145)
[2025-02-14 00:52] VITALS: BP 141/70; PULSE 61; RESP 16; TEMP 36.5; O2SAT 99
[2025-02-14 02:29] LABS: Blood Urea Nitrogen 8 mg/dL (8-23); Calcium 8.6 mg/dL (8.5-10.5); Carbon Dioxide 21 mmol/L (22-29); Chloride 92 mmol/L (98-107); Creatinine Clr Calc Pharmacy 51.5949; Glucose 104 mg/dL (65-115); Osmolality Calculated 265 mOsm/kg (285-295); Sodium 128 mmol/L (136-145)
[2025-02-14 02:30] LABS: Anion Gap 19.3 (5-19); Potassium 4.3 mmol/L (3.5-5.1)
[2025-02-14 02:41] LABS: Hematocrit 37.3 % (36-47); Hemoglobin 12.90 g/dL (11.27-16.99); Mean Corpuscular HGB Conc 34.6 g/dL (30-55); Mean Corpuscular Hemoglobin 29.7 pg (27-33); Mean Corpuscular Volume 85.7 fl (85-98); Nucleated Red Blood Cells % 0 %; Platelet Count 224 10^3/cmm (157-399); Red Blood Count 4.35 10^6/uL (3.85-5.65); White Blood Count 9.47 10^3/uL (3.29-11.43)
[2025-02-14 03:55] VITALS: BP 133/87; PULSE 72; RESP 16; TEMP 36.6
[2025-02-14 05:57] VITALS: BMI 35.2
--- NOTE | 2025-02-14 06:46 | P.PN_ITS ---
Subjective 2 Subjective: Seen this morning. Sodium 126. Continue to check every 4 hours. Nephrology following. Patient states she is feeling better. Eating breakfast at this time. Vitals/I&O/Wt Last Vital Signs Temp 97.8 F 02/14/25 03:55 Pulse 72 02/14/25 03:55 Resp 16 02/14/25 03:55 BP 133/87 02/14/25 03:55 Pulse Ox 99 02/14/25 00:52 O2 Del Method Nasal Cannula 02/14/25 03:55 02/13/25 02/13/25 02/14/25 14:59 22:59 06:59 Intake Total 0 / 0 60 566 / 626 Output Total 1250 / 1250 Balance 0 / 0 -684 / -624 Weight last 48 hrs Weight 84.425 kg Weight 81.647 kg Weight 81.647 kg Physical Exam 2 Const: COMMON NORMALS: patient oriented x3 and alert GENERAL APPEARANCE: c ooperative ORIENTATION/CONSCIOUSNESS: Yes awake HENMT: COMMON NORMALS: oropharynx normal Resp: COMMON NORMALS: normal respiratory effort and clear to auscultation bilaterally AUSCULTATION: clear to auscultation bilaterally Cardio: COMMON NORMALS: regular rhythm, S1 normal heart sound present, S2 normal heart sound present and No murmurs present (Cardio) RHYTHM: regular rhythm HEART SOUNDS: S1 normal heart sound present and S2 normal heart sound present GI: COMMON NORMALS: Normal to inspection, nondistended, normoactive bowel sounds present, Soft to palpation and non-tender PALPATION: Yes Soft to palpation Extremity: COMMON NORMALS: no joint enlargement GENERAL: Yes edema Neuro: COMMON NORMALS: patient oriented x3 and moves all extremities S ENSORIUM/ORIENTATION: Yes alert Data 02/14/25 02:31 02/14/25 09:20 A&P Assessment and plan 1. Hyponatremia: Hyponatremia : Sodium 124 from 121 mEq/L outpatient; likely multifactorial (recent furosemide use, weekend diarrhea, possible hypothyroidism). Sodium was dropping down, despite outpatient diuretic adjustments came down even lower down to 121. No neurologic symptoms reported. ED started gentle IV sodium replacement; plan to monitor closely to avoid rapid correction risk with rehydration. Monitor for risk of fluid overload. Reviewed vitals, CBC, CMP, UA, EKG, requesting TSH, free T4. Reviewed ED provider documentation and discussed with daytime receiving hospitalist. - Continue cautious IV fluid with sodium per ED orders. Reassess sodium tonight and in the morning. - Re-check basic metabolic panel overnight and again in the morning. - Hold furosemide while sodium <130 mEq/L. Consider discontinuation as it has been started for leg edema. She is scheduled for an echocardiogram for Sunday, will keep the plan. So far no other symptoms of congestive heart failure. Echo lower extremity duplex for DVT. CATARINO martínez, consider compression stockings at discharge 20 mmHg. 2. HTN (hypertension): Hypertension : Elevated readings (170/100, 160/100 at PCP; 150/90 in ED). Possibly stress-related; patient on chronic cardiac regimen. - Monitor BP q4h inpatient. - Continue home isosorbide and baby aspirin unless contraindicated. - Continue telmisartan and Imdur. Consider discontinuation of celecoxib which may contribute to rise in blood pressure. 3. Leg swelling: Lower-extremity edema : Severe bilateral foot/leg swelling precipitated furosemide start; clinician notes likely component of venous insufficiency with possible over-diuresis contributing to hyponatremia. - Discontinue furosemide inpatient. Consider discontinuing at discharge. Follow-up lower extremity duplex. - Encourage leg elevation and consider compression stockings. - Evaluate for venous insufficiency during admission; duplex imaging Plan: Hypothyroidism : History of left thyroid lobectomy; on levothyroxine 150 ?g. Low sodium can be exacerbated by hypothyroidism. - Obtain TSH and free T4 tonight. - Continue home levothyroxine; adjust only if labs indicate. Tremor episodes : Intermittent shaking of legs/arms, non-syncope, non-seizure per patient; not yet evaluated. - Document episodes; offer neurology outpatient referral after acute issues resolved. - Ensure no metabolic causes (check BMP, magnesium). 02/14/2025 seen today, bmp q4h continue aspirin, lovenox 40 imdur 60 daily continue losartan 50 daily continue protonix 40 daily sodium improving slowly pt appears dehydrated PDMP PDMP Reviewed: Not Reviewed Attestations 2 Medical Necessity Statement*: Place in observation for additional assessment and management of severe hyponatremia, failed outpatient management. Diagnoses Hyponatremia E87.1 HTN (hypertension) I10 Leg swelling M79.89
[2025-02-14 08:00] VITALS: BP 131/84; PULSE 82; RESP 17; O2SAT 100
[2025-02-14 09:50] LABS: Anion Gap 19.9 (5-19); Blood Urea Nitrogen 8 mg/dL (8-23); Calcium 8.6 mg/dL (8.5-10.5); Carbon Dioxide 17 mmol/L (22-29); Chloride 93 mmol/L (98-107); Creatinine Clr Calc Pharmacy 52.5296; Glucose 140 mg/dL (65-115); Osmolality Calculated 263 mOsm/kg (285-295); Potassium 3.9 mmol/L (3.5-5.1); Sodium 126 mmol/L (136-145)
[2025-02-14 11:29] VITALS: BP 101/67; PULSE 74; RESP 16; O2SAT 97
[2025-02-14 13:35] LABS: Anion Gap 17.0 (5-19); Blood Urea Nitrogen 11 mg/dL (8-23); Calcium 8.4 mg/dL (8.5-10.5); Carbon Dioxide 22 mmol/L (22-29); Chloride 91 mmol/L (98-107); Creatinine Clr Calc Pharmacy 52.5296; Glucose 165 mg/dL (65-115); Osmolality Calculated 265 mOsm/kg (285-295); Potassium 4.0 mmol/L (3.5-5.1); Sodium 126 mmol/L (136-145)
[2025-02-14 15:50] VITALS: BP 115/78; RESP 16; TEMP 36.5; O2SAT 99
[2025-02-14 16:36] LABS: Anion Gap 19.4 (5-19); Blood Urea Nitrogen 13 mg/dL (8-23); Calcium 8.4 mg/dL (8.5-10.5); Carbon Dioxide 22 mmol/L (22-29); Chloride 89 mmol/L (98-107); Creatinine Clr Calc Pharmacy 52.5296; Glucose 132 mg/dL (65-115); Osmolality Calculated 264 mOsm/kg (285-295); Potassium 4.4 mmol/L (3.5-5.1); Sodium 126 mmol/L (136-145)
--- NOTE | 2025-02-14 16:59 | P.PN_ITS ---
Subjective 2 Subjective: no new c/o Medications: Reviewed: Yes Vitals/I&O/Wt Last Vital Signs Temp 97.7 F 02/14/25 15:50 Pulse 74 02/14/25 11:29 Resp 16 02/14/25 15:50 BP 115/78 02/14/25 15:50 Pulse Ox 99 02/14/25 15:50 O2 Del Method Room Air 02/14/25 15:50 02/14/25 02/14/25 02/14/25 06:59 14:59 22:59 Intake Total 566 / 626 2146.667 / 2146.667 Output Total 1250 / 1250 Balance -684 / -624 2146.667 / 2146.667 Weight last 48 hrs Weight 84.425 kg Weight 81.647 kg Weight 81.647 kg Physical Exam 2 Narrative: awake , alert , no distress hard of hearing S1S2 RRR per reprot Lungs clear aba no edema Data 02/14/25 02:31 02/14/25 16:01 A&P Assessment and plan 1. Hyponatremia: 1. Hyponatremia: Acute on chronic, baseline sodium levels in the low 130s range and now presented with acute worsening of sodium down to 124. Likely combination of recent diuretic use, poor p.o. intake and recent diarrhea. -Status post IV fluids in the ER-normal saline. Repeat sodium is 130. Goal correction of 6 to 8 mEq in 24 hours -switched IVFs to D5W at 50 cc an hour overnight and now switched back to NS - @ 100 cc/hr - added fluid restriction to 1500 ml/day -will resume lasix in AM . Check urine sodium and urine osmolality as well. Patient evaluated using audiovisual cart. Time spent 40 minutes. Patient's daughter at bedside and I updated the plan. PDMP PDMP Reviewed: Not Reviewed Attestations 2 Medical Necessity Statement*: PER BISIF[facility] Coding Level of Care Code Acute Code for Chg Fwd Diagnoses Hyponatremia E87.1
[2025-02-14] MEDS: psyllium powder Pkt 1 PACKET PO (17:44)
[2025-02-14 19:25] LABS: Anion Gap 20.1 (5-19); Blood Urea Nitrogen 12 mg/dL (8-23); Calcium 8.5 mg/dL (8.5-10.5); Carbon Dioxide 19 mmol/L (22-29); Chloride 91 mmol/L (98-107); Creatinine Clr Calc Pharmacy 52.5296; Glucose 158 mg/dL (65-115); Osmolality Calculated 265 mOsm/kg (285-295); Potassium 4.1 mmol/L (3.5-5.1); Sodium 126 mmol/L (136-145)
[2025-02-14 20:52] VITALS: BP 137/68; PULSE 77; RESP 15; TEMP 37.3; O2SAT 98
--- NOTE | 2025-02-14 21:44 | USR_ITS ---
PROCEDURE INFORMATION: Exam: US Duplex Lower Extremity Veins, Bilateral Exam date and time: 02/14/2025 7:31 AM Age: 84 years old Clinical indication: Screening exam; Assess for dvt TECHNIQUE: Imaging protocol: Real-time duplex ultrasound of the bilateral extremities with 2-D spring scale, color Doppler flow and spectral waveform analysis including responses to compression and other maneuvers (when performed) with image documentation. Complete exam focused on the lower extremity veins. COMPARISON: US transvaginal [id number] 06/14/2023 4:36 PM FINDINGS: Right deep veins: Unremarkable. The common femoral, femoral, proximal profunda femoral and popliteal veins are patent without thrombus. Normal Doppler waveforms. Normal compressibility and/or augmentation response. Left deep veins: Unremarkable. The common femoral, femoral, proximal profunda femoral and popliteal veins are patent without thrombus. Normal Doppler waveforms. Normal compressibility and/or augmentation response. Superficial veins: Greater saphenous veins at the saphenofemoral junctions are patent bilaterally without thrombus. Soft tissues: Unremarkable. US/CV venous duplex [facility] [id number] IMPRESSION: No evidence of deep vein thrombosis.
[2025-02-14 23:40] LABS: Anion Gap 13.3 (5-19); Blood Urea Nitrogen 12 mg/dL (8-23); Calcium 8.4 mg/dL (8.5-10.5); Carbon Dioxide 23 mmol/L (22-29); Chloride 93 mmol/L (98-107); Creatinine Clr Calc Pharmacy 52.5296; Glucose 125 mg/dL (65-115); Osmolality Calculated 261 mOsm/kg (285-295); Potassium 4.3 mmol/L (3.5-5.1); Sodium 125 mmol/L (136-145)
[2025-02-15] VITALS (7 sets, daily range): BP systolic 119–143; BP diastolic 69–85; PULSE 64–70; RESP 15–18; TEMP 36.4–36.9; O2SAT 97–100
[2025-02-15 03:03] LABS: Hematocrit 33.9 % (36-47); Hemoglobin 11.70 g/dL (11.27-16.99); Mean Corpuscular HGB Conc 34.5 g/dL (30-55); Mean Corpuscular Hemoglobin 30.2 pg (27-33); Mean Corpuscular Volume 87.6 fl (85-98); Nucleated Red Blood Cells % 0 %; Platelet Count 214 10^3/cmm (157-399); Red Blood Count 3.87 10^6/uL (3.85-5.65); White Blood Count 10.14 10^3/uL (3.29-11.43)
[2025-02-15 03:27] LABS: Anion Gap 17.3 (5-19); Blood Urea Nitrogen 11 mg/dL (8-23); Calcium 8.0 mg/dL (8.5-10.5); Carbon Dioxide 20 mmol/L (22-29); Chloride 96 mmol/L (98-107); Creatinine Clr Calc Pharmacy 52.5296; Glucose 113 mg/dL (65-115); Magnesium 2.1 mg/dL (1.7-2.3); Osmolality Calculated 268 mOsm/kg (285-295); Potassium 4.3 mmol/L (3.5-5.1); Sodium 129 mmol/L (136-145)
[2025-02-15 07:54] LABS: Anion Gap 15.0 (5-19); Blood Urea Nitrogen 9 mg/dL (8-23); Calcium 8.0 mg/dL (8.5-10.5); Carbon Dioxide 18 mmol/L (22-29); Chloride 97 mmol/L (98-107); Creatinine Clr Calc Pharmacy 52.5104; Glucose 98 mg/dL (65-115); Osmolality Calculated 261 mOsm/kg (285-295); Potassium 4.0 mmol/L (3.5-5.1); Sodium 126 mmol/L (136-145)
--- NOTE | 2025-02-15 14:33 | P.PN_ITS ---
Subjective 2 Subjective: denies any complaints Medications: Reviewed: Yes Vitals/I&O/Wt Last Vital Signs Temp 97.9 F 02/15/25 11:42 Pulse 64 02/15/25 11:42 Resp 18 02/15/25 11:42 BP 126/70 02/15/25 11:42 Pulse Ox 99 02/15/25 11:42 O2 Del Method Room Air 02/15/25 11:42 02/14/25 02/15/25 02/15/25 22:59 06:59 14:59 Intake Total 321.667 / 2468.334 240 / 2708.334 720 / 720 Output Total 300 / 300 400 / 400 Balance 321.667 / 2468.334 -60 / 2408.334 320 / 320 Weight last 48 hrs Weight 84.368 kg Weight 84.425 kg Weight 81.647 kg Physical Exam 2 Narrative: awake , alert , no distress hard of hearing S1S2 RRR per reprot Lungs clear aba no edema Data 02/15/25 02:46 02/15/25 07:31 A&P Assessment and plan 1. Hyponatremia: 1. Hyponatremia: Acute on chronic, baseline sodium levels in the low 130s range and now presented with acute worsening of sodium down to 124. Likely combination of recent diuretic use, poor p.o. intake and recent diarrhea. -Status post IV fluids in the ER-normal saline. Repeat sodium is 130. Goal correction of 6 to 8 mEq in 24 hours -s/p IVFs - NS - added fluid restriction to 1200 ml/day -added lasix 320 mg daily - Urine omolality pending ,U na 26. Patient evaluated using audiovisual cart. Time spent 40 minutes. Patient's daughter at bedside and I updated the plan. PDMP PDMP Reviewed: Not Reviewed Attestations 2 Medical Necessity Statement*: per sukhi Coding Level of Care Code Acute Code for Chg Fwd Diagnoses Hyponatremia E87.1
[2025-02-15] MEDS: psyllium powder Pkt 1 PACKET PO (17:37)
--- NOTE | 2025-02-15 19:42 | P.PN_ITS ---
Subjective 2 Subjective: Patient with sodium in the 120s from a baseline of 130s status post recent diuresis. Nephrology on board patient on fluid restriction of 1200. Patient denies any symptomatology feeling okay today sodium 126 Vitals/I&O/Wt Last Vital Signs Temp 97.9 F 02/15/25 16:03 Pulse 65 02/15/25 16:03 Resp 16 02/15/25 16:03 BP 133/69 02/15/25 16:03 Pulse Ox 97 02/15/25 16:03 O2 Del Method Room Air 02/15/25 16:03 02/15/25 02/15/25 02/15/25 06:59 14:59 22:59 Intake Total 240 / 2708.334 720 / 720 200 / 920 Output Total 300 / 300 400 / 400 300 / 700 Balance -60 / 2408.334 320 / 320 -100 / 220 Weight last 48 hrs Weight 84.368 kg Weight 84.425 kg Weight 81.647 kg Physical Exam 2 Narrative: General The patient is in no apparent distress HEENT normocephalic atraumatic neck neck is supple cardiovascular heart rate is regular lungs are pretty much clear abdomen soft nontender nondistended unremarkable extremities are intact no edema has good pulses neurology he has no focality lab studies lab studies reviewed and noted. Data 02/15/25 02:46 02/15/25 07:31 A&P Assessment and plan 1. Hyponatremia: Patient with hyponatremia acute on chronic with recent diuresis followed with worsening hyponatremia - Continue with nephrology recommendation of fluid restriction of 1200 - May consider salt tablets patient is a known chronic hyponatremia - Follow sodium in a.m. and optimize accordingly Plan: Optimize hyponatremia as per above PDMP PDMP Reviewed: Last Reviewed 02/15/25 19:47 by Migdalia Booker MD Attestations 2 Medical Necessity Statement*: Patient needs to optimize hyponatremia acute on chronic with worsening features will need at least 48 hours to optimize prior to discharge. Nephrology on case and following Coding Level of Care Code 39873 Diagnoses Hyponatremia E87.1 Time Spent (min) 30
--- NOTE | 2025-02-15 19:58 | PM.PN ---
Subjective Subjective: Patient is seen with hyponatremia and slightly improving. Mental status not worsening. Patient sodium had proving to be acute on chronic. Nephrology on case patient may benefit from salt tablet patient is with fluid restriction Vitals/I&O/Wt Last Vital Signs Temp 98.1 F 02/15/25 19:56 Pulse 65 02/15/25 19:56 Resp 16 02/15/25 19:56 BP 119/76 02/15/25 19:56 Pulse Ox 98 02/15/25 19:56 O2 Del Method Room Air 02/15/25 19:56 02/15/25 02/15/25 02/15/25 06:59 14:59 22:59 Intake Total 240 / 2708.334 720 / 720 200 / 920 Output Total 300 / 300 400 / 400 300 / 700 Balance -60 / 2408.334 320 / 320 -100 / 220 Weight last 48 hrs Weight 84.368 kg Weight 84.425 kg Weight 81.647 kg Physical Exam Narrative: Patient seen and evaluated 02/15/2025 with a noted change in mental status presenting with low sodium today patient is doing better sodium level gradually improving but still hyponatremic fluid restriction continued at 1200 HEENT normocephalic atraumatic neck neck is supple cardiovascular heart rate is regular lungs are pretty much clear abdomen soft nontender nondistended unremarkable extremities intact no edema has good pulses neurology he has no focality lab studies lab studies reviewed and noted. Data 02/15/25 02:46 02/16/25 01:26 A&P Assessment and plan 1. Hyponatremia: - Continue to monitor acute on chronic hyponatremia - Must continue to optimize - Will initiate sodium tablets oral trial - Continue fluid restriction - I appreciate the input of patient relations coordinator Will continue to monitor and optimize - If mental status continue to stay stable or improve - Patient will be for tentative discharge in another day Plan: GI and DVT prophylaxis in place PDMP PDMP Reviewed: Last Reviewed 02/15/25 19:47 by Migdalia Booker MD Attestations Medical Necessity Statement*: Sodium tablet initiated will continue with fluid restriction and if it is okay and if patient is doing better or stay stable likely need another day for discharge having a tentative discharge to be 02/16/2025 if okay with patient relations coordinator Coding Level of Care Code 15805 Diagnoses Hyponatremia E87.1 Time Spent (min) 30
[2025-02-16] VITALS (7 sets, daily range): BP systolic 119–159; BP diastolic 68–88; PULSE 56–67; RESP 16; TEMP 36.3–36.6; O2SAT 93–100
[2025-02-16 02:52] LABS: Alanine Aminotransferase 21 U/L (0-33); Albumin Level 3.3 g/dL (3.5-5.2); Alkaline Phosphatase 80 U/L (35-105); Anion Gap 16.4 (5-19); Aspartate Amino Transferase 24 U/L (0-32); Blood Urea Nitrogen 10 mg/dL (8-23); Calcium 8.3 mg/dL (8.5-10.5); Carbon Dioxide 22 mmol/L (22-29); Chloride 94 mmol/L (98-107); Creatinine Clr Calc Pharmacy 52.5104; Globulin 2.6 g/dL (1.3-4.6); Glucose 100 mg/dL (65-115); Osmolality Calculated 265 mOsm/kg (285-295); Potassium 4.4 mmol/L (3.5-5.1); Sodium 128 mmol/L (136-145); Total Protein 5.9 g/dL (6.6-8.7)
[2025-02-16] MEDS: psyllium powder Pkt 1 PACKET PO (06:03)
--- NOTE | 2025-02-16 09:08 | P.PN_ITS ---
Subjective 2 Subjective: denies any complaints Medications: Reviewed: Yes Vitals/I&O/Wt Last Vital Signs Temp 97.8 F 02/16/25 08:11 Pulse 63 02/16/25 08:11 Resp 16 02/16/25 08:11 BP 152/80 02/16/25 08:11 Pulse Ox 100 02/16/25 08:11 O2 Del Method Room Air 02/16/25 08:11 02/15/25 02/16/25 02/16/25 22:59 06:59 14:59 Intake Total 200 / 920 0 / 920 Output Total 300 / 700 300 / 1000 Balance -100 / 220 -300 / -80 Weight last 48 hrs Weight 81.601 kg Weight 84.368 kg Physical Exam 2 Narrative: awake , alert , no distress hard of hearing S1S2 RRR per reprot Lungs clear baa no edema Data 02/15/25 02:46 02/16/25 01:26 A&P Assessment and plan 1. Hyponatremia: 1. Hyponatremia: Acute on chronic, baseline sodium levels in the low 130s range and now presented with acute worsening of sodium down to 124. Likely combination of recent diuretic use, poor p.o. intake and recent diarrhea. Goal correction of 6 to 8 mEq in 24 hours -s/p IVFs - NS - added fluid restriction to 1200 ml/day -added lasix 20 mg bid , - added salt tabs 1 gm BID - Urine omolality pending ,U na 26. From renal standpoint, patient can be discharged with close follow-up with labs.. Patient evaluated using audiovisual cart. Time spent 40 minutes. Patient's daughter at bedside and I updated the plan. PDMP PDMP Reviewed: Not Reviewed Attestations 2 Medical Necessity Statement*: Per medicine team Coding Level of Care Code Acute Code for Chg Fwd Diagnoses Hyponatremia E87.1
--- NOTE | 2025-02-16 14:24 | PM.DCS ---
Discharge Providers Date of Admission: 02/13/25 21:06 Date of Discharge: February 16, 2025 Attending Provider at Admission: Marek Lunsford Attending Provider at Discharge: Migdalia Booker MD Primary Care Provider: Luís Márquez MD Diagnoses at Discharge Discharge Diagnosis 1. Hyponatremia: Reason for Visit Reason for Visit: abd lab Hospital Course Hospital Course Ellen Bear is a 84 year old female patient with a history of coronary heart disease, hypertension, cardiomegaly, hyperlipidemia, breast cancer, osteoarthritis and hypothyroidism presenting to the ED after outpatient labs yesterday revealed a sodium of 121 mEq/L (re-checked today at 124 mEq/L). One week ago Lasix 40 mg daily was started for severe bilateral leg and foot swelling that prevented shoe use. Over the weekend the patient had diarrhea (Sunday?Sunday) but no nausea or vomiting. They report persistent dry mouth, increased thirst today, intermittent light-headedness/dizziness, and chronic cold intolerance. Appetite is baseline though limited today (two bites of hamburger at noon). No deliberate sodium restriction. Blood pressures were elevated at the PCP?s office Sunday (170/100 mmHg, then 160/100 mmHg) and in ED today 150/90 mmHg. No chest pain, shortness of breath, or visual changes reported beyond known macular degeneration. The patient experiences episodic shaking/tremor of unclear etiology. Home medications (per patient) include furosemide, potassium supplement, isosorbide, baby aspirin, levothyroxine 150 ?g, and PreserVision AREDS2. Daughter is power of estate attorney. Code status discussed; patient desires full resuscitation. Patient serum sodium today of discharge is 128. This had been noted to be an acute on chronic nephrology on the case and had related salt tablets I ordered this yesterday. Patient sodium yesterday was 126. I am patient is continuing to do well with no symptomatology. Actually wanted to go home at this time. Must continue to follow through and optimize. Physical Exam Narrative: Generally patient looks good and ready to be discharged today patient had been optimized with fluid restriction for an acute on chronic hyponatremia. Patient had received all had indeed been initiated on lower dose of Lasix at 20 mg twice daily during this hospitalization. Patient has peripheral lower extremity edema and has nothing to do with heart failure. Patient gets seen by the primary care doctor who plan to do an echocardiogram outpatient prior to coming into the hospital. HEENT normocephalic/atraumatic neck neck is supple cardiovascular heart is regular lungs are pretty much clear abdomen soft nontender nondistended unremarkable extremities are intact with a trace edema has good pulses neurology has no focality lab studies lab studies reviewed and noted. Discharge Data Studies Completed and Pending Completed Studies During Hospitalization Category [place] [id number] Routine Ultrasound 02/14/25 21:44 Completed Pending at discharge Category Date Time Status Osmolality Urine Routine Lab 02/13/25 16:51 Received Radiology Impressions Venous Duplex 02/14/25 21:44 IMPRESSION: No evidence of deep vein thrombosis. Laboratory Results WBC 10.14 10^3/uL (3.29-11.43) 02/15/25 02:46 Corrected WBC Cancelled 02/14/25 01:54 RBC 3.87 10^6/uL (3.85-5.65) 02/15/25 02:46 Hgb 11.70 g/dL (11.27-16.99) 02/15/25 02:46 Hct 33.9 % (36-47) L 02/15/25 02:46 MCV 87.6 fl (85-98) 02/15/25 02:46 MCH 30.2 pg (27-33) 02/15/25 02:46 MCHC 34.5 g/dL (30-55) 02/15/25 02:46 RDW 13.6 % (12.1-15.1) 02/15/25 02:46 Plt Count 214 10^3/cmm (157-399) 02/15/25 02:46 MPV 9.9 fL (7.4-10.4) 02/15/25 02:46 Gran % Cancelled 02/14/25 01:54 Neut % (Auto) 59.2 % 02/15/25 02:46 Lymph % (Auto) 20.6 % 02/15/25 02:46 Meagher % (Auto) 14.1 % 02/15/25 02:46 Eos % (Auto) 3.8 % 02/15/25 02:46 Baso % (Auto) 0.7 % 02/15/25 02:46 Neut # (Auto) 6.00 10^3/uL (1.8-7.7) 02/15/25 02:46 Lymph # (Auto) 2.1 10^3/uL (0.8-4.8) 02/15/25 02:46 Meagher # (Auto) 1.4 10^3/uL (0.2-0.9) H 02/15/25 02:46 Eos # (Auto) 0.4 10^3/uL (0.0-0.8) 02/15/25 02:46 Baso # (Auto) 0.1 10^3/uL (0.0-0.1) 02/15/25 02:46 Absolute Gran (auto) Cancelled 02/14/25 01:54 Nucleated RBC % (auto) 0 % 02/15/25 02:46 Nucleated RBCs # 0.0 /100WBC 02/15/25 02:46 Sodium 128 mmol/L (136-145) L 02/16/25 01:26 Potassium 4.4 mmol/L (3.5-5.1) 02/16/25 01:26 Chloride 94 mmol/L (98-107) L 02/16/25 01:26 Carbon Dioxide 22 mmol/L (22-29) 02/16/25 01:26 Anion Gap 16.4 (5-19) 02/16/25 01:26 BUN 10 mg/dL (8-23) 02/16/25 01:26 Creatinine 0.5 mg/dL (0.5-0.9) 02/16/25 01:26 GFR Calculation Not Reportable 02/16/25 01:26 Glucose 100 mg/dL (65-115) 02/16/25 01:26 Calculated Osmolality 265 mOsm/kg (285-295) L 02/16/25 01:26 Calcium 8.3 mg/dL (8.5-10.5) L 02/16/25 01:26 Magnesium 2.1 mg/dL (1.7-2.3) 02/15/25 02:46 Total Bilirubin 0.5 mg/dL (0.15-1.2) 02/16/25 01:26 AST 24 U/L (0-32) 02/16/25 01:26 ALT 21 U/L (0-33) 02/16/25 01:26 Alkaline Phosphatase 80 U/L (35-105) 02/16/25 01:26 Total Protein 5.9 g/dL (6.6-8.7) L 02/16/25 01:26 Albumin 3.3 g/dL (3.5-5.2) L 02/16/25 01:26 Globulin 2.6 g/dL (1.3-4.6) 02/16/25 01:26 Lipase 47 U/L (13-60) 02/13/25 16:39 TSH 2.71 uIU/mL (0.27-4.20) 02/13/25 16:39 Free T4 1.92 ng/dL (0.82-1.77) H 02/13/25 16:39 Urine Color Yellow (Yellow) 02/13/25 16:51 Urine Appearance Clear (CLEAR) 02/13/25 16:51 Urine pH 7.5 (5-7) 02/13/25 16:51 Ur Specific [place] 1.004 (1.005-1.030) L 02/13/25 16:51 Urine Protein Negative (Negative) 02/13/25 16:51 Urine Glucose (UA) Negative (Normal) 02/13/25 16:51 Urine Ketones Trace (Negative) 02/13/25 16:51 Urine Blood Negative (Negative) 02/13/25 16:51 Urine Nitrate Negative (Negative) 02/13/25 16:51 Urine Bilirubin Negative (Negative) 02/13/25 16:51 Urine Urobilinogen 0.2 mg/dL (Negative) 02/13/25 16:51 Ur Leukocyte Esterase Negative (Negative) 02/13/25 16:51 Urine RBC 0-2 /hpf (0-2) 02/13/25 16:51 Urine WBC 0-5 /hpf (0-5) 02/13/25 16:51 Ur Squamous Epith Cells 0-5 /hpf (0-5) 02/13/25 16:51 Amorphous Sediment Not Reportable 02/13/25 16:51 Urine Bacteria None seen /hpf (NONE) 02/13/25 16:51 Hyaline Casts 0-4 /lpf H 02/13/25 16:51 Ur Random Sodium 26 mmol/L 02/13/25 16:51 Vitals Last Vital Signs Temp 97.4 F L 02/16/25 12:08 Pulse 56 L 02/16/25 12:08 Resp 16 02/16/25 12:08 BP 142/74 02/16/25 12:08 Pulse Ox 93 02/16/25 12:08 O2 Del Method Room Air 02/16/25 12:08 Discharge Plan Discharge Patient Disposition: Home Condition: Stable Prescriptions: New furosemide 20 mg Tablet 20 mg PO BID@08,16 Qty: 60 0RF sodium chloride 1,000 mg Tablet,Soluble 1,000 mg PO BID@0500,1700 Qty: 60 0RF losartan 50 mg Tablet 50 mg PO DAILY Qty: 30 0RF Continued All Day Allergy (cetirizine) 10 mg capsule 10 mg PO DAILY PRN (Reason: allergies) levothyroxine 88 mcg capsule 88 mcg PO DAILY prevagen 1 tab PO DAILY pantoprazole 40 mg tablet,delayed release (DR/EC) 40 mg PO DAILY fluticasone propionate [Flonase Allergy Relief] 50 mcg/actuation spray,suspension 1 spray intranasal DAILY PRN (Reason: allergies) Rx Instructions: administer into each nostril PreserVision AREDS [phone] [id number] capsule 1 cap PO BID nitroglycerin 0.4 mg tablet, sublingual 0.4 mg sublingual Q5M PRN (Reason: chest pain) 30 Days Qty: 30 3RF Rx Instructions: until response; do not exceed 3 doses per episode celecoxib 200 mg capsule 200 mg PO DAILY alendronate 70 mg tablet 70 mg PO Q7D Rx Instructions: on Sunday diclofenac sodium 1 % gel 4 g topical QID PRN (Reason: joint pain) Qty: 100 2RF Rx Instructions: apply to single knee, ankle, foot; for foot includes sole/toes/top of foot isosorbide mononitrate 60 mg tablet extended release 24 hr 60 mg PO QPM Qty: 90 3RF Metamucil 3.4 gram/5.4 gram Powder 1 tbsp PO BID aspirin [Aspir-81] 81 mg Tablet,Delayed Release (Dr/Ec) 81 mg PO QPM acetaminophen 500 mg Tablet 500 mg PO Q6H PRN (Reason: Pain) ergocalciferol (vitamin D2) [Vitamin D2] 1,250 mcg (50,000 unit) capsule 50,000 unit PO .Q30D Rx Instructions: 10th of each month telmisartan 40 mg tablet 40 mg PO DAILY ezetimibe 10 mg tablet 10 mg PO DAILY meclizine 25 mg tablet 25 mg PO QID PRN (Reason: dizziness) Qty: 20 0RF ondansetron 4 mg tablet,disintegrating 4 mg PO Q8H PRN (Reason: nausea and vomiting) Qty: 10 0RF Director Of Valuation OK for DC: Cardiology Discharge Order = DC NOW: Discharge Order (Routine); Ordered 02/16/25 Ordered By: Migdalia Booker Referrals: Luís Márquez MD [Primary Care Provider, [facility]] - 02/19/25 9:30 am Discharge Diet: Cardiac Discharge Activity: Resume usual activity Patient Instructions: Furosemide (By mouth), Losartan (By mouth), Hyponatremia (GEN), Opioid Safety, Patient Portal & Cesar Instructions Discharge Attestations Time Spent in Discharge Care*: less than 30 min Specific Discharge Activities: Other discharge activites (optional): Activities as tolerated Time Spent in Smoking Cessation: 3 to 10 minutes Patient does not smoke Quality Metrics Clinical Quality Measures [ No reported AMI, CVA or VTE this stay] Coding Level of Care Code 35648 Diagnoses Hyponatremia E87.1 Time Spent (min) 30
== END 2025-02-16 16:40 | disposition home or self-care (01) ==
LOC: ER 19:27 → MEDSURG 21:06
PROVIDERS: Family Medicine; Hospitalist; Internal Medicine; Admitting Provider Internal Medicine; Emergency Provider Student in an Organized Health Care Education/Training Program; PCP Family Medicine; Visit Provider Internal Medicine
DX: E87.1 Hypo-osmolality and hyponatremia (principal); Z79.82 Long term (current) use of aspirin; K21.9 Gastro-esophageal reflux disease without esophagitis; Z86.79 Personal history of other diseases of the circulatory system; I10 Essential (primary) hypertension; Z85.3 Personal history of malignant neoplasm of breast; M19.90 Unspecified osteoarthritis, unspecified site; E03.9 Hypothyroidism, unspecified; M79.89 Other specified soft tissue disorders
CPT/HCPCS: 36415; 80048; 80053; 81001; 83690; 83735; 83935; 84295; 84300; 84439; 84443; 85025; 93005; 93970; 96372; 99285; G0378; J1650; J7030; J7070; J9999; Q3014

== ENCOUNTER 2025-02-17 09:33 | Outpatient (CLI) | payer MEDICARE, OTHER, SELFPAY ==
--- NOTE | 2025-02-17 09:47 | USCV_ITS ---
[place], [place] Age: 84 Gender: F : 1940 Exam Date: 02/17/2025 10:04 Ordering Phys: Luís Márquez MD Technologist: NITHIN Exam Location: [facility] Indication: CHF BP: 136 / 85 HR: 53 Rhythm: Sinus Technical Quality: Adequate MEASUREMENTS (Male / Female) Normal Values 2D ECHO LV Diastolic Diameter PLAX 4.8 cm 4.2 - 5.9 / 3.9 - 5.3 cm IVS Diastolic Thickness 1.1 cm 0.6 - 1.0 / 0.6 - 0.9 cm IVS Systolic Thickness 1.5 cm LVPW Diastolic Thickness 1.7 cm 0.6 - 1.0 / 0.6 - 0.9 cm LVPW Systolic Thickness 2.0 cm LVOT Diameter 1.9 cm LV Ejection Fraction 2D Teich 58.3 % LV Ejection Fraction MOD 4C 62.8 % LV Ejection Fraction MOD 2C 49.4 % LV Ejection Fraction 2C AL 54.4 % LA Diameter 3.3 cm RA Systolic Volume 4C AL 40.5 ml RA Systolic Volume 4C MOD 38.5 ml LA Sys Volume AL 54.0 cm cubed LA Sys Volume Index AL 27.6 cm cubed/m squared Aorta at Sinotubular Diameter 2.4 cm M-MODE LA Ao Ratio MM 1.7 AV Cusp Separation MM 2.4 cm DOPPLER AV Peak Velocity 123.0 cm/s LVOT Peak Velocity 95.0 cm/s AV Area Cont Eq vti 2.0 cm squared AV Area Cont Eq pk 2.2 cm squared MV Peak Velocity 81.0 cm/s MV Area PHT 3.4 cm squared Mitral E to A Ratio 0.9 TV Peak Velocity 148.5 cm/s TR Peak Velocity 209.0 cm/s TR Peak Gradient 17.5 mmHg TV Peak E Velocity 88.0 cm/s PV Peak Velocity 130.0 cm/s FINDINGS Left Ventricle Normal left ventricular size, systolic function and wall thickness, with no regional wall motion abnormalities. Left ventricular ejection fraction is estimated at 60 %. Grade I/IV diastolic dysfunction (abnormal relaxation filling pattern), normal to mildly elevated filling pressures. Right Ventricle The right ventricle is normal in size and function. Right Atrium The right atrium is normal in size. Left Atrium The left atrium is normal in size. Mitral Valve Mildly thickened mitral valve. No mitral valve stenosis. Trace mitral valve regurgitation. Aortic Valve Mild aortic valve calcification. No aortic valve stenosis. Trace to mild aortic valve regurgitation. Tricuspid Valve Mild tricuspid valve regurgitation. Pulmonic Valve Structurally normal pulmonic valve without significant stenosis. There is no pulmonic regurgitation. Pericardium Normal pericardium without effusion. Aorta Normal ascending aorta dimension. IVC The inferior vena cava appears normal. CONCLUSIONS Normal left ventricular size, systolic function and wall thickness, with no regional wall motion abnormalities. Left ventricular ejection fraction is estimated at 60 %. Grade I/IV diastolic dysfunction (abnormal relaxation filling pattern), normal to mildly elevated filling pressures. Mildly thickened mitral valve. No mitral valve stenosis. Trace mitral valve regurgitation. Mild aortic valve calcification. No aortic valve stenosis. Trace to mild aortic valve regurgitation. There is no pericardial effusion. Right atrial pressure is around 5 mm of mercury. Ford Flores MD (Electronically Signed) Final Date: 20 February 2025 13:51 S
== END 2025-02-17 09:34 | disposition home or self-care (01) ==
LOC: RAD 09:33
PROVIDERS: PCP Family Medicine; Visit Provider Family Medicine
DX: I50.9 Heart failure, unspecified (principal); R93.1 Abnormal findings on diagnostic imaging of heart and coronary circulation; I35.8 Other nonrheumatic aortic valve disorders; I35.1 Nonrheumatic aortic (valve) insufficiency; I07.1 Rheumatic tricuspid insufficiency
CPT/HCPCS: 93306

== ENCOUNTER → 2025-05-15 08:24 | Outpatient (BNVA) | payer MEDICARE, OTHER, SELFPAY | PROVIDERS: PCP Family Medicine; Visit Provider Nurse Practitioner | DX: M17.11 Unilateral primary osteoarthritis, right knee (principal) | CPT/HCPCS: 20610; J1100; J2795; J3301; J9999 ==

== ENCOUNTER 2025-07-08 08:16 | Outpatient (CLI) | payer MEDICARE, OTHER, SELFPAY ==
--- NOTE | 2025-07-08 08:28 | MM_ITS ---
WS: [id number] DIAGNOSTIC RIGHT DIGITAL BREAST TOMOSYNTHESIS MAMMOGRAPHY WITH CAD HISTORY: HX OF BREAST CANCER COMPARISON: 05/28/2024, 04/03/2023, 03/27/2022 Breast composition: The breasts are heterogeneously dense, which may obscure small masses. No interval change in appearance of the RIGHT breast or parenchyma. Small scattered benign calcifications. No new areas of architectural distortion. MM/MM diag RT tomosynthesis [id number] IMPRESSION: BI-RADS: 2 - Benign FOLLOW UP: 1 Year Follow-up
== END 2025-07-08 08:17 | disposition home or self-care (01) ==
PROVIDERS: PCP Family Medicine; Visit Provider Family Medicine
DX: Z85.3 Personal history of malignant neoplasm of breast (principal); R92.1 Mammographic calcification found on diagnostic imaging of breast; R92.333 Mammographic heterogeneous density, bilateral breasts; R92.8 Other abnormal and inconclusive findings on diagnostic imaging of breast
CPT/HCPCS: 77061; G0279

== ENCOUNTER → 2025-07-15 07:45 | Outpatient (BNVA) | payer MEDICARE, OTHER, SELFPAY | PROVIDERS: PCP Family Medicine; Visit Provider Nurse Practitioner Family | DX: I25.10 Atherosclerotic heart disease of native coronary artery without angina pectoris (principal); I10 Essential (primary) hypertension; E78.00 Pure hypercholesterolemia, unspecified | CPT/HCPCS: 99214 ==